=== PATIENT | male | born 1985 | race Caucasian/White ===

== ENCOUNTER 2019-05-28 15:08 | Day surgery (SDC) | payer SELFPAY ==
[~2019-05-28] VITALS: Ht 185.4 cm; Wt 131.5 kg
[2019-05-28] VITALS (9 sets, daily range): BP systolic 118–142; BP diastolic 71–101
--- NOTE | 2019-05-28 15:10 | NUR ---
NOTIFIED OLIVIA MEYER OF PT CONDITION.
[2019-05-28] MEDS ORDERED: fentaNYL INJECTION 100 MCG/2 ML AMP IVP ONE ×3 (15:45→19:45)
[2019-05-28] MEDS ORDERED: KETOROLAC 30 MG/ML VIAL IVP ONE (15:45)
--- NOTE | 2019-05-28 16:00 | ED Chest Pain ---
General Chief Complaint: Chest Pain Stated Complaint: CP Nursing Triage Note: PT AMBULATE TO ROOM 06 WITH C/O CHEST PAIN STARTING THIS MORNING. PT STATES HE DID NOT COME IN EARLIER BECAUSE HE "DOESN'T LIKE GOING TO THE DOCTOR". Nursing Sepsis Screen: No Definite Risk Source: patient Exam Limitations: no limitations History of Present Illness Date Seen by Provider: May 28, 2019 Time Seen by Provider: 15:58 Initial Comments To ER, when asked what is going on today he states "I'm at the doctor's office". His elaborates that he's had some epigastric abdominal pain that radiates through the back deep breathing makes the pain worse. He's had several episodes of vomiting. No fevers or chills or bowel changes. Timing/Duration: changing over time Severity/Quality: moderate Location: epigastric Radiation: no radiation ASA po SENIOR PRODUCT CONSULTANT: No NTG SL SENIOR PRODUCT CONSULTANT: No Associated Symptoms: nausea/vomiting Allergies and Home Medications Allergies Coded Allergies: No Known Drug Allergies (Unverified , 05/28/19) Patient Home Medication List Home Medication List Reviewed: Yes Review of Systems Review of Systems Constitutional: see HPI EENTM: No Symptoms Reported Respiratory: No Symptoms Reported Cardiovascular: No Symptoms Reported Gastrointestinal: See HPI, Abdominal Pain, Nausea, Vomiting Genitourinary: No Symptoms Reported Musculoskeletal: no symptoms reported Skin: no symptoms reported Psychiatric/Neurological: No Symptoms Reported Endocrine: No Symptoms Reported Past Wpxeire-Gqqwaj-Hicdkr Hx Patient Social History Alcohol Use: Denies Use Recreational Drug Use: No Smoking Status: Current Everyday Smoker Type Used: Cigars 2nd Hand Smoke Exposure: Yes Recent Foreign Travel: No Contact w/Someone Who Travel: No Recent Infectious Disease Expo: No Recent Hopitalizations: No Physical Abuse: No Sexual Abuse: No Mistreated: No Fear: No Seasonal Allergies Seasonal Allergies: No Past Medical History Surgeries: No Respiratory: No Cardiac: No Neurological: No Sexually Transmitted Disease: No Genitourinary: No Gastrointestinal: No Musculoskeletal: No Endocrine: No HEENT: No Cancer: No Psychosocial: Yes ADD/ADHD Integumentary: No Blood Disorders: No Physical Exam Vital Signs Vital Signs - First Documented 05/28/19 15:42 Temp 97.5 Pulse 75 B/P (MAP) 153/102 (119) O2 Delivery Room Air Capillary Refill : Less Than 3 Seconds Height, Weight, BMI Height: 6'1.00" Weight: 290lbs. oz. 131.814782dm; BMI Method:Stated General Appearance: No Apparent Distress, WD/WN, Obese HEENT: PERRL/EOMI, TMs Normal Neck: Full Range of Motion, Normal Inspection Respiratory: No Accessory Muscle Use, No Respiratory Distress Cardiovascular: Regular Rate, Rhythm, Normal Peripheral Pulses Gastrointestinal: Normal Bowel Sounds, Soft, Tenderness Extremity: Normal Capillary Refill, Normal Inspection Neurologic/Psychiatric: Alert, Oriented x3 Skin: Normal Color, Warm/Dry Progress/Results/Core Measures Results/Orders Lab Results Laboratory Tests Test 05/28/19 16:01 Range/Units White Blood Count 19.0 H 4.3-11.0 10^3/uL Red Blood Count 4.76 4.35-5.85 10^6/uL Hemoglobin 14.5 13.3-17.7 G/DL Hematocrit 42 40-54 % Mean Corpuscular Volume 88 80-99 FL Mean Corpuscular Hemoglobin 31 25-34 PG Mean Corpuscular Hemoglobin Concent 35 32-36 G/DL Red Cell Distribution Width 13.1 10.0-14.5 % Platelet Count 356 130-400 10^3/uL Mean Platelet Volume 10.5 H 7.4-10.4 FL Neutrophils (%) (Auto) 87 H 42-75 % Lymphocytes (%) (Auto) 7 L 12-44 % Monocytes (%) (Auto) 6 0-12 % Eosinophils (%) (Auto) 0 0-10 % Basophils (%) (Auto) 0 0-10 % Neutrophils # (Auto) 16.5 H 1.8-7.8 X 10^3 Lymphocytes # (Auto) 1.3 1.0-4.0 X 10^3 Monocytes # (Auto) 1.1 H 0.0-1.0 X 10^3 Eosinophils # (Auto) 0.1 0.0-0.3 10^3/uL Basophils # (Auto) 0.0 0.0-0.1 10^3/uL Neutrophils % (Manual) 75 % Lymphocytes % (Manual) 10 % Monocytes % (Manual) 7 % Eosinophils % (Manual) 2 % Basophils % (Manual) 1 % Band Neutrophils 5 % Microcytosis Macrocytosis Blood Morphology Comment NORMAL D-Dimer <= 0.27 0.00-0.49 UG/ML Sodium Level 139 135-145 MMOL/L Potassium Level 4.3 3.6-5.0 MMOL/L Chloride Level 104 98-107 MMOL/L Carbon Dioxide Level 23 21-32 MMOL/L Anion Gap 12 5-14 MMOL/L Blood Urea Nitrogen 11 7-18 MG/DL Creatinine 0.87 0.60-1.30 MG/DL Estimat Glomerular Filtration Rate > 60 BUN/Creatinine Ratio 13 Glucose Level 161 H 70-105 MG/DL Calcium Level 10.0 8.5-10.1 MG/DL Corrected Calcium 9.6 8.5-10.1 MG/DL Total Bilirubin 0.9 0.1-1.0 MG/DL Aspartate Amino Transf (AST/SGOT) 21 5-34 U/L Alanine Aminotransferase (ALT/SGPT) 20 0-55 U/L Alkaline Phosphatase 72 40-136 U/L Troponin I < 0.028 <0.028 NG/ML Total Protein 8.0 6.4-8.2 GM/DL Albumin 4.5 3.2-4.5 GM/DL Lipase 10 8-78 U/L My Orders Orders - OLIVIA MEYER APRN Cbc With Automated Diff (05/28/19 15:43) Comprehensive Metabolic Panel (05/28/19 15:43) Troponin I (05/28/19 15:43) Fibrin Degradation Products (05/28/19 15:43) Ekg Tracing (05/28/19 15:43) Ed Iv/Invasive Line Start (05/28/19 15:43) Us Gallbladder [id number] (05/28/19 15:43) Lipase (05/28/19 15:43) Ketorolac Injection (Toradol Injection) (05/28/19 15:45) Fentanyl Injection (Sublimaze Injection (05/28/19 15:45) Chest 1 View, Ap/Pa Only (05/28/19 15:57) Manual Differential (05/28/19 16:01) Ct Abdomen/Pelvis W (05/28/19 16:27) Ct Chest/Abdomen/Pelvis W (05/28/19 16:29) Iohexol Injection (Omnipaque 350 Mg/Ml 1 (05/28/19 16:45) Received Contrast (Hold Metformin- Contr (05/28/19 16:45) Ns (Ivpb) (Sodium Chloride 0.9% Ivpb Bag (05/28/19 16:45) Ns Iv 1000 Ml (Sodium Chloride 0.9%) (05/28/19 17:15) Antacid Suspension (Mylanta Suspension (05/28/19 17:15) Lidocaine 2% Viscous 15 Ml (Xylocaine Vi (05/28/19 17:15) Medications Given in ED Current Medications Medications Dose Ordered Sig/Diamante Route Start Time Stop Time Status Last Admin Dose Admin Fentanyl Citrate 50 mcg ONCE ONCE IVP 05/28/19 15:45 05/28/19 15:46 DC 05/28/19 16:07 50 MCG Iohexol 100 ml ONCE ONCE IV 05/28/19 16:45 05/28/19 16:46 DC 05/28/19 17:02 100 ML Ketorolac Tromethamine 15 mg ONCE ONCE IVP 05/28/19 15:45 05/28/19 15:46 DC 05/28/19 16:07 15 MG Sodium Chloride 100 ml ONCE ONCE IV 05/28/19 16:45 05/28/19 16:46 DC 05/28/19 17:03 80 ML Vital Signs/I&O 05/28/19 05/28/19 15:42 15:51 Temp 97.5 Pulse 75 B/P (MAP) 153/102 (119) O2 Delivery Room Air Room Air Blood Pressure Mean: 119 Diagnostic Imaging Diagonstic Imaging: Xray, Ultrasound Comments NAME: FAISAL BULLOCK [facility] REC#: [id number] PT STATUS: REG ER : 1985 PHYSICIAN: OLIVIA MEYER APRN ADMIT DATE: 05/28/19/ER Draft Date of Exam:05/28/19 US GALLBLADDER [id number] PROCEDURE: US Gallbladder. TECHNIQUE: Multiple real-time grayscale images were obtained over the right upper quadrant in various projections. INDICATION: Right upper quadrant pain, chest pain. FINDINGS: The gallbladder appeared normal. No stone or sludge. No bile duct dilatation. The liver was nonfocal however its echotexture suggest mild steatosis. The pancreas was obscured by gas. The unobstructed right kidney appeared normal. IMPRESSION: Probable mild hepatic steatosis. No biliary abnormality with no ascites, unobstructed normal right kidney. Dictated on workstation # [id number] Dict: 05/28/19 1645 Trans: 05/28/19 1649 [facility] [id number] Interpreted by: JOSAFAT MORSE Electronically signed by: Departure Impression Primary Impression: Acute appendicitis Qualified Codes: K35.30 - Acute appendicitis with localized peritonitis, without perforation or gangrene Disposition: ADMITTED INPATIENT Condition: Stable Departure-Patient Inst. Referrals: NO,LOCAL PHYSICIAN (PCP/Family) Primary Care Physician Images Torso/Trunk 1 - Other-See Progress Note 2 - Other-See Progress Note OLIVIA MEYER AUTOMATIC OVEN OPERATOR May 28, 2019 16:00
[2019-05-28 16:07] LABS: BASOPHILS % (AUTO) 0 % (0-10); EOSINOPHILS # (AUTO) 0.1 10^3/uL (0.0-0.3); EOSINOPHILS % (AUTO) 0 % (0-10); HEMATOCRIT 42 % (40-54); HEMOGLOBIN 14.5 G/DL (13.3-17.7); LYMPHOCYTES # (AUTO) 1.3 X 10^3 (1.0-4.0); LYMPHOCYTES % (AUTO) 7 % (12-44); MEAN CORPUSCULAR HEMOGLOBIN 31 PG (25-34); MEAN CORPUSCULAR HGB CONC 35 G/DL (32-36); MEAN CORPUSCULAR VOLUME 88 FL (80-99); MEAN PLATELET VOLUME 10.5 FL (7.4-10.4); MONOCYTES # (AUTO) 1.1 X 10^3 (0.0-1.0); MONOCYTES % (AUTO) 6 % (0-12); NEUTROPHILS # (AUTO) 16.5 X 10^3 (1.8-7.8); NEUTROPHILS % (AUTO) 87 % (42-75); PLATELET COUNT 356 10^3/uL (130-400); RED CELL DISTRIBUTION WIDTH 13.1 % (10.0-14.5)
--- NOTE | 2019-05-28 16:16 | Diagnostic Imaging Report ---
INDICATION: Chest pain. COMPARISON: None. FINDINGS: Single frontal view of the chest demonstrates normal heart size and pulmonary vascularity. The lungs are well aerated and clear. No large pleural effusion or pneumothorax is seen. The visualized osseous structures show no acute abnormalities. IMPRESSION: 1. No acute cardiopulmonary process. Dictated by: Dictated on workstation # [id number]
[2019-05-28 16:25] LABS: ALANINE AMINOTRANSFERASE 20 U/L (0-55); ALBUMIN 4.5 GM/DL (3.2-4.5); ALKALINE PHOSPHATASE 72 U/L (40-136); BILIRUBIN,TOTAL 0.9 MG/DL (0.1-1.0); BUN/CREATININE RATIO 13; CARBON DIOXIDE 23 MMOL/L (21-32); CHLORIDE 104 MMOL/L (98-107); CREATININE SERUM 0.87 MG/DL (0.60-1.30); GFR ESTIMATED > 60; GLUCOSE 161 MG/DL (70-105); LIPASE 10 U/L (8-78); POTASSIUM 4.3 MMOL/L (3.6-5.0); SODIUM 139 MMOL/L (135-145)
[2019-05-28] MEDS ORDERED: IOHEXOL 350 MG/ML 100 ML (OMNIPAQUE 350) VIAL IV ONE (16:45)
[2019-05-28] MEDS ORDERED: NS 100 ML (IVPB) BAG IV ONE (16:45)
[2019-05-28] MEDS ORDERED: HOLD METFORMIN - RECEIVED CONTRAST 20 ML VIAL IV SCH (16:45)
--- NOTE | 2019-05-28 16:49 | Diagnostic Imaging Report ---
PROCEDURE: US Gallbladder. TECHNIQUE: Multiple real-time grayscale images were obtained over the right upper quadrant in various projections. INDICATION: Right upper quadrant pain, chest pain. FINDINGS: The gallbladder appeared normal. No stone or sludge. No bile duct dilatation. The liver was nonfocal however its echotexture suggest mild steatosis. The pancreas was obscured by gas. The unobstructed right kidney appeared normal. IMPRESSION: Probable mild hepatic steatosis. No biliary abnormality with no ascites, unobstructed normal right kidney. Dictated by: Dictated on workstation # [id number]
[2019-05-28 17:03] LABS: BAND NEUTROPHILS 5 %; BASOPHILS % (MANUAL) 1 %; EOSINOPHILS % (MANUAL) 2 %; LYMPHOCYTES % (MANUAL) 10 %; MONOCYTES % (MANUAL) 7 %; NEUTROPHILS % (MANUAL) 75 %; RBC MORPH NORMAL
[2019-05-28] MEDS ORDERED: NS IV 1000 ML 1,000 ML IV SCH (17:15)
[2019-05-28] MEDS ORDERED: LIDOCAINE 2% VISCOUS 15 ML UDC PO ONE (17:15)
[2019-05-28] MEDS ORDERED: ANTACID SUSP 30 ML UDC (MYLANTA) PO ONE (17:15)
--- NOTE | 2019-05-28 17:20 | Diagnostic Imaging Report ---
PROCEDURE: CT chest, abdomen, and pelvis with contrast. TECHNIQUE: Multiple contiguous axial images were obtained through the chest, abdomen, and pelvis after the administration of intravenous contrast. Auto Exposure Controls were utilized during the CT exam to meet ALARA standards for radiation dose reduction. INDICATION: Mid abdominal pain. Lower chest pain. COMPARISON: None available. FINDINGS: CT CHEST: Thyroid is normal where seen. No supraclavicular or axillary lymphadenopathy. Bilateral gynecomastia is asymmetric to the right. No mediastinal, hilar or juxtaphrenic lymphadenopathy. Heart is normal in size without pericardial effusion. Normal caliber thoracic aorta. No features of mediastinal hemorrhage. No pleural effusion or pneumothorax. No pulmonary mass, nodule or consolidation. Normal regional skeleton. CT ABDOMEN AND PELVIS: No focal hepatic lesion. No free intraperitoneal air or fluid. Gallbladder and spleen are normal. Pancreas and adrenals are normal. Kidneys and ureters are normal. Specifically, no ureteral calculi. Incidental note of retroaortic left renal vein. The stomach is fluid-filled and there is no wall thickening. No dilated loops of bowel to indicate bowel destruction. The appendix is mildly dilated measuring 11 mm and has a small amount of surrounding inflammation around its base. No abdominal or pelvic lymphadenopathy. No abscess. Normal caliber abdominal aorta. Normal regional skeleton. IMPRESSION: CHEST: No acute process in the chest. ABDOMEN AND PELVIS: 1. Features suggest acute appendicitis. Correlation with physical exam is suggested. No perforation, abscess or bowel obstruction. Dictated by: Dictated on workstation # [id number]
[2019-05-28] MEDS ORDERED: BUP/EPI 0.5% 1:200,000 (MARCAINE) 10ML VIAL IJ ONE (17:26)
--- NOTE | 2019-05-28 18:23 | Consultation - Surgery ---
History of Present Illness History of Present Illness Patient Consulted On(felisha/time) 05/28/19 18:17 Time Seen by Provider: 17:51 History of Present Illness Surgery asked to consult regarding RLQ pain. HPI per ED: PT AMBULATE TO ROOM 06 WITH C/O CHEST PAIN STARTING THIS MORNING. PT STATES HE DID NOT COME IN EARLIER BECAUSE HE "DOESN'T LIKE GOING TO THE DOCTOR". To ER, when asked what is going on today he states "I'm at the doctor's office". His elaborates that he's had some epigastric abdominal pain that radiates through the back deep breathing makes the pain worse. He's had several episodes of vomiting. No fevers or chills or bowel changes. Timing/Duration: changing over time Severity/Quality: moderate Location: epigastric Radiation: no radiation ASA po CIGARETTE TESTER: No NTG SL CIGARETTE TESTER: No Associated Symptoms: nausea/vomiting Pt describes pain that started in the epigastric area and then went down towards umbilicus and has settled mostly in RLQ, but he still has pain in epigastric pain. He describes a sharp stabbing pain. He states the only reason he came in is because the pain is so bad; "normally I can handle any pain". He has also not been able to eat all day because of the pain. Allergies and Home Medications Allergies Coded Allergies: No Known Drug Allergies (Unverified , 05/28/19) Patient Home Medication List Home Medication List Reviewed: Yes Past Yuxckjw-Wglthj-Etatfc Hx Patient Social History Alcohol Use: Denies Use Recreational Drug Use: No Smoking Status: Current Everyday Smoker Type Used: Cigars 2nd Hand Smoke Exposure: Yes Recent Foreign Travel: No Contact w/Someone Who Travel: No Recent Infectious Disease Expo: No Recent Hopitalizations: No Seasonal Allergies Seasonal Allergies: No Surgeries History of Surgeries: No Respiratory History of Respiratory Disorde: No Cardiovascular History of Cardiac Disorders: No Neurological History of Neurological Disord: No Reproductive System Sexually Transmitted Disease: No Genitourinary History of Genitourinary Disor: No Gastrointestinal History of Gastrointestinal Di: No Musculoskeletal History of Musculoskeletal Dis: No Endocrine History of Endocrine Disorders: No HEENT History of HEENT Disorders: No Cancer History of Cancer: No Psychosocial History of Psychiatric Problem: Yes Behavioral Health Disorders: ADD/ADHD Integumentary History of Skin or Integumenta: No Blood Transfusions History of Blood Disorders: No Family Medical History Significant Family History: Diabetes (father), Hypertension (father) Review of Systems-General Constitutional: No chills, No diaphoresis; malaise EENTM: No blurred vision, No double vision, No mouth swelling, No epistaxis Respiratory: No cough, No dyspnea on exertion, No hemoptysis, No short of breath Cardiovascular: No chest pain, No edema Gastrointestinal: abdominal pain; No jaundice, No melena; nausea, vomiting Genitourinary: No dysuria, No frequency, No hematuria Musculoskeletal: No joint pain, No joint swelling, No muscle pain, No muscle stiffness Skin: No change in color, No change in hair/nails Psychiatric/Neurological: Denies Anxiety, Denies Depressed, Denies Seizure, Denies Tremors Other pt denies any abnormal bleeding or bruising. Physical Exam-General Problems Physical Exam Vital Signs Vital Signs - First Documented 05/28/19 15:42 Temp 97.5 Pulse 75 B/P (MAP) 153/102 (119) O2 Delivery Room Air Capillary Refill : Less Than 3 Seconds General Appearance: WD/WN, mild distress, obese Eyes: Bilateral Eye PERRL, Bilateral Eye EOMI HEENT: pharynx normal; No scleral icterus (R), No scleral icterus (L); other (moist oral mucosa) Neck: non-tender, supple, normal inspection Respiratory: chest non-tender, lungs clear, normal breath sounds, no respiratory distress, no accessory muscle use Cardiovascular: regular rate, rhythm, no edema, no murmur Gastrointestinal: normal bowel sounds, no organomegaly, no pulsatile mass, tenderness (RLQ), hernia (umbilical) Back: no CVA tenderness, no vertebral tenderness Extremities: no pedal edema, normal capillary refill Neurologic/Psychiatric: appraiser boats and marine II-XII nml as tested, no motor/sensory deficits, alert, normal mood/affect, oriented x 3 Skin: normal color, warm/dry, tattoos/piercings (multiple on arms) Lymphatic: no adenopathy (neck, axilla or groin) Data Review Labs Laboratory Tests 05/28/19 16:01: White Blood Count 19.0H, Red Blood Count 4.76, Hemoglobin 14.5, Hematocrit 42, Mean Corpuscular Volume 88, Mean Corpuscular Hemoglobin 31, Mean Corpuscular Hemoglobin Concent 35, Red Cell Distribution Width 13.1, Platelet Count 356, Mean Platelet Volume 10.5H, Neutrophils (%) (Auto) 87H, Lymphocytes (%) (Auto) 7L, Monocytes (%) (Auto) 6, Eosinophils (%) (Auto) 0, Basophils (%) (Auto) 0, Neutrophils # (Auto) 16.5H, Lymphocytes # (Auto) 1.3, Monocytes # (Auto) 1.1H, Eosinophils # (Auto) 0.1, Basophils # (Auto) 0.0, Neutrophils % (Manual) 75, Lymphocytes % (Manual) 10, Monocytes % (Manual) 7, Eosinophils % (Manual) 2, Basophils % (Manual) 1, Band Neutrophils 5, Microcytosis , Macrocytosis , Blood Morphology Comment NORMAL, D-Dimer <= 0.27, Sodium Level 139, Potassium Level 4.3, Chloride Level 104, Carbon Dioxide Level 23, Anion Gap 12, Blood Urea Nitrogen 11, Creatinine 0.87, Estimat Glomerular Filtration Rate > 60, BUN/Creatinine Ratio 13, Glucose Level 161H, Calcium Level 10.0, Corrected Calcium 9.6, Total Bilirubin 0.9, Aspartate Amino Transf (AST/SGOT) 21, Alanine Aminotransferase (ALT/SGPT) 20, Alkaline Phosphatase 72, Troponin I < 0.028, Total Protein 8.0, Albumin 4.5, Lipase 10 Assessment/Plan Assessment/Plan Assessment/Plan Acute Appendicitis Pt has RLQ pain with WBC of appx 19k and CT read as acute appendicitis. Pt also had an appendicolith seen on CT. Plan to take pt to OR for Laparoscopic appendectomy, possible open. Discussed risks and complications including but not limited to pain, bleeding, infection, scar, damage to bowel and need for further procedure. All questions answered to his satisfaction. Will get consent, cont IVF, IV ABX healthcare economics consultant to OR, npo, pain control and anti-emetics as needed. Clinical Quality Measures AMI/AHF: ASA po Prior to arrival: LIBBY Gutierrez DO May 28, 2019 18:22
[2019-05-28] MEDS ORDERED: morphine INJ 10 MG/ML 1ML (SYR OR VIAL) ONE (18:46)
[2019-05-28] MEDS ORDERED: ceFAZolin INJECTION 3,000 MG in NS (IVPB) 100 ML IV NR (19:20)
[2019-05-28] MEDS ORDERED: DEXAMETHASONE 10 MG/ML (DECADRON) 1 ML VIAL ONE (19:29)
[2019-05-28] MEDS ORDERED: fentaNYL INJECTION 100 MCG/2 ML AMP ONE (19:29)
[2019-05-28] MEDS ORDERED: ONDANSETRON 4 MG/2 ML (SDV) Z0FRAN ONE (19:29)
[2019-05-28] MEDS ORDERED: LIDOCAINE PF 2% 5 ML (XYLOCAINE) VIAL ONE (19:29)
[2019-05-28] MEDS ORDERED: proPOfol 200 MG/20 ML (DIPRIVAN) VIAL IV ONE (19:29)
[2019-05-28] MEDS ORDERED: ROCURONIUM 10 MG/ML 5 ML SYRINGE IV ONE (19:29)
[2019-05-28] MEDS ORDERED: SEVOFLURANE (ULTANE) 15 ML INHAL SOLN ONE ×5 (19:29→21:47)
[2019-05-28] MEDS ORDERED: MIDAZOLAM 2 MG/2 ML (VERSED) VIAL ONE (19:30)
[2019-05-28] MEDS ORDERED: LACTATED RINGERS 1,000 ML IV PRN (19:38)
--- NOTE | 2019-05-28 19:40 | NUR ---
OR STAFF HERE FOR PT. Addendum: 05/28/19 at 1943 by PARTH REPORT GIVEN BY Dilan MEYER APRN TO OR STAFF.
[2019-05-28] MEDS ORDERED: MEPERIDINE (DEMEROL) INJ 50 MG/ML IVP ONE (19:45)
[2019-05-28] MEDS ORDERED: morphine INJ 10 MG/ML 1ML (SYR OR VIAL) IVP ONE (19:45)
[2019-05-28] MEDS ORDERED: ONDANSETRON 4 MG/2 ML (SDV) Z0FRAN IVP PRN (19:45)
[2019-05-28] MEDS: LACTATED RINGERS 1,000 ML IV PRN ×2 (19:57→21:23)
--- NOTE | 2019-05-28 21:17 | Progress Note-Post Operative ---
Post-Operative Progess Note Surgeon (s)/Cloth Handler (s) Surgeon LIBBY MENDENHALL DO Cloth Handler: none Pre-Operative Diagnosis Acute Appy Post-Operative Diagnosis same Procedure & Operative Findings Date of Procedure 05/28/19 Procedure Performed/Findings Lap appy Anesthesia Type GET Estimated Blood Loss Estimated blood loss (mL): less than 5ml Specimens/Packing Specimens Removed LIBBY Ospina DO May 28, 2019 21:17
[2019-05-28] MEDS ORDERED: ACHD5005 PO (21:19)
--- NOTE | 2019-05-28 21:21 | Discharge Inst-Surgical ---
Discharge Inst-Surgical Depart Medication/Instructions New, Converted or Re-Newed RX: RX Given to Pt/Family Patient Instructions Follow up Appt: Make appointment for 1 week. [phone] Instructions: No lifting greater than 20 pounds. No strenuous activity. May shower in 24 hours, no tub bath or soaking. Use incentive spirometer at home as directed. No Smoking Skin/Wound Care: May remove bandages in am. You need to leave the Dermabond on incision it will fall off on it's own. Symptoms to Report: Appetite Changes, Extremity Discoloration, Numbness/Tingling, Swelling Increased, Bleeding Excessive, Eyesight Changes, Pain Increased, Urine Color Change, Constipation(Persistent), Fever over 101 degree F, Pain/Pressure in chest, Urinating Difficulty, Cough Up/Vomit Blood, Heart Beat Irreg/Pounding, Pain/Pressure in jaw, Cramps in feet or legs, Lightheadedness, Pain/Pressure in shoulder, Diarrhea(Persistent), Memory Changes Suddenly, Questions/Concerns, Weight gain consecutive days, Dizziness/Fainting, Nausea/Vomiting, Shortness of Breath, Weight gain over 2 pounds If questions or concerns contact your physician Or seek help at emergency department. Activity Activity as Tolerated: Yes Activity Instructions: Avoid Stress to Incision Driving Instructions: No Driving/Refer to Dr. Morris Discharge Diet: No Restrictions Diet After 24 Hours: Clear Liquid if Nauseous If Any Problems/Questions/Issu: Contact Your Physician, Go to Emergency Room Skin/Wound Care Infection Signs and Symptoms: Increased Redness, Foul Odor of Wound, Increased Drainage, Skin Itchy or Has a Rash, Increased Swelling, Temperature Above 101 F Wound Care Comment: heating pad to shoulder or neck for pain Bathing Instructions: Shower Stitches/Sapna/Dermabond Dis: Dermabond Ice Pack: Ice On and Off Site (as needed for pain) LIBBY MENDENHALL DO May 28, 2019 21:21
[2019-05-28] MEDS ORDERED: GLYCOPYRROLATE 0.2 MG/ML (ROBINUL) 2 ML VIAL ONE (21:48)
[2019-05-28] MEDS ORDERED: EPINEPHrine INJECTION 1 MG/ML AMP ONE (21:48)
[2019-05-28] MEDS ORDERED: NEOSTIGMINE 3 MG/3 ML VIAL ONE (21:48)
[2019-05-28] MEDS ORDERED: RT-ALBUTEROL HFA (VENTOLIN) PER PUFF IH ONE (21:48)
[2019-05-28] MEDS ORDERED: HYDROcodone/APAP 5 MG/325 MG (LORTAB) TAB PO ONE (22:45)
--- NOTE | 2019-05-28 22:45 | NUR ---
Patient care assumed at this time. Patient alert/oriented. No pain reported at this time per patient. of patient remains at the bedside.
[2019-05-28] MEDS ORDERED: HYDROcodone/APAP 5 MG/325 MG (LORTAB) TAB ONE (23:19)
--- NOTE | 2019-05-28 23:43 | NUR ---
Patient transported via wheelchair to private vehicle. Patient discharged to home in care of spouse. Patient discharge instructions given to and patient. Both verbalized instruction. Script sent home with patient. IV removed from right AC space. Patient voided per toilet and ambulated in room. Gait steady.
--- NOTE | 2019-05-29 02:31 | OPERATIVE REPORT ---
DATE OF SERVICE: 05/28/2019 PREOPERATIVE DIAGNOSIS: Acute appendicitis. POSTOPERATIVE DIAGNOSIS: Acute appendicitis, retrocecal. PROCEDURE: Laparoscopic appendectomy. SURGEON: Lg Bhardwaj D.O. RESIDENT BUYER: None. ANESTHESIA: General endotracheal tube. SPECIMEN: Appendix. BLOOD LOSS: Less than 5 mL. FLUIDS: Per anesthesia. POSTOPERATIVE CONDITION: Stable. INDICATION FOR PROCEDURE: The patient is a 34-year-old male, who had some chest pain, went down to his stomach and then into the right lower quadrant, 19,000 white count and CAT scan read as acute appendicitis. FINDINGS: The patient had acute appendicitis, it was retrocecal, looked to be gangrenous, removed this and sent to pathology. PROCEDURE NOTE: After informed consent was obtained, the patient was brought to the operating room, placed on the operating table in supine position. He was sterilely prepped and draped in normal fashion. Local lidocaine was used to infiltrate the skin above the umbilicus. I made the incision with #11 blade, carried down through the skin into subcutaneous tissue, deepened down to subcutaneous tissue with Bovie electrocautery down to fascia. Fascia was incised with Bovie electrocautery and bluntly entered the abdomen, swept a finger around, placed 0 Vicryl [id number] suture, then placed a limited trocar port under direct visualization. Created pneumoperitoneum and then placed 2 more ports in normal fashion using local lidocaine, 11 blade for stab incision and Versed system, all done under direct visualization, one suprapubically and one in left lower quadrant. The patient was then placed Trendelenburg and rotated a little bit left, move the small intestine out of away, identify the cecum and then saw the appendix, it was going up under retrocecally. I had coming across the mesoappendix making sure to stay away from the small intestine in the cecum, clamping and coagulating and transecting and coming across and then finally able to come under the appendix right at the cecum. Once able to get under and through here, elected to switch to a 5 mm camera and placed an Endo-KEE and clamped across the base of appendix, clamped and fired, thereby transecting the appendix and then continued to take the appendix off with the LigaSure, clamping, coagulating and transecting in a stepwise fashion removing this completely coming through the appendiceal artery. Once it was completely freed up, placed a bag in the abdomen, placed the appendix in the bag and removed through the supraumbilical incision. Placed the port back into the abdomen, copiously irrigated with normal saline, suctioned this out, took a picture of the staple line, looked good. No other obvious pathology, suctioned out as much fluid as possible. Placed the patient supine and removed all ports under direct visualization, allowing pneumoperitoneum to escape, closed supraumbilical incision, closing the fascia with 0 Vicryl suture previously placed. Copiously irrigated all incisions normal saline. Closed the two small 5 mm incisions with single interrupted 4-0 undyed Monocryl subcuticular stitch. Closed the supraumbilical incision with three interrupted 4-0 undyed Monocryl subcuticular stitches. Area was cleaned and dried and Dermabond placed as well as Band-Aids. The patient then transferred to recovery room in stable condition. Sponge, instrument and needle count correct at the end of the case. Job ID: [id number] DocumentID: [id number] Dictated Date: 05/28/2019 21:15:16 Protective Services Social Worker Date: 05/29/2019 02:30:51 Dictated By: LG BHARDWAJ DO
--- NOTE | 2019-05-29 07:39 | Anesthesia-General Post-Op ---
General Patient Condition Mental Status/LOC: Same as Preop Cardiovascular: Satisfactory Nausea/Vomiting: Absent Respiratory: Satisfactory Pain: Controlled Complications: Absent Post Op Complications Complications None Follow Up Care/Instructions Patient Instructions None needed. Anesthesia/Patient Condition Patient Condition Patient is doing well, no complaints, stable vital signs, no apparent adverse anesthesia problems. No complications reported per nursing. YONAS FAUSTIN CRNA May 29, 2019 07:39
== END 2019-05-28 23:43 | disposition home or self-care (01) ==
LOC: ER 15:09 → SDC 17:44
PROVIDERS: ATTEND Surgery
DX: K35.80 Unspecified acute appendicitis (principal); F90.9 Attention-deficit hyperactivity disorder, unspecified type; F17.210 Nicotine dependence, cigarettes, uncomplicated
CPT/HCPCS: 36415; 71045; 71260; 74177; 76705; 80053; 83690; 84484; 85007; 85027; 85379; 93005

== ENCOUNTER 2020-02-10 15:10 | Inpatient (IN) | payer SELFPAY ==
[~2020-02-10] VITALS: Ht 185.5 cm; Wt 158.7 kg
[~2020-02-10 15:10] MED LIST: ACHD5005 PO
[2020-02-10] MEDS ORDERED: L.E.T. SYRINGE 5 ML MM STA (15:31)
--- NOTE | 2020-02-10 15:49 | ED Integumentary General ---
General Stated Complaint: SWELLING/PAIN IN TESTICLES Source: patient Exam Limitations: no limitations History of Present Illness Date Seen by Provider: February 10, 2020 Time Seen by Provider: 15:26 Initial Comments Here with report of swelling of the scrotum over the last few days. Notes he has a wound on the left side. States that the swelling is so much that it has overcome his penis. He has difficulty with urination and has to do that sitting. He does shave in the pubic area. Did note that the swelling was much worse last night and is a little better today after drainage overnight. He has been using warm, moist compresses. Otherwise not doing any therapy. Denies fevers or chills. Denies nausea, vomiting or diarrhea. Does have a difficulty with urination. Has never had anything like this before. Timing/Duration: getting worse, other (2-3 days) Severity: moderate Location: genitalia (scrotum especially on the left side) Possible Cause: no cause identified Associated Symptoms: edema; No fever; swelling/mass/lumps Allergies and Home Medications Allergies Coded Allergies: No Known Drug Allergies (Unverified , 05/28/19) Home Medications Hydrocodone Bit/Acetaminophen 1 Tab Tab, 1 TAB PO Q6H PRN for PAIN-MODERATE Prescribed by: LIBBY MENDENHALL on 05/28/19 6157 Patient Home Medication List Home Medication List Reviewed: Yes Review of Systems Review of Systems Constitutional: see HPI; No chills, No fever EENTM: no symptoms reported Respiratory: no symptoms reported Cardiovascular: no symptoms reported Gastrointestinal: no symptoms reported Genitourinary: see HPI, pain, other (scrotal swelling) Musculoskeletal: no symptoms reported Skin: no symptoms reported Psychiatric/Neurological: No Symptoms Reported All Other Systems Reviewed Negative Unless Noted: Yes Past Rywuwqf-Vyqyrk-Iydryj Hx Past Med/Social Hx: Reviewed Nursing Past Med/Soc Hx Patient Social History Alcohol Use: Occasionally Uses Recreational Drug Use: No Smoking Status: Current Someday Smoker Type Used: Cigars, Smokeless Tobacco 2nd Hand Smoke Exposure: Yes Recent Foreign Travel: No Contact w/Someone Who Travel: No Recent Hopitalizations: No Seasonal Allergies Seasonal Allergies: No Past Medical History Surgeries: No Respiratory: No Cardiac: No Neurological: No Sexually Transmitted Disease: No Genitourinary: No Gastrointestinal: No Musculoskeletal: No Endocrine: No HEENT: No Cancer: No Psychosocial: Yes ADD/ADHD Integumentary: No Blood Disorders: No Family Medical History Reviewed Nursing Family Hx Diabetes, Hypertension Physical Exam Vital Signs Vital Signs - First Documented 02/10/20 15:20 Temp 37.0 Pulse 87 Resp 16 B/P (MAP) 154/99 (117) Pulse Ox 98 O2 Delivery Room Air Capillary Refill : General Appearance: WD/WN, no apparent distress Neck: full range of motion, supple Cardiovascular: regular rate, rhythm, no murmur Respiratory: lungs clear, normal breath sounds Gastrointestinal: non tender, soft Back: normal inspection, no CVA tenderness, no vertebral tenderness Extremities: non-tender, normal inspection Neurologic/Psychiatric: alert, oriented x 3 Skin: other (erythema to the scrotum with left upper portion having what appears to be fluctuant area that has 3 overlying pustules that are draining purulent drainage. There is indurated area that shows inferior and posterior on the scrotum that is approximately 1 x 2 x 8 cm. Scrotum is quite swollen and penis is retracted within the scrotal swelling.) Skin Problem Location: other (scrotum on the left and to a lesser extent on the right) Skin Problem Character: abscess, drainage, erythema, lesion, swelling, warm Progress/Results/Core Measures Results/Orders Lab Results Laboratory Tests Test 02/10/20 15:43 Range/Units White Blood Count 11.9 H 4.3-11.0 10^3/uL Red Blood Count 4.78 4.35-5.85 10^6/uL Hemoglobin 14.5 13.3-17.7 G/DL Hematocrit 41 40-54 % Mean Corpuscular Volume 86 80-99 FL Mean Corpuscular Hemoglobin 30 25-34 PG Mean Corpuscular Hemoglobin Concent 35 32-36 G/DL Red Cell Distribution Width 13.3 10.0-14.5 % Platelet Count 375 130-400 10^3/uL Mean Platelet Volume 10.2 7.4-10.4 FL Neutrophils (%) (Auto) 63 42-75 % Lymphocytes (%) (Auto) 22 12-44 % Monocytes (%) (Auto) 11 0-12 % Eosinophils (%) (Auto) 4 0-10 % Basophils (%) (Auto) 0 0-10 % Neutrophils # (Auto) 7.5 1.8-7.8 X 10^3 Lymphocytes # (Auto) 2.6 1.0-4.0 X 10^3 Monocytes # (Auto) 1.3 H 0.0-1.0 X 10^3 Eosinophils # (Auto) 0.4 H 0.0-0.3 10^3/uL Basophils # (Auto) 0.0 0.0-0.1 10^3/uL Sodium Level 138 135-145 MMOL/L Potassium Level 4.1 3.6-5.0 MMOL/L Chloride Level 105 98-107 MMOL/L Carbon Dioxide Level 25 21-32 MMOL/L Anion Gap 8 5-14 MMOL/L Blood Urea Nitrogen 15 7-18 MG/DL Creatinine 0.86 0.60-1.30 MG/DL Estimat Glomerular Filtration Rate > 60 BUN/Creatinine Ratio 17 Glucose Level 204 H 70-105 MG/DL Lactic Acid Level 1.91 0.50-2.00 MMOL/L Calcium Level 9.1 8.5-10.1 MG/DL Corrected Calcium 9.0 8.5-10.1 MG/DL Total Bilirubin 0.5 0.1-1.0 MG/DL Aspartate Amino Transf (AST/SGOT) 18 5-34 U/L Alanine Aminotransferase (ALT/SGPT) 21 0-55 U/L Alkaline Phosphatase 70 40-136 U/L C-Reactive Protein High Sensitivity 2.19 H 0.00-0.50 MG/DL Total Protein 7.8 6.4-8.2 GM/DL Albumin 4.1 3.2-4.5 GM/DL My Orders Orders - FAZAL WILLIAMSON MD Cbc No Diff (02/10/20 15:31) Cbc With Automated Diff (02/10/20 15:31) Hs C Reactive Protein (02/10/20 15:31) Lactic Acid Analyzer (02/10/20 15:31) Blood Culture (02/10/20 15:31) Wound Culture (02/10/20 15:31) Ed Iv/Invasive Line Start (02/10/20 15:31) Let Solution (Let Solution) (02/10/20 15:31) Comprehensive Metabolic Panel (02/10/20 16:07) Hemoglobin A1c (02/10/20 16:44) Piperacillin Sodium/Tazobactam (Zosyn Vi (02/10/20 16:45) Vancomycin Injection (Vancomycin Injecti (02/10/20 16:45) Mupirocin Ointment (Bactroban Ointment (02/10/20 21:00) Medications Given in ED Current Medications Medications Dose Ordered Sig/Diamante Route Start Time Stop Time Status Last Admin Dose Admin Piperacillin Sod/ Tazobactam Sod 4.5 gm/Sodium Chloride 100 ml @ 200 mls/hr ONCE ONCE IV 02/10/20 16:45 02/10/20 17:14 02/10/20 17:00 200 MLS/HR Vital Signs/I&O 02/10/20 15:20 Temp 37.0 Pulse 87 Resp 16 B/P (MAP) 154/99 (117) Pulse Ox 98 O2 Delivery Room Air Progress Progress Note : Progress Note Seen and evaluated. On evaluation, purulent drainage noted and was cultured. LET applied to wound. Ultrasound scrotum ordered to evaluate for abscess. IV, labs, blood cultures and lactic acid ordered. Monitor patient. 1646: Ultrasound concerning for scrotal cellulitis. Given physical exam findings as well as ultrasound findings, admission is indicated with IV antibiotics. Zosyn 4.5 g IV ordered and vancomycin 2 g IV ordered. I did discuss the case with Dr. Sharma and he accepts patient for admission, inpatient status. Dr. Evans will be consulted. Hemoglobin A1c and chemistries are pending. He was hyperglycemic on last admission albeit slightly. Body habitus and history concerning for diabetes. Monitor patient. 1652: I did discuss the case with Dr. Evans and he agrees. We will initiate mupirocin topically and scrotal support as needed. Diagnostic Imaging Diagonstic Imaging: Ultrasound Plain Films/CT/US/NM/MRI: other Comments [facility] [place], [place] NAME: FAISAL BULLOCK [facility] REC#: [id number] PT STATUS: REG ER : 1985 PHYSICIAN: OLIVIA MEYER APRN ADMIT DATE: 02/10/20/ER Draft Date of Exam:02/10/20 US SCROTUM (Testicle) [id number] PROCEDURE: US scrotum. TECHNIQUE: Multiple real-time grayscale images were obtained over the scrotum in various projections, bilaterally. INDICATION: Pain and swelling in the testicles. FINDINGS: There is diffuse scrotal edema. Testicles are normal in size and have normal blood flow. Echogenicity is homogeneous. There are no hydroceles. There is no varicocele. Epididymides appear normal. IMPRESSION: Scrotal wall thickening with edema. This could be due to scrotal cellulitis. Dictated on workstation # [id number] Dict: 02/10/20 1619 Trans: 02/10/20 1622 [facility] [id number] Interpreted by: FAZAL CAMPBELL MD Electronically signed by: Departure Communication (Admissions) Time/Spoke to Admitting Phy: 16:45 Time/Spoke to Consulting Phy: 16:51 Impression Primary Impression: Cellulitis of scrotum Additional Impression: Uncontrolled type 2 diabetes mellitus with hyperglycemia Disposition: ADMITTED INPATIENT Condition: Stable Admissions Decision to Admit Reason: Admit from ER (General) Decision to Admit/Date: February 10, 2020 Time/Decision to Admit Time: 16:45 Departure-Patient Inst. Referrals: NO,LOCAL PHYSICIAN (PCP/Family) Primary Care Physician FAZAL WILLIAMSON MD February 10, 2020 15:49
[2020-02-10 15:51] LABS: BASOPHILS % (AUTO) 0 % (0-10); EOSINOPHILS # (AUTO) 0.4 10^3/uL (0.0-0.3); EOSINOPHILS % (AUTO) 4 % (0-10); HEMATOCRIT 41 % (40-54); HEMOGLOBIN 14.5 G/DL (13.3-17.7); LYMPHOCYTES # (AUTO) 2.6 X 10^3 (1.0-4.0); LYMPHOCYTES % (AUTO) 22 % (12-44); MEAN CORPUSCULAR HEMOGLOBIN 30 PG (25-34); MEAN CORPUSCULAR HGB CONC 35 G/DL (32-36); MEAN CORPUSCULAR VOLUME 86 FL (80-99); MEAN PLATELET VOLUME 10.2 FL (7.4-10.4); MONOCYTES # (AUTO) 1.3 X 10^3 (0.0-1.0); MONOCYTES % (AUTO) 11 % (0-12); NEUTROPHILS # (AUTO) 7.5 X 10^3 (1.8-7.8); NEUTROPHILS % (AUTO) 63 % (42-75); PLATELET COUNT 375 10^3/uL (130-400); RED CELL DISTRIBUTION WIDTH 13.3 % (10.0-14.5); WHITE BLOOD COUNT 11.9 10^3/uL (4.3-11.0)
--- NOTE | 2020-02-10 16:23 | Diagnostic Imaging Report ---
PROCEDURE: US scrotum. TECHNIQUE: Multiple real-time grayscale images were obtained over the scrotum in various projections, bilaterally. INDICATION: Pain and swelling in the testicles. FINDINGS: There is diffuse scrotal edema. Testicles are normal in size and have normal blood flow. Echogenicity is homogeneous. There are no hydroceles. There is no varicocele. Epididymides appear normal. IMPRESSION: Scrotal wall thickening with edema. This could be due to scrotal cellulitis. Dictated by: Dictated on workstation # [id number]
[2020-02-10] MEDS ORDERED: PIPERACILLIN SODIUM/TAZOBACTAM 4.5 GM in NS (IVPB) 100 ML IV ONE (16:45)
[2020-02-10] MEDS ORDERED: VANCOMYCIN INJECTION 1,000 MG in NS (IVPB) 250 ML IV SCH (16:45)
[2020-02-10 16:54] LABS: ALBUMIN 4.1 GM/DL (3.2-4.5); CHLORIDE 105 MMOL/L (98-107); POTASSIUM 4.1 MMOL/L (3.6-5.0); SODIUM 138 MMOL/L (135-145)
[2020-02-10 16:55] LABS: CALCIUM 9.1 MG/DL (8.5-10.1)
[2020-02-10 16:56] LABS: GLUCOSE 204 MG/DL (70-105)
[2020-02-10 16:57] LABS: TOTAL PROTEIN 7.8 GM/DL (6.4-8.2)
[2020-02-10 16:58] LABS: BILIRUBIN,TOTAL 0.5 MG/DL (0.1-1.0); CARBON DIOXIDE 25 MMOL/L (21-32)
[2020-02-10 17:00] LABS: ALKALINE PHOSPHATASE 70 U/L (40-136); CREATININE SERUM 0.86 MG/DL (0.60-1.30); GFR ESTIMATED > 60
--- OUTSIDE RECORDS SUMMARY | 2020-02-10 17:00 | XMS REPORT | Continuity of Care Document ---
Author Organization Unknown Address Unknown Phone Unavailable Allergies Active Description Code Type Severity Reaction Onset Reported/Identified Relationship to Patient Clinical Status Yes No Known Drug Allergies [id number] Drug Allergy Unknown N/A 05/28/2019 Medications There is no data. Problems Date Dx Coded Attending Type Code Diagnosis Diagnosed By 05/28/2019 DELARISTIDES DO, LIBBY B Ot F17.2 10 NICOTINE DEPENDENCE, CIGARETTES, UNCOMPL 05/28/2019 DELMAN DO, LIBBY B Ot F90.9 ATTENTION-DEFICIT HYPERACTIVITY DISORDER 05/28/2019 DELMAN DO, LIBBY B Ot K35.8 0 UNSPECIFIED ACUTE APPENDICITIS 06/03/2019 DELARISTIDES DO, LIBBY B Ot F17.2 10 NICOTINE DEPENDENCE, CIGARETTES, UNCOMPL 06/03/2019 DELMAN DO, LIBBY B Ot F90.9 ATTENTION-DEFICIT HYPERACTIVITY DISORDER 06/03/2019 DELMAN DO, LIBBY B Ot K35.8 0 UNSPECIFIED ACUTE APPENDICITIS 06/06/2019 DELMAN DO, LIBBY B Ot F17.2 10 NICOTINE DEPENDENCE, CIGARETTES, UNCOMPL 06/06/2019 DELMAN DO, LIBBY B Ot F90.9 ATTENTION-DEFICIT HYPERACTIVITY DISORDER 06/06/2019 DELMAN DO, LIBBY B Ot K35.8 0 UNSPECIFIED ACUTE APPENDICITIS Procedures There is no data. Results Test Result Range Complete blood count (CBC) with automate d white blood cell (WBC) differential - 05/28/19 16:01 Blood leukocytes automated count (number/volume) 19.0 10*3/uL 4.3-11.0 Blood erythrocytes automated count (number/volume) 4.76 10*6/uL 4.35-5.85 Venous blood hemoglobin measurement (mass/volume) 14.5 g/dL 13.3-17.7 Blood hematocrit (volume fraction) 42 % 40-54 Automated erythrocyte mean corpuscular volume 88 [ foz_us] 80-99 Automated erythrocyte mean corpuscular h emoglobin (mass per erythrocyte) 31 pg 25-34 Automated erythrocyte mean corpuscular h emoglobin concentration measurement (mass/volume) 35 g/dL 32-36 Automated erythrocyte distribution width ratio 13. 1 % 10.0- 14.5 Automated blood platelet count (count/volume) 356 10*3/uL 130-400 Automated blood platelet mean volume measurement 10.5 [foz_us] 7.4-10.4 Automated blood neutrophils/100 leukocytes 87 % 42-75 Automated blood lymphocytes/100 leukocytes 7 % 12-44 Blood monocytes/100 leukocytes 6 % 0-12 Automated blood eosinophils/100 leukocytes 0 % 0-10 Automated blood basophils/100 leukocytes 0 % 0-10 Blood neutrophils automated count (number/volume) 16.5 10*3 1.8-7.8 Blood lymphocytes automated count (number/volume) 1.3 10*3 1.0-4.0 Blood monocytes automated count (number/volume) 1. 1 10*3 0.0-1.0 Automated eosinophil count 0.1 10*3/uL 0 .0-0.3 Automated blood basophil count (count/volume) 0.0 10*3/uL 0.0-0.1 Comprehensive metabolic panel - 05/28/19 16:01 Serum or plasma sodium measurement (moles/volume) 139 mmol/L 135-145 Serum or plasma potassium measurement (moles/volume) 4.3 mmol/L 3.6-5.0 Serum or plasma chloride measurement (moles/volume) 104 mmol/L 98-107 Carbon dioxide 23 mmol/L 21-32 Serum or plasma anion gap determination (moles/volume) 12 mmol/L 5-14 Serum or plasma urea nitrogen measurement (mass/volume ) 11 mg/dL 7-18 Serum or plasma creatinine measurement (mass/volume) 0.87 mg/dL 0.60-1.30 Serum or plasma urea nitrogen/creatinine mass ratio 13 NRG Serum or plasma creatinine measurement w ith calculation of estimated glomerular filtration rate > NRG Serum or plasma glucose measurement (mass/volume) 161 mg/dL 70-105 Serum or plasma calcium measurement (mass/volume) 10.0 mg/dL 8.5-10.1 Serum or plasma total bilirubin measurement (mass/volu me) 0.9 mg/dL 0.1-1.0 Serum or plasma alkaline phosphatase casi surement (enzymatic activity/volume) 72 U/L 40-136 Serum or plasma aspartate aminotransfera se measurement (enzymatic activity/volume) 21 U/L 5-34 Serum or plasma alanine aminotransferase measurement (enzymatic activity/volume) 20 U/L 0-55 Serum or plasma protein measurement (mass/volume) 8.0 g/dL 6.4-8.2 Serum or plasma albumin measurement (mass/volume) 4.5 g/dL 3.2-4.5 CALCIUM CORRECTED 9.6 mg/dL 8.5-10.1 Serum or plasma troponin i.cardiac measu rement (mass/volume) - 05/28/19 16:01 Serum or plasma troponin i.cardiac measurement (mass/v olume) < ng/mL <0.028 Lipase - 05/28/19 16:01 Lipase 10 U/L 8-78 Fibrin D-dimer FEU measurement in platel et poor plasma (mass/volume) - 05/28/19 16:01 Fibrin D-dimer FEU measurement in platelet poor plasma (mass/volume) <= ug/mL 0.00-0.49 Manual absolute plasma cell count - 05/01 06/18 16:01 Blood monocytes/100 leukocytes 7 % NRG Manual blood segmented neutrophils/100 leukocytes 75 % NRG Blood band neutrophils/100 leukocytes 5 % NRG Manual blood lymphocytes/100 leukocytes 10 % NRG Manual eosinophils/100 leukocytes in nose 2 % NRG Manual blood basophils/100 leukocytes 1 % NRG Blood erythrocyte morphology finding identification NORMAL NR Complete blood count (CBC) with automate d white blood cell (WBC) differential - 02/10/20 15:43 Blood leukocytes automated count (number/volume) 11.9 10*3/uL 4.3-11.0 Blood erythrocytes automated count (number/volume) 4.78 10*6/uL 4.35-5.85 Venous blood hemoglobin measurement (mass/volume) 14.5 g/dL 13.3-17.7 Blood hematocrit (volume fraction) 41 % 40-54 Automated erythrocyte mean corpuscular volume 86 [ foz_us] 80-99 Automated erythrocyte mean corpuscular h emoglobin (mass per erythrocyte) 30 pg 25-34 Automated erythrocyte mean corpuscular h emoglobin concentration measurement (mass/volume) 35 g/dL 32-36 Automated erythrocyte distribution width ratio 13. 3 % 10.0- 14.5 Automated blood platelet count (count/volume) 375 10*3/uL 130-400 Automated blood platelet mean volume measurement 10.2 [foz_us] 7.4-10.4 Automated blood neutrophils/100 leukocytes 63 % 42-75 Automated blood lymphocytes/100 leukocytes 22 % 12-44 Blood monocytes/100 leukocytes 11 % 0-12 Automated blood eosinophils/100 leukocytes 4 % 0-10 Automated blood basophils/100 leukocytes 0 % 0-10 Blood neutrophils automated count (number/volume) 7.5 10*3 1.8-7.8 Blood lymphocytes automated count (number/volume) 2.6 10*3 1.0-4.0 Blood monocytes automated count (number/volume) 1. 3 10*3 0.0-1.0 Automated eosinophil count 0.4 10*3/uL 0 .0-0.3 Automated blood basophil count (count/volume) 0.0 10*3/uL 0.0-0.1 Blood lactic acid measurement (moles/vol ume) - 02/10/20 15:43 Blood lactic acid measurement (moles/volume) 1.91 mmol/L 0.50-2.00 Serum or plasma C reactive protein measu rement (mass/volume) - 02/10/20 15:43 Serum or plasma C reactive protein measurement (mass/v olume) 2.19 mg/dL 0.00-0.50 Comprehensive metabolic panel - 02/10/20 15:43 Serum or plasma sodium measurement (moles/volume) 138 mmol/L 135-145 Serum or plasma potassium measurement (moles/volume) 4.1 mmol/L 3.6-5.0 Serum or plasma chloride measurement (moles/volume) 105 mmol/L 98-107 Carbon dioxide 25 mmol/L 21-32 Serum or plasma anion gap determination (moles/volume) 8 mmol/L 5-14 Serum or plasma glucose measurement (mass/volume) 204 mg/dL 70-105 Serum or plasma calcium measurement (mass/volume) 9.1 mg/dL 8.5-10.1 Serum or plasma total bilirubin measurement (mass/volu me) 0.5 mg/dL 0.1-1.0 Serum or plasma protein measurement (mass/volume) 7.8 g/dL 6.4-8.2 Serum or plasma albumin measurement (mass/volume) 4.1 g/dL 3.2-4.5 CALCIUM CORRECTED 9.0 mg/dL 8.5-10.1 Encounters ACCT No. Visit Date/Time Discharge Status Pt. Type Provider Facility Loc./Unit Complaint [id number] 05/28/2019 17:44:00 019 23:43:00 DIS Outpatient LIBBY MENDENHALL DO [facility] APPY [id number] 02/10/2020 15:52:00 Document Registration
[2020-02-10 17:01] LABS: BUN/CREATININE RATIO 17
[2020-02-10 17:03] LABS: ALANINE AMINOTRANSFERASE 21 U/L (0-55)
[2020-02-10] MEDS ORDERED: MUPIROCIN 2% OINT 22 GM (BACTROBAN) TUBE ONE (17:09)
[2020-02-10 17:10] LABS: BILIRUBIN,URINE NEGATIVE (NEGATIVE); CLARITY,URINE CLEAR; COLOR,URINE YELLOW; GLUCOSE, URINE (UA) TRACE (NEGATIVE); KETONES,URINE NEGATIVE (NEGATIVE); LEUKOCYTE ESTERASE ,URINE TRACE (NEGATIVE); NITRITE,URINE NEGATIVE (NEGATIVE); PH,URINE 5.5 (5-9); PROTEIN,URINE NEGATIVE (NEGATIVE)
[2020-02-10] MEDS ORDERED: VANCOMYCIN 2000 MG/NS 500 ML IVPB IV NR ×2 (17:15)
[2020-02-10] MEDS ORDERED: HYDROcodone/APAP 7.5 MG/325 MG (LORTAB, LORCET PLUS) TABLET PO STA (17:19)
[2020-02-10] MEDS ORDERED: KETOROLAC 30 MG/ML VIAL IVP STA (17:19)
[2020-02-10] MEDS ORDERED: fentaNYL INJECTION 100 MCG/2 ML AMP IVP STA (17:19)
[2020-02-10 17:21] LABS: BACTERIA,URINE TRACE /HPF; SQUAMOUS EPITHELIAL CELL,UR 0-2 /HPF
--- NOTE | 2020-02-10 17:59 | CONSULTATION REPORT ---
DATE OF SERVICE: HISTORY OF PRESENT ILLNESS: The patient is a 35-year-old male who presented to the Emergency Department with scrotal swelling as well as three small areas of openings with mild serious as well as purulent drainage. He states that he does shave the perineal area and noticed swelling and then developed 3 open areas with some mild drainage. An ultrasound was performed, which did not show any abscess and most likely subcutaneous edema. PAST MEDICAL HISTORY: Does not see any physicians, however, due to his body mass index, may have some level of diabetes, ADHD. PAST SURGICAL HISTORY: None. ALLERGIES: No known drug allergies. MEDICATIONS: Hydrocodone p.r.n. SOCIAL HISTORY: Positive smoke, social alcohol. FAMILY HISTORY: Noncontributory. VITAL SIGNS: Temperature 37.0, blood pressure 154/99, pulse 87, respirations 16, pulse ox 98% on room air. A body mass index 48.6. REVIEW OF SYSTEMS: Obese male, currently in no acute distress. He is not experiencing any shortness of breath or difficulty breathing. No chest pain, palpitations, diaphoresis. No nausea, vomiting. No diarrhea or constipation. He does have difficulty urinating due to the scrotal edema; however, is able to urinate. No red blood per rectum. No dark tarry stools. No fever, chills. No recent inadvertent weight loss. All other review of systems negative. PHYSICAL EXAMINATION: CHEST: Decreased breath sounds in bilateral bases. HEART: Regular, no murmurs. EXTREMITIES: A +1/3 bilateral lower extremity edema. Negative Homans sign. HEENT: No scleral icterus. NECK: No cervical lymphadenopathy. ABDOMEN: Soft, nontender, nondistended. GENITOURINARY: Perineum: There is significant scrotal swelling, which appears to be edema. There is no fluctuance to indicate any abscess. There are three bumps with small openings with mixed fibrinoexudative material as well as clear fluid. LABORATORY DATA: WBC 11.9, hemoglobin 14.5, hematocrit 41, platelets 375. BUN 15, creatinine 0.86. Liver function enzymes are normal. Urinalysis, trace leukocyte esterase and trace bacteria. ASSESSMENT AND PLAN: A 35-year-old male with scrotal cellulitis. This most likely is due to some level of undiagnosed diabetes as well as body habitus and folliculitis. He will be placed on Zosyn and vancomycin, and we will continue to monitor for any developing abscess or any necrotizing soft tissue infection. We will recommend scrotal support in hopes of allowing for the edema to subside sooner. Job ID: [id number] DocumentID: [id number] Dictated Date: 02/10/2020 17:42:07 Lace Tearing Supervisor Date: 02/10/2020 17:57:25 Dictated By: ROBSON HART MD MTDD
--- NOTE | 2020-02-10 18:07 | NUR ---
FAISAL BULLOCK admitted to room 421-1, with an admitting diagnosis of scrotal cellulitis, on 02/10/20 from [facility] I via wheelchair, accompanied by staff. FAISAL BULLOCK introduced to surroundings, call light, bed controls, phone, TV, temperature control, lights, meal times, smoking policy, visitor policy, side rail policy, bathrooms and showers. Patient Rights given to patient in the handbook. FAISAL BULLOCK verbalizes understanding that [facility] is not responsible for the loss or damage to any personal effects or valuables that are kept in the patients possession during their hospitalization. The following Patient Care Plans were discussed with the patients: Discharge Planning, pain management, dehydration, and medications. FAISAL BULLOCK verbalizes understanding of Interdisciplinary Patient Education. Patient and/or family were informed about the Rapid Response Team and its purpose.
[2020-02-10 18:14] VITALS: BP 139/91
[2020-02-10] MEDS ORDERED: CATHETER FLUSH 10 ML SYR IV PRN (18:45)
[2020-02-10] MEDS ORDERED: HYDROcodone/APAP 5 MG/325 MG (LORTAB) TAB PO PRN (18:45)
[2020-02-10] MEDS ORDERED: ONDANSETRON 4 MG/2 ML (SDV) Z0FRAN IV PRN (19:00)
[2020-02-10] MEDS ORDERED: ANTACID SUSP 30 ML UDC (MYLANTA) PO PRN (19:00)
[2020-02-10] MEDS ORDERED: MELATONIN 3 MG TABLET PO PRN (19:00)
[2020-02-10] MEDS ORDERED: polyethylene glycoL POWDER 17 GM (MIRALAX) PACK PO PRN (19:00)
[2020-02-10] MEDS ORDERED: diphenhydrAMINE 25 MG TAB (BENADRYL) PO PRN (19:00)
[2020-02-10] MEDS ORDERED: BISACODYL 10 MG SUPP (DULCOLAX) PR PRN (19:00)
--- OUTSIDE RECORDS SUMMARY | 2020-02-10 19:02 | XMS REPORT | Continuity of Care Document ---
Author Organization Unknown Address Unknown Phone Unavailable Allergies Active Description Code Type Severity Reaction Onset Reported/Identified Relationship to Patient Clinical Status Yes No Known Drug Allergies [id number] Drug Allergy Unknown N/A 05/28/2019 Medications There [...] (moles/volume) 8 mmol/L 5-14 Serum or plasma urea nitrogen measurement (mass/volume ) 15 mg/dL 7-18 Serum or plasma creatinine measurement (mass/volume) 0.86 mg/dL 0.60-1.30 Serum or plasma urea nitrogen/creatinine mass ratio 17 NRG Serum or plasma creatinine measurement w ith calculation of estimated glomerular filtration rate > NRG Serum or plasma glucose measurement (mass/volume) 204 mg/dL 70-105 Serum or plasma calcium measurement (mass/volume) 9.1 mg/dL 8.5-10.1 Serum or plasma total bilirubin measurement (mass/volu me) 0.5 mg/dL 0.1-1.0 Serum or plasma alkaline phosphatase casi surement (enzymatic activity/volume) 70 U/L 40-136 Serum or plasma aspartate aminotransfera se measurement (enzymatic activity/volume) 18 U/L 5-34 Serum or plasma alanine aminotransferase measurement (enzymatic activity/volume) 21 U/L 0-55 Serum or plasma protein measurement (mass/volume) 7.8 g/dL 6.4-8.2 Serum or plasma albumin measurement (mass/volume) 4.1 g/dL 3.2-4.5 CALCIUM CORRECTED 9.0 mg/dL 8.5-10.1 Complete urinalysis with reflex to cultu re - 02/10/20 17:02 Urine color determination YELLOW NRG Urine clarity determination CLEAR NR G Urine pH measurement by test strip 5.5 5-9 Specific gravity of urine by test strip >= 1.016-1.022 Urine protein assay by test strip, semi-quantitative NEGATIVE NEGATIVE Urine glucose detection by automated test strip TR CHASTITY NEGATIVE Erythrocytes detection in urine sediment by light micr oscopy NEGATIVE NEGATIVE Urine ketones detection by automated test strip NE GATIVE NEGATIVE Urine nitrite detection by test strip NEGATIVE NEGATIVE Urine total bilirubin detection by test strip NEGA TIVE NEGATIVE Urine urobilinogen measurement by automated test strip (mass/volume) 0.2 mg/dL < = 1.0 Urine leukocyte esterase detection by dipstick TRA CE NEGATIVE Automated urine sediment erythrocyte cou nt by microscopy (number/high power field) NONE NRG Automated urine sediment leukocyte count by microscopy (number/high power field) [HPF] NRG Bacteria detection in urine sediment by light microsco py TRACE NRG Squamous epithelial cells detection in u rine sediment by light microscopy 0-2 NRG Crystals detection in urine sediment by light microsco py NONE NRG Casts detection in urine sediment by light microscopy NONE NRG Mucus detection in urine sediment by light microscopy SMALL NRG Complete urinalysis with reflex to culture NO NRG Encounters ACCT No. Visit Date/Time Discharge Status Pt. Type Provider Facility Loc./Unit Complaint [id number] 05/28/2019 17:44:00 019 23:43:00 DIS Outpatient LIBBY MENDENHALL DO Via [facility] APPY [id number] 02/10/2020 16:45:[address] Inpatient DALILA AUSTIN, ROSCOE Robbins Via [facility] 4TH SCROTAL CELLULITIS, HYPERGLY CEMIA
--- NOTE | 2020-02-10 19:35 | NUR ---
I FOUND CHEW TOBACCO CANS ON PT'S ROOM. INFORMED PT THAT THIS A TOBACCO FREE HOSPITAL AND I NEEDED TO TAKE IT AWAY. PT SAYING THAT HE IS LEAVING IF HE IS NOT ALLOW TO HAVE HIS TOBACCO. MACHINING DEPARTMENT SUPERVISOR NOTIFIED AND SAID THAT NO TOBACCO ON THE FLOOR IS ALLOW. DR CONNER INFORMED ABOUT SITUATION AND SAID TO ORDER NICOTINE PACH OR GUM BUT NO TOBACCO IS ALLOW. ALSO SAID, PT "IS A GROWN UP MAN. IF WE WANTS TO GO HE CAN GO." EDUCATED PT AND INFORMED ABOUT DR PAT AND HE REFUSED NICOTINE PACH AND GUM. HE AGREED TO GIVE ME THE CANS OF CHEW TOBACCO. CANS WERE PUT ON THE SAFETY LOCK SALES CONTRACTOR ROOM.
[2020-02-10 20:01] VITALS: BP 148/97
[2020-02-10] MEDS: ENOXAPARIN 40 MG/0.4 ML (LOVENOX) SYR SC SCH (20:24)
[2020-02-10] MEDS: MUPIROCIN 2% OINT 22 GM (BACTROBAN) TUBE TOP SCH (20:24)
[2020-02-10] MEDS: SENNOSIDES 8.6 MG (SENOKOT) TAB PO SCH (20:25)
[2020-02-10] MEDS: CATHETER FLUSH 10 ML SYR IV SCH (20:25)
[2020-02-10] MEDS: DOCUSATE SODIUM 100 MG (COLACE) CAP PO SCH (20:25)
[2020-02-10] MEDS ORDERED: MUPIROCIN 2% OINT 22 GM (BACTROBAN) TUBE TOP SCH (21:00)
[2020-02-10] MEDS: inSUlin ASPART (NovoLOG) 1 UNIT/0.01 ML (CHARGE PER UNIT) SC SCH (21:25)
[2020-02-10] MEDS: PIPERACILLIN/TAZO 4.5 GM/NS 100 ML IV SCH ×2 (22:30)
[2020-02-11 00:02] VITALS: BP 158/97
[2020-02-11] MEDS: fentaNYL INJECTION 100 MCG/2 ML AMP IV PRN ×5 (02:49→20:15)
[2020-02-11 04:27] VITALS: BP 120/76
[2020-02-11 05:17] LABS: BASOPHILS # (AUTO) 0.1 10^3/uL (0.0-0.1); BASOPHILS % (AUTO) 1 % (0-10); EOSINOPHILS # (AUTO) 0.5 10^3/uL (0.0-0.3); EOSINOPHILS % (AUTO) 5 % (0-10); HEMATOCRIT 36 % (40-54); HEMOGLOBIN 12.6 G/DL (13.3-17.7); LYMPHOCYTES # (AUTO) 2.9 X 10^3 (1.0-4.0); LYMPHOCYTES % (AUTO) 28 % (12-44); MEAN CORPUSCULAR HEMOGLOBIN 31 PG (25-34); MEAN CORPUSCULAR HGB CONC 35 G/DL (32-36); MEAN CORPUSCULAR VOLUME 88 FL (80-99); MEAN PLATELET VOLUME 10.2 FL (7.4-10.4); MONOCYTES # (AUTO) 1.1 X 10^3 (0.0-1.0); MONOCYTES % (AUTO) 11 % (0-12); NEUTROPHILS # (AUTO) 5.8 X 10^3 (1.8-7.8); NEUTROPHILS % (AUTO) 56 % (42-75); PLATELET COUNT 314 10^3/uL (130-400); RED CELL DISTRIBUTION WIDTH 13.2 % (10.0-14.5); WHITE BLOOD COUNT 10.4 10^3/uL (4.3-11.0)
[2020-02-11 05:44] LABS: ALANINE AMINOTRANSFERASE 18 U/L (0-55); ALBUMIN 3.4 GM/DL (3.2-4.5); ALKALINE PHOSPHATASE 52 U/L (40-136); BILIRUBIN,TOTAL 0.5 MG/DL (0.1-1.0); BUN/CREATININE RATIO 16; CALCIUM 8.1 MG/DL (8.5-10.1); CARBON DIOXIDE 21 MMOL/L (21-32); CHLORIDE 108 MMOL/L (98-107); CREATININE SERUM 0.92 MG/DL (0.60-1.30); GFR ESTIMATED > 60; GLUCOSE 190 MG/DL (70-105); POTASSIUM 4.1 MMOL/L (3.6-5.0); SODIUM 139 MMOL/L (135-145); TOTAL PROTEIN 6.3 GM/DL (6.4-8.2)
[2020-02-11] MEDS: inSUlin ASPART (NovoLOG) 1 UNIT/0.01 ML (CHARGE PER UNIT) SC SCH ×4 (05:50→20:05)
[2020-02-11] MEDS: VANCOMYCIN 2000 MG/NS 500 ML IVPB IV SCH ×4 (05:50→18:06)
[2020-02-11] MEDS: PIPERACILLIN/TAZO 4.5 GM/NS 100 ML IV SCH ×4 (05:50→15:00)
[2020-02-11] MEDS: CATHETER FLUSH 10 ML SYR IV SCH ×3 (05:51→20:06)
[2020-02-11] MEDS: ENOXAPARIN 40 MG/0.4 ML (LOVENOX) SYR SC SCH ×2 (05:57→20:03)
[2020-02-11 07:54] VITALS: BP 121/77
[2020-02-11] MEDS ORDERED: PHARMACY TO DOSE SQ SCH (09:00)
[2020-02-11] MEDS: SENNOSIDES 8.6 MG (SENOKOT) TAB PO SCH ×2 (09:22→21:00)
[2020-02-11] MEDS: DOCUSATE SODIUM 100 MG (COLACE) CAP PO SCH ×2 (09:22→21:00)
[2020-02-11] MEDS: MUPIROCIN 2% OINT 22 GM (BACTROBAN) TUBE TOP SCH ×2 (09:53→20:05)
[2020-02-11] MEDS: IBUPROFEN 600 MG (MOTRIN) TAB PO PRN (09:53)
[2020-02-11 11:47] VITALS: BP 117/71
[2020-02-11] MEDS ORDERED: IBUP-2473 PO ×2 (12:20)
--- NOTE | 2020-02-11 12:21 | NUR ---
SPOKE WITH THE PT TO COMPLETE THE MED REC PT DENIES TAKING ANY PRESCRIPTION MEDS AND SAYS OTC HE TAKES IBUPROFEN AND TAKES 5-6 TABS ONCE DAILY NEEDED
[2020-02-11] MEDS: ONDANSETRON 4 MG (ZOFRAN) ORAL DISSOLVE TAB PO PRN (13:37)
[2020-02-11] MEDS: ACETAMINOPHEN 325 MG TABLET PO PRN (13:45)
[2020-02-11 15:49] VITALS: BP 143/94
--- NOTE | 2020-02-11 17:31 | History & Physical-Hospitalist ---
History of Present Illness HPI/Chief Complaint Silvestre Crisostomo is a 35-year-old male with past medical history of obesity and tobacco abuse who presented with scrotal pain and swelling. He reports that a few days ago he noticed something that appeared to be an ingrown hair. He says that there was pus coming out of it. He considered lancing it himself but did not. He was urged to seek medical care by his friends. He denies any fevers or chills. He denies any nausea or vomiting. He denies any chest pain or shortness of breath. He denies any abdominal pain. He is a current every day tobacco user. He was found to have elevated blood sugars but had not been diagnosed with diabetes. Source: patient Exam Limitations: no limitations Date Seen 02/11/20 Time Seen by a Provider: 09:50 Attending Physician Laura Conner MD PCP No,Local Physician Referring Physician Date of Admission February 10, 2020 at 16:45 Home Medications & Allergies Home Medications Reviewed patient Home Medication Reconciliation performed by pharmacy medication reconciliations industrial maintenance technician and/or nursing. Patients Allergies have been reviewed. Allergies Allergies Coded Allergies No Known Drug Allergies (Unverified05/28/19) Past Nzzlixw-Nueeht-Knqenu Hx Past Med/Social Hx: Reviewed Nursing Past Med/Soc Hx Patient Social History Alcohol Use: Occasionally Uses Recreational Drug Use: No Smoking Status: Current Someday Smoker Type Used: Cigars, Smokeless Tobacco 2nd Hand Smoke Exposure: Yes Recent Foreign Travel: No Contact w/other who traveled: No Recent Hopitalizations: No Recent Infectious Disease Expo: No Immunizations Up To Date Pediatric: Yes Seasonal Allergies Seasonal Allergies: No Past Medical History Surgeries: Appendectomy Sexually Transmitted Disease: No Psychosocial: ADD/ADHD History of Blood Disorders: No Family History Reviewed Nursing Family Hx Diabetes, Hypertension Review of Systems Constitutional: no symptoms reported EENTM: no symptoms reported Respiratory: no symptoms reported Cardiovascular: no symptoms reported Gastrointestinal: no symptoms reported Genitourinary: pain (Swelling and purulent discharge) Musculoskeletal: no symptoms reported Skin: no symptoms reported Psychiatric/Neurological: No Symptoms Reported Physical Exam Physical Exam Vital Signs Vital Signs - First Documented 02/10/20 15:20 Temp 37.0 Pulse 87 Resp 16 B/P (MAP) 154/99 (117) Pulse Ox 98 O2 Delivery Room Air Capillary Refill : Less Than 3 Seconds Height, Weight, BMI Height: 6'1.00" Weight: 290lbs. oz. 131.214453ey; 46.11 BMI Method:Stated General Appearance: No Apparent Distress, Obese HEENT: PERRL/EOMI, Pharynx Normal Neck: Normal Inspection, Supple Respiratory: Lungs Clear, Normal Breath Sounds, No Respiratory Distress Cardiovascular: Regular Rate, Rhythm, No Edema, No Murmur Gastrointestinal: Normal Bowel Sounds, Non Tender, Soft Genital/Rectal: Tenderness (Scrotal swelling, redness, left-sided blistering lesion, no discharge noted) Extremity: Normal Inspection, Non Tender, No Pedal Edema Neurologic/Psychiatric: Alert, Oriented x3, No Motor/Sensory Deficits, Normal Mood/Affect Skin: Normal Color, Warm/Dry, Other (Scrotal lesion) Results Results/Procedures Labs Laboratory Tests 02/10/20 15:43 02/11/20 05:05 Patient resulted labs reviewed. Imaging: Reviewed Imaging Report Assessment/Plan Admission Diagnosis Cellulitis of scrotum Admission Status: Inpatient Order (span 2 midnights) Reason for Inpatient Admission: Cellulitis requiring IV antibiotics Assessment and Plan Cellulitis of scrotum Redness, swelling, purulent discharge, fluctuance Surgery consulted, appreciate assistance Ultrasound with no abscess visualized Started on vancomycin and Zosyn Wound culture growing staph aureus, presumed MRSA Discontinue Zosyn Type II diabetes mellitus with hyperglycemia Sliding scale insulin Hemoglobin A1c pending Needs to be started on metformin on discharge Morbid obesity BMI 46, clinically significant, no acute management needs Tobacco abuse Nicotine patch ordered DVT prophylaxis: Lovenox Diagnosis/Problems Diagnosis/Problems (1) Cellulitis of scrotum Status: Acute (2) Type II diabetes mellitus Status: Acute Qualifiers: Diabetes mellitus residential insulin use: without terminal press operator use Diabetes mellitus complication status: with hyperglycemia Qualified Codes: E11.65 - Type 2 diabetes mellitus with hyperglycemia (3) Morbid obesity with BMI of 45.0-49.9, adult Status: Chronic (4) Tobacco abuse Status: Chronic Clinical Quality Measures DVT/VTE Risk/Contraindication: Risk Factor Score Per Nursin RFS Level Per Nursing on Admit: 3=High LAURA CONNER MD February 11, 2020 17:31
[2020-02-11] MEDS ORDERED: NICOTINE 2 MG GUM (NICORETTE) PO PRN (17:45)
[2020-02-11] MEDS: NICOTINE 14 MG (NICODERM) PATCH TD SCH (18:37)
[2020-02-11 19:53] VITALS: BP 149/84
[2020-02-12] VITALS (26 sets, daily range): BP systolic 109–171; BP diastolic 68–103
[2020-02-12] MEDS: fentaNYL INJECTION 100 MCG/2 ML AMP IV PRN ×4 (00:13→14:30)
[2020-02-12] MEDS: VANCOMYCIN 2000 MG/NS 500 ML IVPB IV SCH ×2 (05:03)
[2020-02-12] MEDS: CATHETER FLUSH 10 ML SYR IV SCH ×3 (05:03→22:16)
[2020-02-12] MEDS: inSUlin ASPART (NovoLOG) 1 UNIT/0.01 ML (CHARGE PER UNIT) SC SCH ×3 (06:24→17:50)
[2020-02-12] MEDS: DOCUSATE SODIUM 100 MG (COLACE) CAP PO SCH ×2 (06:40→19:38)
[2020-02-12] MEDS: ENOXAPARIN 40 MG/0.4 ML (LOVENOX) SYR SC SCH ×2 (06:40→19:35)
[2020-02-12] MEDS: NICOTINE PATCH REMOVAL TP SCH (06:40)
[2020-02-12] MEDS: SENNOSIDES 8.6 MG (SENOKOT) TAB PO SCH ×2 (06:41→19:38)
[2020-02-12] MEDS: NICOTINE 14 MG (NICODERM) PATCH TD SCH (06:41)
[2020-02-12] MEDS: MUPIROCIN 2% OINT 22 GM (BACTROBAN) TUBE TOP SCH ×2 (06:42→19:38)
[2020-02-12 06:44] LABS: BASOPHILS % (AUTO) 0 % (0-10); EOSINOPHILS # (AUTO) 0.4 10^3/uL (0.0-0.3); EOSINOPHILS % (AUTO) 4 % (0-10); HEMATOCRIT 38 % (40-54); HEMOGLOBIN 12.9 G/DL (13.3-17.7); LYMPHOCYTES # (AUTO) 2.7 X 10^3 (1.0-4.0); LYMPHOCYTES % (AUTO) 27 % (12-44); MEAN CORPUSCULAR HEMOGLOBIN 30 PG (25-34); MEAN CORPUSCULAR HGB CONC 34 G/DL (32-36); MEAN CORPUSCULAR VOLUME 88 FL (80-99); MEAN PLATELET VOLUME 10.8 FL (7.4-10.4); MONOCYTES # (AUTO) 1.1 X 10^3 (0.0-1.0); MONOCYTES % (AUTO) 11 % (0-12); NEUTROPHILS # (AUTO) 5.9 X 10^3 (1.8-7.8); NEUTROPHILS % (AUTO) 58 % (42-75); PLATELET COUNT 326 10^3/uL (130-400); RED CELL DISTRIBUTION WIDTH 12.9 % (10.0-14.5); WHITE BLOOD COUNT 10.1 10^3/uL (4.3-11.0)
[2020-02-12 07:05] LABS: ALANINE AMINOTRANSFERASE 24 U/L (0-55); ALBUMIN 3.6 GM/DL (3.2-4.5); ALKALINE PHOSPHATASE 56 U/L (40-136); BILIRUBIN,TOTAL 0.5 MG/DL (0.1-1.0); BUN/CREATININE RATIO 14; CALCIUM 8.7 MG/DL (8.5-10.1); CARBON DIOXIDE 23 MMOL/L (21-32); CHLORIDE 108 MMOL/L (98-107); CREATININE SERUM 0.81 MG/DL (0.60-1.30); GFR ESTIMATED > 60; GLUCOSE 155 MG/DL (70-105); POTASSIUM 4.2 MMOL/L (3.6-5.0); SODIUM 138 MMOL/L (135-145); TOTAL PROTEIN 6.8 GM/DL (6.4-8.2)
--- NOTE | 2020-02-12 10:43 | Progress Note-Pre Operative ---
Pre-Operative Progress Note H&P Reviewed The H&P was reviewed, patient examined and no changes noted. Date Seen by Provider: February 12, 2020 Time Seen by Provider: 10:00 Date H&P Reviewed: February 12, 2020 Time H&P Reviewed: 10:00 Pre-Operative Diagnosis: left scrotal abscess ROBSON HART MD February 12, 2020 10:43
[2020-02-12] MEDS ORDERED: SUCCINYLCHOLINE INJ 100 MG/5 ML SYR ONE (11:32)
[2020-02-12] MEDS ORDERED: LIDOCAINE PF 2% 5 ML (XYLOCAINE) VIAL ONE (11:32)
[2020-02-12] MEDS ORDERED: ONDANSETRON 4 MG/2 ML (SDV) Z0FRAN ONE (11:32)
[2020-02-12] MEDS ORDERED: proPOfol 200 MG/20 ML (DIPRIVAN) VIAL IV ONE ×3 (11:32→13:05)
[2020-02-12] MEDS ORDERED: MIDAZOLAM 2 MG/2 ML (VERSED) VIAL ONE (11:32)
[2020-02-12] MEDS ORDERED: fentaNYL INJECTION 100 MCG/2 ML AMP ONE (11:33)
--- NOTE | 2020-02-12 11:44 | NUR ---
TO OR PER BED.
[2020-02-12] MEDS ORDERED: LACTATED RINGERS 1,000 ML IV PRN (11:46)
[2020-02-12] MEDS ORDERED: LIDOCAINE/EPI 1%-1:100,000 (XYLOCAINE) 20ML ONE ×2 (11:47→13:12)
[2020-02-12] MEDS ORDERED: DESFLURANE (SUPRANE) 15 ML INHAL SOLN ONE (11:51)
[2020-02-12] MEDS ORDERED: RT-ALBUTEROL HFA (PROAIR HFA) 8.5 GM IH ONE (12:26)
[2020-02-12] MEDS ORDERED: SEVOFLURANE (ULTANE) 15 ML INHAL SOLN ONE ×3 (12:26→13:05)
[2020-02-12] MEDS ORDERED: morphine INJ 10 MG/ML 1ML (SYR OR VIAL) ONE (12:50)
[2020-02-12] MEDS ORDERED: PROPOFOL DRIP (ICU) 100 ML IV ONE ×2 (12:55→14:20)
[2020-02-12] MEDS ORDERED: PROMETHAZINE INJ 25 MG/ML (PHENERGAN) AMP IVP ONE (13:00)
[2020-02-12] MEDS ORDERED: MEPERIDINE (DEMEROL) INJ 50 MG/ML IVP ONE (13:00)
[2020-02-12] MEDS ORDERED: morphine INJ 10 MG/ML 1ML (SYR OR VIAL) IVP ONE (13:00)
[2020-02-12] MEDS ORDERED: HYDROmorphone 2 MG/ML VIAL (DILAUDID) IV ONE (13:00)
[2020-02-12] MEDS ORDERED: ONDANSETRON 4 MG/2 ML (SDV) Z0FRAN IVP PRN (13:00)
[2020-02-12] MEDS ORDERED: EPINEPHrine INJECTION 1 MG/ML AMP ONE (13:05)
[2020-02-12] MEDS ORDERED: ROCURONIUM 10 MG/ML 5 ML SYRINGE IV ONE (13:05)
--- NOTE | 2020-02-12 13:06 | Progress Note - Hospitalist ---
Subjective HPI/CC On Admission Date Seen by Provider: February 12, 2020 Time Seen by Provider: 11:15 Silvestre Crisostomo is a 35-year-old male with past medical history of obesity and tobacco abuse who presented with scrotal pain and swelling. He reports that a few days ago he noticed something that appeared to be an ingrown hair. He says that there was pus coming out of it. He considered lancing it himself but did not. He was urged to seek medical care by his friends. He denies any fevers or chills. He denies any nausea or vomiting. He denies any chest pain or shortness of breath. He denies any abdominal pain. He is a current every day tobacco user. He was found to have elevated blood sugars but had not been diagnosed with diabetes. Subjective/Events-last exam He reports continued scrotal pain and swelling. He denies any fevers or chills. He denies any nausea or vomiting. He has no other complaints or concerns. Focused Exam Lactate Level 02/10/20 15:43: Lactic Acid Level 1.91 Objective Exam Vital Signs Vital Signs Date Time Temp Pulse Resp B/P (MAP) Pulse Ox O2 Delivery O2 Flow Rate FiO2 02/12/20 11:27 35.9 75 20 122/74 (90) 99 Room Air Capillary Refill : Greater Than 3 SecondsLess Than 3 Seconds General Appearance: No Apparent Distress, Obese Respiratory: Lungs Clear, Normal Breath Sounds, No Respiratory Distress Cardiovascular: Regular Rate, Rhythm, No Edema, No Murmur Gastrointestinal: Normal Bowel Sounds, Non Tender, Soft Genital/Rectal: Other (Scrotal swelling and redness with induration) Extremity: Normal Inspection, Non Tender, No Pedal Edema Neurologic/Psychiatric: Alert, Oriented x3, No Motor/Sensory Deficits, Normal M ood/Affect Skin: Normal Color, Warm/Dry Results/Procedures Lab Laboratory Tests 02/12/20 06:07 Patient resulted labs reviewed. Imaging: Reviewed Imaging Report Assessment/Plan Assessment and Plan Assess & Plan/Chief Complaint Cellulitis of scrotum Possible abscess Surgery consulted, appreciate assistance Concern for developing abscess Planning for I&D today Culture growing MRSA Continue vancomycin Type II diabetes mellitus with hyperglycemia Sliding scale insulin Hemoglobin A1c 7.7% Needs to be started on metformin on discharge Morbid obesity BMI 46, clinically significant, no acute management needs Tobacco abuse Nicotine patch ordered DVT prophylaxis: Lovenox Diagnosis/Problems Diagnosis/Problems (1) Cellulitis of scrotum Status: Acute (2) Type II diabetes mellitus Status: Acute Qualifiers: Diabetes mellitus ad terminal makeup operator insulin use: without ad terminal makeup operator use Diabetes mellitus complication status: with hyperglycemia Qualified Codes: E11.65 - Type 2 diabetes mellitus with hyperglycemia (3) Morbid obesity with BMI of 45.0-49.9, adult Status: Chronic (4) Tobacco abuse Status: Chronic Clinical Quality Measures DVT/VTE Risk/Contraindication: Risk Factor Score Per Nursin RFS Level Per Nursing on Admit: 3=High ROSCOE CONNER MD February 12, 2020 13:06
--- NOTE | 2020-02-12 13:29 | Progress Note-Post Operative ---
Post-Operative Progess Note Surgeon (s)/Sidewalk Repairer (s) Surgeon ROBSON HART MD Sidewalk Repairer: none Pre-Operative Diagnosis left scrotal abscess Post-Operative Diagnosis same with overlying skin necrosis. Procedure & Operative Findings Date of Procedure 02/12/20 Procedure Performed/Findings left scrotum debridement skin and subcutaneous tissue 2x2cm. Anesthesia Type get Estimated Blood Loss Estimated blood loss (mL): minimal Specimens/Packing Specimens Removed c&s scrotum ROBSON HART MD February 12, 2020 13:29
--- NOTE | 2020-02-12 13:50 | Diagnostic Imaging Report ---
EXAMINATION: Portable semierect AP chest at 132h. INDICATION: ET tube placement The heart is mildly enlarged and in both the heart and the central pulmonary vascularity do seem more prominent than noted on the prior exam of 05/28/2019. These findings do suggest that there is an element of mild pulmonary congestion present. Furthermore in the interval since the prior exam a vague area of increased density has developed in the right upper lobe. This is most likely is due to pneumonia/atelectasis. A band of increased density has also developed in the left lung base. This too may be related to pneumonia/atelectasis. There is no significant pleural effusion identified. The mediastinum is somewhat prominent but not abnormally widened. The osseous structures are intact. The patient has been intubated. The ET tube tip overlies the proximal air tracheal air shadow just cephalad to the thoracic inlet. IMPRESSION: 1. The appearance of the chest has worsened since the prior exam as the heart has increased in size and there are now appears to be mild pulmonary congestion. Right upper lobe and left lower lobe pneumonia/atelectasis are also suspected. 2. The patient has been intubated and the ET tube tip lies just above the thoracic inlet. Dictated by: Dictated on workstation # [id number]
[2020-02-12] MEDS: PROPOFOL DRIP (ICU) 100 ML IV SCH ×3 (14:30→22:12)
[2020-02-12 15:43] LABS: ABG BASE EXCESS -0.5 MMOL/L (-2.5-2.5); ABG OXYGEN SATURATION 82 % (94-100); ABG PCO2 52 MMHG (35-45); ABG PO2 58 MMHG (79-93); ABG TCO2 26.8 MMOL/L (21.0-31.0); ALLENS TEST YES-POS
[2020-02-12 15:44] LABS: INSPIRED O2 30%; PATIENT TEMP 36.7; VENTILATOR YES
--- NOTE | 2020-02-12 16:26 | NUR ---
1235 PT TO ROOM ICU REPORT FROM OR CREW TO Mikki ROLDAN RN PAR NURSE. REPORT RECEIVED FROM Arlene HENRIQUEZ RN. THIS RN ASSISTED WITH PT CARE AT THAT TIME 1340 REPORT RECEIVED FROM Mikki MEDRANO RN. PT VENTILATED DR CONNRE NOTIFIED OF PT'S CONDITION ORDERS TO NOTIFY DR BATISTA AND E-ICU AND AWA TINAJERO UPDATED DR CONNER ON PT'S CONDITION THIS RN ATTEMPTED TO NOTIFY DR BATISTA WITH NO SUCCESS, THIS RN THEN CALLED E-ICU FOR ORDERS. NEW ORDERS RECEIVED FROM DR MCKEON. SEE ORDER HX. 1430 ORDERS RECEIVED TO CONTINUE VENTILATION ON PT. 1550 CRITICAL LAB RESULTS GIVEN TO DR MCKEON NEW ORDERS RECEIVED TO CHANGE VENT SETTINGS. GLADIS RT IN PT'S ROOM AND CHANGES MADE TO INCREASE FI02 TO 40% AND INCREASE TV TO 640. PT'S CALLED AND UPDATED ON PT'S CONDITION.
[2020-02-12] MEDS ORDERED: TROUGH ORDER-PHARMACY XX ONE (17:00)
[2020-02-12] MEDS: VANCOMYCIN INJECTION 2,250 MG in NS IV 500 ML 500 ML IV SCH (18:15)
[2020-02-12] MEDS: inSUlin ASPART (NovoLOG) 1 UNIT/0.01 ML (CHARGE PER UNIT) SQ SCH ×2 (18:15→23:52)
--- NOTE | 2020-02-12 18:41 | OPERATIVE REPORT ---
DATE OF SERVICE: 02/12/2020 ADMITTING PHYSICIAN: Dr. Sharma. PREOPERATIVE DIAGNOSIS: Left scrotal abscess. POSTOPERATIVE DIAGNOSIS: Left scrotal abscess with overlying necrotic skin and subcutaneous tissue. PROCEDURE: Debridement left scrotum(2x2cm) SURGEON: Robson Hart MD. ANESTHESIA: General endotracheal. ESTIMATED BLOOD LOSS: Minimal. FINDINGS: Cellulitis with intradermal small abscesses, which was excised until normal subcutaneous fat was identified. The area of the dimension was approximately 2 x 2 cm. DISPOSITION: The patient tolerated the procedure well. INDICATIONS: The patient is a 35-year-old male who presented to the Emergency Department with pain and swelling in the scrotal region starting several days ago. This developed into areas of opening with mild fibrinopurulent exudative drainage. The perineal region also became more swollen and it was difficult to urinate. He was initially medically managed. Cultures did grow MRSA. However, the area did become harder and there was continued purulent drainage. Due to the location as well as his body mass index and undiagnosed diabetes we felt it was prudent to proceed with debridement to prevent further infection and necrotizing soft tissue infection. DESCRIPTION OF PROCEDURE: The patient was brought to the operating room, laid supine on the table. After adequate IV pain and sedative medications and general endotracheal intubation, the perineum was prepped and draped in standard surgical fashion. 1% lidocaine with epinephrine was used to anesthetize overlying skin in the left scrotum. The necrotic overlying skin was then excised using a 15 blade, which encompassed an area of 2 x 2 cm in size. This extended through the full thickness of the skin until we reached the subcutaneous tissue, which was viable and soft. Good hemostasis was achieved using electrocautery. The wound was then packed with one inch iodoform gauze followed by 4 x 4 gauze, ABD pad followed by mesh shorts. The patient tolerated the procedure well. We will continue to medical therapy with IV antibiotics as well as wound care with dressing changes on a daily basis. Job ID: [id number] DocumentID: [id number] Dictated Date: 02/12/2020 12:41:41 Director Sales Support Date: 02/12/2020 18:40:38 Dictated By: ROBSON HART MD [facility]
[2020-02-12] MEDS ORDERED: DexMEDEtomidine 250 ML DRIP 250 ML IV ONE (18:51)
[2020-02-12] MEDS: DexMEDEtomidine 250 ML DRIP 250 ML IV SCH ×2 (19:10→23:00)
[2020-02-12] MEDS: LACTATED RINGERS 1,000 ML IV SCH (19:37)
[2020-02-13] VITALS (17 sets, daily range): BP systolic 127–165; BP diastolic 76–103
[2020-02-13] MEDS: PROPOFOL DRIP (ICU) 100 ML IV SCH ×3 (01:11→06:16)
[2020-02-13 03:27] LABS: ABG BASE EXCESS 0.8 MMOL/L (-2.5-2.5); ABG OXYGEN SATURATION 94 % (94-100); ABG PCO2 44 MMHG (35-45); ABG PH 7.38 (7.37-7.43); ABG PO2 70 MMHG (79-93); ABG TCO2 26.5 MMOL/L (21.0-31.0)
[2020-02-13 03:32] LABS: ALLENS TEST YES-POS; INSPIRED O2 25%; PATIENT TEMP 37.4; VENTILATOR YES
[2020-02-13] MEDS: DexMEDEtomidine 250 ML DRIP 250 ML IV SCH (03:37)
[2020-02-13 04:23] LABS: BASOPHILS % (AUTO) 0 % (0-10); EOSINOPHILS # (AUTO) 0.2 10^3/uL (0.0-0.3); EOSINOPHILS % (AUTO) 2 % (0-10); HEMATOCRIT 39 % (40-54); HEMOGLOBIN 13.4 G/DL (13.3-17.7); LYMPHOCYTES # (AUTO) 1.9 X 10^3 (1.0-4.0); LYMPHOCYTES % (AUTO) 19 % (12-44); MEAN CORPUSCULAR HEMOGLOBIN 31 PG (25-34); MEAN CORPUSCULAR HGB CONC 35 G/DL (32-36); MEAN CORPUSCULAR VOLUME 88 FL (80-99); MEAN PLATELET VOLUME 10.5 FL (7.4-10.4); MONOCYTES % (AUTO) 10 % (0-12); NEUTROPHILS # (AUTO) 6.8 X 10^3 (1.8-7.8); NEUTROPHILS % (AUTO) 69 % (42-75); PLATELET COUNT 358 10^3/uL (130-400); WHITE BLOOD COUNT 9.9 10^3/uL (4.3-11.0)
[2020-02-13 04:37] LABS: ALBUMIN 3.7 GM/DL (3.2-4.5); CHLORIDE 107 MMOL/L (98-107); POTASSIUM 4.3 MMOL/L (3.6-5.0); SODIUM 139 MMOL/L (135-145)
[2020-02-13 04:39] LABS: CALCIUM 8.8 MG/DL (8.5-10.1); TRIGLYCERIDES 229 MG/DL (<150)
[2020-02-13 04:40] LABS: GLUCOSE 205 MG/DL (70-105); TOTAL PROTEIN 7.2 GM/DL (6.4-8.2)
[2020-02-13 04:41] LABS: CARBON DIOXIDE 22 MMOL/L (21-32)
[2020-02-13 04:42] LABS: BILIRUBIN,TOTAL 0.4 MG/DL (0.1-1.0)
[2020-02-13 04:43] LABS: ALKALINE PHOSPHATASE 52 U/L (40-136); PHOSPHORUS 2.8 MG/DL (2.3-4.7)
[2020-02-13 04:44] LABS: GFR ESTIMATED > 60
[2020-02-13 04:45] LABS: BUN/CREATININE RATIO 13
[2020-02-13 04:46] LABS: ALANINE AMINOTRANSFERASE 31 U/L (0-55); MAGNESIUM 2.1 MG/DL (1.6-2.4)
[2020-02-13] MEDS: VANCOMYCIN INJECTION 2,250 MG in NS IV 500 ML 500 ML IV SCH ×2 (05:50→18:43)
[2020-02-13] MEDS: inSUlin ASPART (NovoLOG) 1 UNIT/0.01 ML (CHARGE PER UNIT) SQ SCH ×4 (05:51→21:30)
[2020-02-13] MEDS ORDERED: KCL 20 MEQ TAB (K-DUR) PO SCH (06:00)
[2020-02-13] MEDS ORDERED: POTASSIUM CL 10MEQ/50ML IVPB 50 ML IV SCH (06:00)
[2020-02-13] MEDS ORDERED: MAGNESIUM 1 GM/100 ML IVPB 100 ML IV SCH (06:00)
[2020-02-13] MEDS: CATHETER FLUSH 10 ML SYR IV SCH ×3 (06:17→21:43)
--- NOTE | 2020-02-13 06:36 | Pulmonary Consultation ---
History of Present Illness History of Present Illness Date Seen by Provider: February 13, 2020 Time Seen by Provider: 06:31 Date of Admission Allergies and Home Medications Allergies Coded Allergies: No Known Drug Allergies (Unverified , 05/28/19) Home Medications Ibuprofen 200 Mg Tablet, 1,000-1,200 MG PO DAILY PRN for PAIN-MILD (1-4), (Reported) Past Dylvepi-Lyocty-Ofclmw Hx Past Med/Social Hx: Reviewed Nursing Past Med/Soc Hx Patient Social History Alcohol Use: Occasionally Uses Recreational Drug Use: No Smoking Status: Current Someday Smoker Type Used: Cigars, Smokeless Tobacco 2nd Hand Smoke Exposure: Yes Recent Foreign Travel: No Contact w/Someone Who Travel: No Recent Infectious Disease Expo: No Recent Hopitalizations: No Physical Abuse: No Sexual Abuse: No Mistreated: No Fear: No Immunizations Up To Date PED Vaccines UTD: Yes Seasonal Allergies Seasonal Allergies: No Past Medical History Surgeries: Yes Appendectomy Respiratory: No Currently Using CPAP: No Currently Using BIPAP: No Cardiac: No Neurological: No Sexually Transmitted Disease: No Genitourinary: No Gastrointestinal: No Musculoskeletal: No Endocrine: No HEENT: No Cancer: No Psychosocial: Yes ADD/ADHD Integumentary: No Blood Disorders: No Family Medical History Reviewed Nursing Family Hx Diabetes, Hypertension Review of Systems Time Seen by Provider: 06:36 Sepsis Event Evaluation Height, Weight, BMI Height: 6'1.00" Weight: 290lbs. oz. 131.824092jf; 46.11 BMI Method:Stated Exam Exam Vital Signs Date Time Temp Pulse Resp B/P (MAP) Pulse Ox O2 Delivery O2 Flow Rate FiO2 02/13/20 06:26 Mechanical Ventilator 21.00 02/13/20 06:19 70 15 98 25 02/13/20 06:16 64 145/101 02/13/20 06:00 67 14 145/101 (116) 98 Mechanical Ventilator 25.00 02/13/20 05:00 67 13 142/99 (113) 98 Mechanical Ventilator 25.00 02/13/20 04:00 37.4 02/13/20 04:00 68 14 138/95 (109) 98 Mechanical Ventilator 25.00 02/13/20 04:00 98 Mechanical Ventilator 25 02/13/20 03:37 68 137/94 02/13/20 03:37 68 137/94 02/13/20 03:00 67 14 137/94 (108) 99 Mechanical Ventilator 25.00 02/13/20 02:30 Mechanical Ventilator 25.00 02/13/20 02:26 63 14 99 30 02/13/20 02:00 66 13 134/93 (107) 100 Mechanical Ventilator 30.00 02/13/20 01:11 64 132/91 02/13/20 01:00 65 13 132/91 (105) 100 Mechanical Ventilator 30.00 02/13/20 01:00 65 02/13/20 00:00 37.1 02/13/20 00:00 98 Mechanical Ventilator 30 02/13/20 00:00 66 13 132/94 (107) 99 Mechanical Ventilator 30.00 02/12/20 23:00 66 13 146/103 (117) 99 Mechanical Ventilator 30.00 02/12/20 23:00 66 144/104 02/12/20 22:22 66 14 99 40 02/12/20 22:12 67 142/103 02/12/20 22:00 67 13 147/101 (116) 99 Mechanical Ventilator 30.00 02/12/20 21:00 67 14 142/101 (115) 99 Mechanical Ventilator 30.00 02/12/20 20:00 98 Mechanical Ventilator 30 02/12/20 20:00 36.4 02/12/20 20:00 68 14 136/99 (111) 99 Mechanical Ventilator 30.00 02/12/20 19:32 68 134/97 02/12/20 19:30 36.4 02/12/20 19:10 69 129/96 02/12/20 19:00 70 02/12/20 19:00 69 14 129/96 (107) 99 Mechanical Ventilator 30.00 02/12/20 18:44 70 14 100 40 02/12/20 18:00 68 14 127/89 (102) 100 Mechanical Ventilator 40.00 02/12/20 17:00 69 14 127/88 (101) 100 Mechanical Ventilator 40.00 02/12/20 16:43 98 Mechanical Ventilator 40 02/12/20 16:00 73 14 123/82 (96) 99 Mechanical Ventilator 40.00 02/12/20 15:54 73 14 99 40 02/12/20 15:12 36.7 02/12/20 15:00 101 14 123/71 (88) 99 Mechanical Ventilator 40.00 02/12/20 14:30 73 121/78 02/12/20 14:00 98 14 109/72 (84) 96 Mechanical Ventilator 40.00 02/12/20 13:40 Mechanical Ventilator 02/12/20 13:40 36.3 20 170/68 (102) 94 Mechanical Ventilator 02/12/20 13:30 20 171/80 (110) 97 Mechanical Ventilator 02/12/20 13:30 Mechanical Ventilator 02/12/20 13:20 21 124/74 (91) 97 Mechanical Ventilator 02/12/20 13:15 Mechanical Ventilator 02/12/20 13:10 22 138/78 (98) 95 Mechanical Ventilator 02/12/20 13:00 125 14 138/73 (94) 89 Mechanical Ventilator 40.00 02/12/20 13:00 Mechanical Ventilator 02/12/20 13:00 24 146/80 (102) 92 Mechanical Ventilator 02/12/20 12:50 26 146/78 (100) 94 Mechanical Ventilator 02/12/20 12:45 102 14 146/78 (100) 99 Mechanical Ventilator 50.00 02/12/20 12:44 103 02/12/20 12:42 36.3 26 119/68 (85) 92 Mechanical Ventilator 02/12/20 12:42 Mechanical Ventilator 02/12/20 12:40 77 16 98 100 02/12/20 11:27 35.9 75 20 122/74 (90) 99 Room Air 02/12/20 08:35 36.2 94 20 144/88 (106) 96 Room Air 02/12/20 08:00 98 Room Air I & O 02/13/20 07:00 Intake Total 0 ml Output Total 3075 ml Balance -3075 ml Height & Weight Height: 6'1.00" Weight: 290lbs. oz. 131.790696en; 46.11 BMI Method:Stated General Appearance: No Apparent Distress, Obese HEENT: PERRL/EOMI, Pharynx Normal Neck: Normal Inspection, Supple Respiratory: Lungs Clear, Normal Breath Sounds, No Respiratory Distress Cardiovascular: Regular Rate, Rhythm, No Edema, No Murmur Capillary Refill: Less Than 3 Seconds Gastrointestinal: non tender, soft Extremity: Normal Inspection, Non Tender, No Pedal Edema Neurologic/Psychiatric: Alert, Oriented x3, No Motor/Sensory Deficits, Normal Mood/Affect Skin: Normal Color, Warm/Dry Results Lab Laboratory Tests 02/12/20 06:07 02/13/20 03:15 Assessment/Plan Assessment/Plan Acute respiratory failure -D/C sedation and extubate Scrotum Cellulitis s/p I&D with MRSA -Continue Vancomycin Type II diabetes mellitus with hyperglycemia Sliding scale insulin Hemoglobin A1c 7.7% Morbid obesity BMI 46 Tobacco abuse FAISAL BATISTA DO February 13, 2020 06:36
[2020-02-13] MEDS: ENOXAPARIN 40 MG/0.4 ML (LOVENOX) SYR SC SCH ×2 (07:35→21:42)
[2020-02-13] MEDS: NICOTINE 14 MG (NICODERM) PATCH TD SCH (07:35)
[2020-02-13] MEDS: PANTOPRAZOLE 40 MG (PROTONIX) VIAL IV SCH (07:35)
[2020-02-13] MEDS: NICOTINE PATCH REMOVAL TP SCH (07:36)
[2020-02-13] MEDS: LACTATED RINGERS 1,000 ML IV SCH ×2 (07:36→21:42)
[2020-02-13] MEDS: DOCUSATE SODIUM 100 MG (COLACE) CAP PO SCH ×2 (07:39→21:41)
[2020-02-13] MEDS: SENNOSIDES 8.6 MG (SENOKOT) TAB PO SCH ×2 (07:39→21:41)
--- NOTE | 2020-02-13 08:08 | Diagnostic Imaging Report ---
INDICATION: Dyspnea. COMPARISON: 02/12/2020 FINDINGS: Single frontal radiographic view of the chest was obtained and demonstrates indwelling endotracheal tube just above the clavicular heads. Gastric tube tip terminates within the stomach. Lungs show low inspiratory volumes, but overall show interval improved aeration. There is minimal residual platelike atelectasis in the left base. No large effusion or pneumothorax is seen. Cardiac silhouette and pulmonary vasculature are also significantly improved. Osseous structures show no gross acute abnormalities. IMPRESSION: 1. Lines and tubes as above. 2. Overall, significant improved appearance of the chest. Dictated by: Dictated on workstation # [id number]
--- NOTE | 2020-02-13 09:39 | NUR ---
EXTUBATION TIMELINE: 0820: ALL SEDATION TURNED OFF. 0850: PT FOLLOWING ALL COMMANDS. 0905: RT IN ROOM TO EXTUBATE. 0908: PT SUCTIONED THROUGH ET TUBE AND MOUTH. 0910: PT EXTUBATED AND RESTRAINTS DISCONTINUED. 09: PT HANDLING EXTUBATION WELL, ON VAPOTHERM AT 30L, 60%.
[2020-02-13] MEDS: MUPIROCIN 2% OINT 22 GM (BACTROBAN) TUBE TOP SCH ×2 (09:59→21:43)
[2020-02-13] MEDS: fentaNYL INJECTION 100 MCG/2 ML AMP IV PRN ×2 (10:12→22:06)
--- NOTE | 2020-02-13 10:47 | Anesthesia-General Post-Op ---
General Post Op Complications Complications None Follow Up Care/Instructions Patient Instructions None needed. Anesthesia/Patient Condition Patient Condition Patient is doing well, stable vital signs. He was extubated recently and is sitting upright in bed on his phone. No anesthesia complaints. SANDRA BROOKS CRNA February 13, 2020 10:47
--- NOTE | 2020-02-13 11:11 | Progress Note - Hospitalist ---
Subjective HPI/CC On Admission Date Seen by Provider: February 13, 2020 Time Seen by Provider: 09:25 Silvestre Crisostomo is a 35-year-old male with past medical history of obesity and tobacco abuse who presented with scrotal pain and swelling. He reports that a few days ago he noticed something that appeared to be an ingrown hair. He says that there was pus coming out of it. He considered lancing it himself but did not. He was urged to seek medical care by his friends. He denies any fevers or chills. He denies any nausea or vomiting. He denies any chest pain or shortness of breath. He denies any abdominal pain. He is a current every day tobacco user. He was found to have elevated blood sugars but had not been diagnosed with diabetes. Subjective/Events-last exam He was extubated this morning. He is requesting to go to fourth floor because he wants "Prudence" to take care of him. He is also wanting to call his . He reports pain in his scrotum. He denies any other pain. He denies any chest pain or shortness of breath. He denies any fevers or chills. He denies any nausea or vomiting. Focused Exam Lactate Level 02/10/20 15:43: Lactic Acid Level 1.91 Objective Exam Vital Signs Vital Signs Date Time Temp Pulse Resp B/P (MAP) Pulse Ox O2 Delivery O2 Flow Rate FiO2 02/13/20 10:11 95 Vapotherm 25.00 50 02/13/20 10:00 71 24 134/81 (98) 02/13/20 07:10 37.1 Capillary Refill : Less Than 3 SecondsLess Than 3 Seconds General Appearance: No Apparent Distress, Obese HEENT: PERRL/EOMI, Pharynx Normal Neck: Normal Inspection, Supple Respiratory: Lungs Clear, Normal Breath Sounds, No Respiratory Distress Cardiovascular: Regular Rate, Rhythm, No Edema, No Murmur Gastrointestinal: Normal Bowel Sounds, Non Tender, Soft Genital/Rectal: Other (Dressing in place on scrotal abscess) Extremity: Normal Inspection, Non Tender, No Pedal Edema Neurologic/Psychiatric: Alert, No Motor/Sensory Deficits, Normal Mood/Affect, Disoriented Results/Procedures Lab Laboratory Tests 02/13/20 03:15 Patient resulted labs reviewed. Imaging: Reviewed Imaging Report Assessment/Plan Assessment and Plan Assess & Plan/Chief Complaint Scrotal abscess Surgery consulted, appreciate assistance Underwent I&D 02/11 Culture growing MRSA Continue vancomycin Acute hypoxic respiratory failure Extubated this morning 02/12 Type II diabetes mellitus with hyperglycemia Sliding scale insulin Hemoglobin A1c 7.7% Needs to be started on metformin on discharge Morbid obesity BMI 46, clinically significant, no acute management needs Tobacco abuse Nicotine patch ordered DVT prophylaxis: Lovenox Diagnosis/Problems Diagnosis/Problems (1) Cellulitis of scrotum Status: Acute (2) Type II diabetes mellitus Status: Acute Qualifiers: 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
--- NOTE | 2020-02-13 13:10 | NUR ---
REC'D PER BED FROM ICU. SEE ASSESSMENT.
--- NOTE | 2020-02-13 14:05 | NUR ---
OXYIR 10 PO FOR SCROTAL PAIN.
--- NOTE | 2020-02-13 15:44 | Progress Note - Surgery ---
Subjective Date Seen by a Provider: February 13, 2020 Time Seen by a Provider: 11:29 Subjective/Events-last exam Patient extubated this morning. Patient states left scrotum is wire drawing machine tender. Minimal drainage. Wanting Vapotherm off. WBC down. Denies nausea vomiting fever sweats chills shortness of breath or chest pain. Focused Exam Lactate Level 02/10/20 15:43: Lactic Acid Level 1.91 Objective Exam Vital Signs Date Time Temp Pulse Resp B/P (MAP) Pulse Ox O2 Delivery O2 Flow Rate FiO2 02/13/20 12:50 92 High Flow N/C 4.00 02/13/20 12:44 76 02/13/20 12:00 70 22 127/85 (99) 94 High Flow N/C 4.00 02/13/20 12:00 96 High Flow N/C 4.00 02/13/20 11:56 High Flow N/C 4.00 02/13/20 11:15 36.6 02/13/20 11:00 71 23 137/80 (99) 92 Vapotherm 25.00 40.00 02/13/20 10:11 95 Vapotherm 25.00 50 02/13/20 10:00 71 24 134/81 (98) 95 Vapotherm 25.00 40.00 02/13/20 09:00 71 23 140/86 (104) 92 Vapotherm 30.00 60.00 02/13/20 08:00 73 14 147/98 (114) 97 Mechanical Ventilator 21.00 02/13/20 08:00 98 Mechanical Ventilator 25 02/13/20 07:10 37.1 02/13/20 07:00 69 02/13/20 07:00 68 14 147/103 (118) 97 Mechanical Ventilator 21.00 02/13/20 06:26 Mechanical Ventilator 21.00 02/13/20 06:19 70 15 98 25 02/13/20 06:16 64 145/101 02/13/20 06:00 67 14 145/101 (116) 98 Mechanical Ventilator 25.00 02/13/20 05:00 67 13 142/99 (113) 98 Mechanical Ventilator 25.00 02/13/20 04:00 37.4 02/13/20 04:00 68 14 138/95 (109) 98 Mechanical Ventilator 25.00 02/13/20 04:00 98 Mechanical Ventilator 25 02/13/20 03:37 68 137/94 02/13/20 03:37 68 137/94 02/13/20 03:00 67 14 137/94 (108) 99 Mechanical Ventilator 25.00 02/13/20 02:30 Mechanical Ventilator 25.00 02/13/20 02:26 63 14 99 30 02/13/20 02:00 66 13 134/93 (107) 100 Mechanical Ventilator 30.00 02/13/20 01:11 64 132/91 02/13/20 01:00 65 13 132/91 (105) 100 Mechanical Ventilator 30.00 02/13/20 01:00 65 02/13/20 00:00 37.1 02/13/20 00:00 98 Mechanical Ventilator 30 02/13/20 00:00 66 13 132/94 (107) 99 Mechanical Ventilator 30.00 02/12/20 23:00 66 13 146/103 (117) 99 Mechanical Ventilator 30.00 02/12/20 23:00 66 144/104 02/12/20 22:22 66 14 99 40 02/12/20 22:12 67 142/103 02/12/20 22:00 67 13 147/101 (116) 99 Mechanical Ventilator 30.00 02/12/20 21:00 67 14 142/101 (115) 99 Mechanical Ventilator 30.00 02/12/20 20:00 98 Mechanical Ventilator 30 02/12/20 20:00 36.4 02/12/20 20:00 68 14 136/99 (111) 99 Mechanical Ventilator 30.00 02/12/20 19:32 68 134/97 02/12/20 19:30 36.4 02/12/20 19:10 69 129/96 02/12/20 19:00 70 02/12/20 19:00 69 14 129/96 (107) 99 Mechanical Ventilator 30.00 02/12/20 18:44 70 14 100 40 02/12/20 18:00 68 14 127/89 (102) 100 Mechanical Ventilator 40.00 02/12/20 17:00 69 14 127/88 (101) 100 Mechanical Ventilator 40.00 02/12/20 16:43 98 Mechanical Ventilator 40 02/12/20 16:00 73 14 123/82 (96) 99 Mechanical Ventilator 40.00 02/12/20 15:54 73 14 99 40 I & O 02/13/20 07:00 Intake Total 0 ml Output Total 3075 ml Balance -3075 ml Capillary Refill : Less Than 3 SecondsLess Than 3 Seconds General Appearance: No Apparent Distress, Obese HEENT: PERRL/EOMI, Pharynx Normal Neck: Normal Inspection, Supple Respiratory: Chest Non Tender, No Accessory Muscle Use, No Respiratory Distress Cardiovascular: Regular Rate, Rhythm Gastrointestinal: non tender, soft Extremity: Normal Inspection, Non Tender, No Pedal Edema Neurologic/Psychiatric: Alert, No Motor/Sensory Deficits, Normal Mood/Affect, Disoriented Skin: Normal Color, Warm/Dry Other comments Left side of scrotum open some minimal erythema and indurated surrounding wound Results Lab Laboratory Tests 02/12/20 17:05: Vancomycin Level Trough 11.8 02/12/20 17:50: Glucometer 247H 02/12/20 23:48: Glucometer 209H 02/13/20 03:15: White Blood Count 9.9, Red Blood Count 4.39, Hemoglobin 13.4, Hematocrit 39L, Mean Corpuscular Volume 88, Mean Corpuscular Hemoglobin 31, Mean Corpuscular Hemoglobin Concent 35, Red Cell Distribution Width 13.0, Platelet Count 358, Mean Platelet Volume 10.5H, Neutrophils (%) (Auto) 69, Lymphocytes (%) (Auto) 19, Monocytes (%) (Auto) 10, Eosinophils (%) (Auto) 2, Basophils (%) (Auto) 0, Neutrophils # (Auto) 6.8, Lymphocytes # (Auto) 1.9, Monocytes # (Auto) 1.0, Eosinophils # (Auto) 0.2, Basophils # (Auto) 0.0, Blood Gas Puncture Site RIGHT RADIAL, Blood Gas Patient Temperature 37.4, Arterial Blood pH 7.38, Arterial Blood Partial Pressure CO2 44, Arterial Blood Partial Pressure O2 70L, Arterial Blood HCO3 25, Arterial Blood Total CO2 26.5, Arterial Blood Oxygen Saturation 94, Arterial Blood Base Excess 0.8, Chuck Test YES-POS, Blood Gas Ventilator Setting YES, Blood Gas Inspired Oxygen 25%, Sodium Level 139, Potassium Level 4.3, Chloride Level 107, Carbon Dioxide Level 22, Anion Gap 10, Blood Urea Nitrogen 12, Creatinine 0.90, Estimat Glomerular Filtration Rate > 60, BUN/Creatinine Ratio 13, Glucose Level 205H, Calcium Level 8.8, Corrected Calcium 9.0, Phosphorus Level 2.8, Magnesium Level 2.1, Total Bilirubin 0.4, Aspartate Amino Transf (AST/SGOT) 22, Alanine Aminotransferase (ALT/SGPT) 31, Alkaline Phosphatase 52, Total Protein 7.2, Albumin 3.7, Triglycerides Level 229H 02/13/20 11:16: Glucometer 125H Microbiology 02/12/20 Gram Stain - Final, Resulted 02/12/20 Anaerobic Culture, Resulted Pending 02/12/20 Surgical Culture - Preliminary, Resulted Staphylococcus aureus 02/12/20 MRSA Screen - Final, Complete MRSA not isolated 02/10/20 Blood Culture - Preliminary, Resulted No growth Assessment/Plan Assessment/Plan Assessment/Plan Left scrotal abscess status post debridement MRSA infection Respiratory failure extubated today Continue with local wound care Continue antibiotics Okay to transfer to floor from surgical standpoint. Continue to monitor for any worsening symptoms. Clinical Quality Measures DVT/VTE Risk/Contraindication: Risk Factor Score Per Nursin RFS Level Per Nursing on Admit: 3=High CELSO NOONAN DO February 13, 2020 15:44
--- NOTE | 2020-02-13 22:00 | NUR ---
pt advised this rn that he wants his password changed to: David & is requesting that no information be given to his sister.
[2020-02-14 00:01] VITALS: BP 143/90
[2020-02-14] MEDS: LACTATED RINGERS 1,000 ML IV SCH ×2 (02:08→17:46)
[2020-02-14] MEDS: fentaNYL INJECTION 100 MCG/2 ML AMP IV PRN ×7 (02:22→23:05)
[2020-02-14 04:00] VITALS: BP 156/94
[2020-02-14 04:47] LABS: BASOPHILS % (AUTO) 0 % (0-10); EOSINOPHILS % (AUTO) 0 % (0-10); HEMATOCRIT 36 % (40-54); HEMOGLOBIN 12.6 G/DL (13.3-17.7); LYMPHOCYTES # (AUTO) 2.1 X 10^3 (1.0-4.0); LYMPHOCYTES % (AUTO) 14 % (12-44); MEAN CORPUSCULAR HEMOGLOBIN 30 PG (25-34); MEAN CORPUSCULAR HGB CONC 36 G/DL (32-36); MEAN CORPUSCULAR VOLUME 86 FL (80-99); MONOCYTES # (AUTO) 1.6 X 10^3 (0.0-1.0); MONOCYTES % (AUTO) 10 % (0-12); NEUTROPHILS # (AUTO) 11.7 X 10^3 (1.8-7.8); NEUTROPHILS % (AUTO) 76 % (42-75); PLATELET COUNT 310 10^3/uL (130-400); RED CELL DISTRIBUTION WIDTH 12.3 % (10.0-14.5); WHITE BLOOD COUNT 15.4 10^3/uL (4.3-11.0)
[2020-02-14] MEDS ORDERED: TROUGH ORDER-PHARMACY XX NR (05:00)
[2020-02-14 05:02] LABS: BAND NEUTROPHILS 3 %; NEUTROPHILS % (MANUAL) 73 %
[2020-02-14 05:03] LABS: EOSINOPHILS % (MANUAL) 1 %; LYMPHOCYTES % (MANUAL) 11 %; MONOCYTES % (MANUAL) 12 %; RBC MORPH NORMAL
[2020-02-14 05:10] LABS: VANCOMYCIN,TROUGH 13.5 UG/ML (10.0-20.0)
[2020-02-14 05:11] LABS: ALANINE AMINOTRANSFERASE 23 U/L (0-55); ALBUMIN 3.5 GM/DL (3.2-4.5); ALKALINE PHOSPHATASE 48 U/L (40-136); BUN/CREATININE RATIO 12; CALCIUM 8.6 MG/DL (8.5-10.1); CARBON DIOXIDE 21 MMOL/L (21-32); CHLORIDE 105 MMOL/L (98-107); CREATININE SERUM 0.81 MG/DL (0.60-1.30); GFR ESTIMATED > 60; GLUCOSE 125 MG/DL (70-105); MAGNESIUM 1.8 MG/DL (1.6-2.4); PHOSPHORUS 4.2 MG/DL (2.3-4.7); POTASSIUM 3.6 MMOL/L (3.6-5.0); SODIUM 138 MMOL/L (135-145); TOTAL PROTEIN 6.9 GM/DL (6.4-8.2)
[2020-02-14] MEDS: inSUlin ASPART (NovoLOG) 1 UNIT/0.01 ML (CHARGE PER UNIT) SQ SCH ×4 (05:46→20:17)
[2020-02-14] MEDS: VANCOMYCIN INJECTION 2,250 MG in NS IV 500 ML 500 ML IV SCH (06:30)
[2020-02-14] MEDS: CATHETER FLUSH 10 ML SYR IV SCH ×3 (06:31→20:10)
[2020-02-14 08:02] VITALS: BP 143/75
[2020-02-14] MEDS: DOCUSATE SODIUM 100 MG (COLACE) CAP PO SCH ×4 (08:15→20:20)
[2020-02-14] MEDS: PANTOPRAZOLE 40 MG (PROTONIX) VIAL IV SCH (08:15)
[2020-02-14] MEDS: SENNOSIDES 8.6 MG (SENOKOT) TAB PO SCH ×4 (08:15→20:20)
[2020-02-14] MEDS: NICOTINE 14 MG (NICODERM) PATCH TD SCH ×2 (08:16→08:22)
[2020-02-14] MEDS: ENOXAPARIN 40 MG/0.4 ML (LOVENOX) SYR SC SCH ×2 (08:16→20:10)
[2020-02-14] MEDS: NICOTINE PATCH REMOVAL TP SCH (08:16)
[2020-02-14] MEDS: MUPIROCIN 2% OINT 22 GM (BACTROBAN) TUBE TOP SCH ×2 (08:17→20:18)
[2020-02-14] MEDS: IBUPROFEN 600 MG (MOTRIN) TAB PO PRN (08:29)
--- NOTE | 2020-02-14 08:40 | Diagnostic Imaging Report ---
Indication: Shortness of breath. Comparison: 02/13/2020. Findings: Single view of the chest demonstrates minimal cardiac enlargement without pulmonary edema. There is questionable developing infiltrate in the right upper lobe. There is no pneumothorax or effusion. Osseous structures are age-appropriate. Impression: Questionable developing infiltrate right upper lobe. Followup recommended. Dictated by: Dictated on workstation # [id number]
--- NOTE | 2020-02-14 10:45 | NUR ---
WOUND CARE PROVIDED PER DR'S ORDERS. PAIN MEDICATION GIVEN FIRST
[2020-02-14 11:50] VITALS: BP 139/74
--- NOTE | 2020-02-14 13:01 | Progress Note - Hospitalist ---
Subjective HPI/CC On Admission Date Seen by Provider: February 14, 2020 Time Seen by Provider: 09:25 Silvestre Crisostomo is a 35-year-old male with past medical history of obesity and tobacco abuse who presented with scrotal pain and swelling. He reports that a few days ago he noticed something that appeared to be an ingrown hair. He says that there was pus coming out of it. He considered lancing it himself but did not. He was urged to seek medical care by his friends. He denies any fevers or chills. He denies any nausea or vomiting. He denies any chest pain or shortness of breath. He denies any abdominal pain. He is a current every day tobacco user. He was found to have elevated blood sugars but had not been diagnosed with diabetes. Subjective/Events-last exam he reports feeling better. He has no new complaints or concerns. He denies any fevers or chills. He denies any chest pain or palpitations. He denies any shortness of breath or cough. He denies any abdominal pain, nausea, or vomiting. Objective Exam Vital Signs Vital Signs Date Time Temp Pulse Resp B/P (MAP) Pulse Ox O2 Delivery O2 Flow Rate FiO2 02/14/20 11:50 36.6 90 20 139/74 (95) 98 Room Air 02/13/20 12:50 4.00 02/13/20 10:11 50 Capillary Refill : Less Than 3 SecondsLess Than 3 Seconds General Appearance: No Apparent Distress, Obese Neck: Normal Inspection, Supple Respiratory: Lungs Clear, Normal Breath Sounds, No Respiratory Distress Cardiovascular: Regular Rate, Rhythm, No Murmur Gastrointestinal: Normal Bowel Sounds, Non Tender, Soft Genital/Rectal: Other (dressing in place on scrotum) Extremity: Normal Inspection, Non Tender, Pedal Edema Neurologic/Psychiatric: Alert, Oriented x3, No Motor/Sensory Deficits, Normal Mood/Affect Skin: Normal Color, Warm/Dry Results/Procedures Lab Laboratory Tests 02/14/20 04:40 Patient resulted labs reviewed. Imaging: Reviewed Imaging Report Assessment/Plan Assessment and Plan Assess & Plan/Chief Complaint Scrotal abscess Surgery consulted, appreciate assistance Underwent I&D 02/11 Culture growing MRSA Continue vancomycin Leukocytosis WBC elevated today Chest x-ray reported as concerning for developing right upper lobe infiltrate No shortness of breath, cough, or fever Continue to monitor Acute hypoxic respiratory failure Extubated this morning 02/12 Type II diabetes mellitus with hyperglycemia Sliding scale insulin Hemoglobin A1c 7.7% Needs to be started on metformin on discharge Morbid obesity BMI 46, clinically significant, no acute management needs Tobacco abuse Nicotine patch ordered DVT prophylaxis: Lovenox Diagnosis/Problems Diagnosis/Problems (1) Scrotal abscess Status: Acute (2) Type II diabetes mellitus Status: Acute Qualifiers: Diabetes mellitus superintendent container terminal insulin use: without m[facility]p use Diabetes mellitus complication status: with hyperglycemia Qualified Codes: E11.65 - Type 2 diabetes mellitus with hyperglycemia (3) Morbid obesity with BMI of 45.0-49.9, adult Status: Chronic (4) Tobacco abuse Status: Chronic Clinical Quality Measures DVT/VTE Risk/Contraindication: Risk Factor Score Per Nursin RFS Level Per Nursing on Admit: 3=High ROSCOE CONNER MD February 14, 2020 13:01
--- NOTE | 2020-02-14 15:08 | Progress Note - Surgery ---
Subjective Date Seen by a Provider: February 14, 2020 Time Seen by a Provider: 10:39 Subjective/Events-last exam Patient wbc up. Wanting to go home. reaming machine tender in scrotum. Denies n/v fever sweats chills shortness of breath or chest pain. Objective Exam Vital Signs Date Time Temp Pulse Resp B/P (MAP) Pulse Ox O2 Delivery O2 Flow Rate FiO2 02/14/20 11:50 36.6 90 20 139/74 (95) 98 Room Air 02/14/20 09:00 95 Room Air 02/14/20 08:02 36.6 90 20 143/75 (97) 95 Room Air 02/14/20 04:00 37.2 96 20 156/94 (114) 92 Room Air 02/14/20 00:01 37.0 108 18 143/90 (107) 94 Room Air 02/13/20 20:50 Room Air 02/13/20 20:00 36.4 101 16 156/76 (102) 94 Room Air 02/13/20 16:00 37.5 87 14 165/77 (106) 91 Room Air I & O 02/14/20 07:00 Intake Total 7080.0 ml Output Total 4725 ml Balance 2355.0 ml Capillary Refill : Less Than 3 SecondsLess Than 3 Seconds General Appearance: No Apparent Distress, Obese HEENT: PERRL/EOMI, Pharynx Normal Neck: Normal Inspection, Supple Respiratory: Lungs Clear, Normal Breath Sounds, No Respiratory Distress Cardiovascular: Regular Rate, Rhythm, No Murmur Gastrointestinal: non tender, soft Extremity: Normal Inspection, Non Tender, Pedal Edema Neurologic/Psychiatric: Alert, Oriented x3, No Motor/Sensory Deficits, Normal Mood/Affect, Other (scrotum inflammed and indurated, no fluctuance open wound left side) Skin: Warm/Dry Results Lab Laboratory Tests 02/13/20 16:59: Glucometer 122H 02/13/20 20:55: Glucometer 91 02/14/20 04:40: White Blood Count 15.4H, Red Blood Count 4.15L, Hemoglobin 12.6L, Hematocrit 36L , Mean Corpuscular Volume 86, Mean Corpuscular Hemoglobin 30, Mean Corpuscular Hemoglobin Concent 36, Red Cell Distribution Width 12.3, Platelet Count 310, Mean Platelet Volume 10.0, Neutrophils (%) (Auto) 76H, Lymphocytes (%) (Auto) 14, Monocytes (%) (Auto) 10, Eosinophils (%) (Auto) 0, Basophils (%) (Auto) 0, Neutrophils # (Auto) 11.7H, Lymphocytes # (Auto) 2.1, Monocytes # (Auto) 1.6H, Eosinophils # (Auto) 0.0, Basophils # (Auto) 0.0, Neutrophils % (Manual) 73, Lymphocytes % (Manual) 11, Monocytes % (Manual) 12, Eosinophils % (Manual) 1, Band Neutrophils 3, Blood Morphology Comment NORMAL, Sodium Level 138, Potassium Level 3.6, Chloride Level 105, Carbon Dioxide Level 21, Anion Gap 12, Blood Urea Nitrogen 10, Creatinine 0.81, Estimat Glomerular Filtration Rate > 60, BUN/Creatinine Ratio 12, Glucose Level 125H, Calcium Level 8.6, Corrected Calcium 9.0, Phosphorus Level 4.2, Magnesium Level 1.8, Total Bilirubin 1.0, Aspartate Amino Transf (AST/SGOT) 22, Alanine Aminotransferase (ALT/SGPT) 23, Alkaline Phosphatase 48, Total Protein 6.9, Albumin 3.5, Vancomycin Level Trough 13.5 02/14/20 05:25: Glucometer 134H 02/14/20 11:00: Glucometer 202H Microbiology 02/12/20 Gram Stain - Final, Resulted 02/12/20 Anaerobic Culture, Resulted Pending 02/12/20 Surgical Culture - Preliminary, Resulted Staphylococcus aureus 02/12/20 MRSA Screen - Final, Complete MRSA not isolated 02/10/20 Blood Culture - Preliminary, Resulted No growth Assessment/Plan Assessment/Plan Assessment/Plan Left scrotal abscess status post debridement MRSA infection Respiratory failure extubated Continue with local wound care irrigated and packed Continue antibiotics Continue to monitor for any worsening symptoms. Clinical Quality Measures DVT/VTE Risk/Contraindication: Risk Factor Score Per Nursin RFS Level Per Nursing on Admit: 3=CELSO De Jesus DO February 14, 2020 15:08
[2020-02-14 16:00] VITALS: BP 169/86
[2020-02-14] MEDS: VANCOMYCIN INJECTION 2,500 MG in NS IV 500 ML 500 ML IV SCH (17:45)
[2020-02-15 00:05] VITALS: BP 186/87
[2020-02-15] MEDS: fentaNYL INJECTION 100 MCG/2 ML AMP IV PRN ×5 (00:41→21:13)
[2020-02-15 04:35] VITALS: BP 172/88
[2020-02-15 05:32] LABS: BASOPHILS % (AUTO) 0 % (0-10); EOSINOPHILS # (AUTO) 0.2 10^3/uL (0.0-0.3); EOSINOPHILS % (AUTO) 2 % (0-10); HEMATOCRIT 34 % (40-54); LYMPHOCYTES # (AUTO) 2.1 X 10^3 (1.0-4.0); LYMPHOCYTES % (AUTO) 17 % (12-44); MEAN CORPUSCULAR HEMOGLOBIN 30 PG (25-34); MEAN CORPUSCULAR HGB CONC 35 G/DL (32-36); MEAN CORPUSCULAR VOLUME 86 FL (80-99); MEAN PLATELET VOLUME 9.9 FL (7.4-10.4); MONOCYTES # (AUTO) 1.4 X 10^3 (0.0-1.0); MONOCYTES % (AUTO) 11 % (0-12); NEUTROPHILS # (AUTO) 8.4 X 10^3 (1.8-7.8); NEUTROPHILS % (AUTO) 69 % (42-75); PLATELET COUNT 297 10^3/uL (130-400); RED CELL DISTRIBUTION WIDTH 12.7 % (10.0-14.5); WHITE BLOOD COUNT 12.1 10^3/uL (4.3-11.0)
[2020-02-15 05:44] LABS: ALBUMIN 3.4 GM/DL (3.2-4.5); CHLORIDE 106 MMOL/L (98-107); POTASSIUM 3.3 MMOL/L (3.6-5.0); SODIUM 137 MMOL/L (135-145)
[2020-02-15 05:46] LABS: CALCIUM 8.3 MG/DL (8.5-10.1)
[2020-02-15 05:47] LABS: GLUCOSE 189 MG/DL (70-105); TOTAL PROTEIN 6.7 GM/DL (6.4-8.2)
[2020-02-15 05:48] LABS: BILIRUBIN,TOTAL 0.6 MG/DL (0.1-1.0); CARBON DIOXIDE 23 MMOL/L (21-32)
[2020-02-15 05:50] LABS: ALKALINE PHOSPHATASE 49 U/L (40-136); CREATININE SERUM 0.82 MG/DL (0.60-1.30); GFR ESTIMATED > 60; PHOSPHORUS 3.2 MG/DL (2.3-4.7)
[2020-02-15 05:51] LABS: BUN/CREATININE RATIO 11
[2020-02-15 05:53] LABS: ALANINE AMINOTRANSFERASE 19 U/L (0-55); MAGNESIUM 1.9 MG/DL (1.6-2.4)
[2020-02-15] MEDS: CATHETER FLUSH 10 ML SYR IV SCH ×3 (06:32→21:14)
[2020-02-15] MEDS: ENOXAPARIN 40 MG/0.4 ML (LOVENOX) SYR SC SCH ×2 (06:33→19:48)
[2020-02-15] MEDS: inSUlin ASPART (NovoLOG) 1 UNIT/0.01 ML (CHARGE PER UNIT) SQ SCH ×4 (06:33→21:08)
[2020-02-15] MEDS: VANCOMYCIN INJECTION 2,500 MG in NS IV 500 ML 500 ML IV SCH ×2 (06:33→17:10)
[2020-02-15 07:23] VITALS: BP 165/94
--- NOTE | 2020-02-15 08:04 | Diagnostic Imaging Report ---
EXAMINATION: Chest 1 view INDICATION: Shortness of breath. COMPARISON: 02/14/2020 FINDINGS: Examination was taken in a lordotic position. Lung volumes are small. Heart size is likely normal given the portable and kyphotic technique. Opacities projecting over the lungs are likely related to overlying soft tissues. No edema or pneumonia. No pleural effusion or pneumothorax. IMPRESSION: 1. Small volumes, otherwise clear lungs. 2. Apparent enlargement of heart is likely due to technique. Dictated by: Dictated on workstation # [id number]
[2020-02-15] MEDS: PANTOPRAZOLE 40 MG (PROTONIX) VIAL IV SCH (08:38)
[2020-02-15] MEDS: SENNOSIDES 8.6 MG (SENOKOT) TAB PO SCH ×2 (08:46→20:00)
[2020-02-15] MEDS: NICOTINE PATCH REMOVAL TP SCH (08:46)
[2020-02-15] MEDS: DOCUSATE SODIUM 100 MG (COLACE) CAP PO SCH ×2 (08:46→20:00)
[2020-02-15] MEDS: NICOTINE 14 MG (NICODERM) PATCH TD SCH (08:47)
[2020-02-15] MEDS: MUPIROCIN 2% OINT 22 GM (BACTROBAN) TUBE TOP SCH ×2 (10:25→21:13)
--- NOTE | 2020-02-15 10:45 | Progress Note - Hospitalist ---
Subjective HPI/CC On Admission Date Seen by Provider: February 15, 2020 Time Seen by Provider: 10:30 Silvestre Crisostomo is a 35-year-old male with past medical history of obesity and tobacco abuse who presented with scrotal pain and swelling. He reports that a few days ago he noticed something that appeared to be an ingrown hair. He says that there was pus coming out of it. He considered lancing it himself but did not. He was urged to seek medical care by his friends. He denies any fevers or chills. He denies any nausea or vomiting. He denies any chest pain or shortness of breath. He denies any abdominal pain. He is a current every day tobacco user. He was found to have elevated blood sugars but had not been diagnosed with diabetes. Subjective/Events-last exam Pt originally thought he could go home today but the scrotal abscess is worse Dr. Evans will evaluate him today Bowels are moving Originally had wanted to DC him on Bactrim but will need to have surgical evaluation on the area since Dr. Murillo who covered for Dr. Evans this weekend was concerned Review of Systems General: Fatigue Objective Exam Vital Signs Vital Signs Date Time Temp Pulse Resp B/P (MAP) Pulse Ox O2 Delivery O2 Flow Rate FiO2 02/15/20 16:00 37.0 83 16 175/100 (125) 98 Room Air 02/13/20 12:50 4.00 02/13/20 10:11 50 Capillary Refill : Less Than 3 SecondsLess Than 3 Seconds General Appearance: No Apparent Distress, WD/WN, Chronically ill Respiratory: Chest Non Tender, Lungs Clear, Normal Breath Sounds, No Accessory Muscle Use, No Respiratory Distress Cardiovascular: Regular Rate, Rhythm, No Edema, No Gallop, No JVD, No Murmur, Normal Peripheral Pulses Neurologic/Psychiatric: Alert, Oriented x3, No Motor/Sensory Deficits, Normal Mood/Affect Results/Procedures Lab Laboratory Tests 02/15/20 05:05 Patient resulted labs reviewed. Imaging: Reviewed Imaging Report Assessment/Plan Assessment and Plan Assess & Plan/Chief Complaint Assessment: Scrotal abscess s/p I&D 02/12/20 and in need of additional debridement per Dr Evans DM s/p VDRF Obesity Smoker Plan: IV abx Monitor closely I&D Diagnosis/Problems Diagnosis/Problems (1) Scrotal abscess Status: Acute (2) Morbid obesity with BMI of 45.0-49.9, adult Status: Chronic (3) Type II diabetes mellitus Status: Acute Qualifiers: Diabetes mellitus local company intermodal truck driver insulin use: without m[facility] use Diabetes mellitus complication status: with hyperglycemia Qualified Codes: E11.65 - Type 2 diabetes mellitus with hyperglycemia (4) Tobacco abuse Status: Chronic (5) Uncontrolled type 2 diabetes mellitus with hyperglycemia Status: Acute Clinical Quality Measures DVT/VTE Risk/Contraindication: Risk Factor Score Per Nursin RFS Level Per Nursing on Admit: 3=High FREDY PRESTON DO February 15, 2020 10:45
[2020-02-15 11:19] VITALS: BP 176/101
--- NOTE | 2020-02-15 12:54 | NUR ---
RD ASSESSMENT PMHx: obesity; tobacco abuse PT INTERACTION: Pt was awake and pleasant during nutrition assessment. Pt states current appetite is okay, and has been this way for a few days. Note avg PO intake 60% x1d, per chart review. Pt states following a regular diet at home, and has no issues with chewing/swallowing food. Note pt is missing some teeth, per visual assessment. Pt states no recent issues with nausea, vomiting, constipation, or diarrhea. Note last BM was 02/13, and pt currently on bowel regimen of colace BID; and senna BID, per chart review. Pt states unsure of recent wt changes other than "I know I haven't lost anything." Note recent 60# wt gain x8mon, per chart review. Note pt has presence of wound (scrotal cellulitis), per chart review. ABNORMAL NUTRITION-RELATED LAB VALUES LOW: K 3.3; Ca 8.3 HIGH: glu 189 Est. kcal needs: 9194-2932 kcal | 15-18 kcal/kg Est. Pro needs: 127-159 g Pro | 0.8-1.0 g Pro/kg PES STATEMENT: Inadequate oral intake (NI-2.1) related to loss of appetite as evidenced by pt interview | avg PO intake 60% x1d Inadequate protein intake (NI-5.6.1) related to increased protein needs as evidenced by presence of wound (scrotal cellulitis) INTERVENTION: Continue with current diet order of CHO 60g/m 1snack diet. Add Ensure HP (vary) to meals TID. Provides 160 kcal and 16 g Pro per serving for perceived benefit to wound healing. Will continue to follow and reassess as pt needs, intake, and status change. MONITOR/EVALUATE: PO Intake; Plan of Care; Hydration Status; Weight Status; Lab Values Chi Olivas, MS, RD, LD
[2020-02-15] MEDS: LACTATED RINGERS 1,000 ML IV SCH (13:45)
[2020-02-15 16:00] VITALS: BP 175/100
--- NOTE | 2020-02-15 17:18 | Progress Note ---
Subjective Date Seen by a Provider: February 15, 2020 Time Seen by a Provider: 17:00 Subjective/Events-last exam right scrotal pain. no fever/chills. scrotal edema however no fluctuance. wbc 12. Objective Exam Vital Signs Date Time Temp Pulse Resp B/P (MAP) Pulse Ox O2 Delivery O2 Flow Rate FiO2 02/15/20 11:19 36.4 76 20 176/101 (126) 97 Room Air 02/15/20 09:00 Room Air 02/15/20 07:23 36.7 80 20 165/94 (117) 98 Room Air 02/15/20 04:35 37.3 84 18 172/88 (116) 97 Room Air 02/15/20 00:05 37.3 71 20 186/87 (120) 97 Room Air 02/14/20 19:45 97 Room Air I & O 02/15/20 07:00 Intake Total 4780 ml Output Total 4350 ml Balance 430 ml Capillary Refill : Less Than 3 SecondsLess Than 3 Seconds General Appearance: No Apparent Distress HEENT: PERRL/EOMI Respiratory: Decreased Breath Sounds Cardiovascular: Regular Rate, Rhythm Gastrointestinal: normal bowel sounds, non tender, soft Extremity: Normal Capillary Refill Neurologic/Psychiatric: Alert, Oriented x3 Skin: Other (edema left scrotum, no NTSI however slight hardness inferolateral scrotum) Lymphatic: No Adenopathy Results Lab Laboratory Tests 02/14/20 20:16: Glucometer 176H 02/15/20 05:05: White Blood Count 12.1H, Red Blood Count 3.94L, Hemoglobin 12.0L, Hematocrit 34L , Mean Corpuscular Volume 86, Mean Corpuscular Hemoglobin 30, Mean Corpuscular Hemoglobin Concent 35, Red Cell Distribution Width 12.7, Platelet Count 297, Mean Platelet Volume 9.9, Neutrophils (%) (Auto) 69, Lymphocytes (%) (Auto) 17, Monocytes (%) (Auto) 11, Eosinophils (%) (Auto) 2, Basophils (%) (Auto) 0, Neutrophils # (Auto) 8.4H, Lymphocytes # (Auto) 2.1, Monocytes # (Auto) 1.4H, Eosinophils # (Auto) 0.2, Basophils # (Auto) 0.0, Sodium Level 137, Potassium Level 3.3L, Chloride Level 106, Carbon Dioxide Level 23, Anion Gap 8, Blood Urea Nitrogen 9, Creatinine 0.82, Estimat Glomerular Filtration Rate > 60, BUN/Creatinine Ratio 11, Glucose Level 189H, Calcium Level 8.3L, Corrected Calcium 8.8, Phosphorus Level 3.2, Magnesium Level 1.9, Total Bilirubin 0.6, Aspartate Amino Transf (AST/SGOT) 15, Alanine Aminotransferase (ALT/SGPT) 19, Alkaline Phosphatase 49, Total Protein 6.7, Albumin 3.4 02/15/20 11:24: Glucometer 158H 02/15/20 16:25: Glucometer 117H Microbiology 02/12/20 Gram Stain - Final, Resulted 02/12/20 Anaerobic Culture - Preliminary, Resulted No anaerobes isolated 02/12/20 Surgical Culture - Final, Resulted Staphylococcus aureus 02/12/20 MRSA Screen - Final, Complete MRSA not isolated 02/10/20 Blood Culture - Preliminary, Resulted No growth Assessment/Plan Assessment/Plan Assess & Plan/Chief Complaint left scrotal abscess/cellulitis. MRSA and on vanco. edema peristent with developing area hardness inferior to previous debridement site. will schedule further debridement. consult urology. Clinical Quality Measures DVT/VTE Risk/Contraindication: Risk Factor Score Per Nursin RFS Level Per Nursing on Admit: 3=High ROBSON HART MD February 15, 2020 17:18
[2020-02-15 20:43] VITALS: BP 163/97
[2020-02-16] VITALS (14 sets, daily range): BP systolic 113–183; BP diastolic 62–102
--- NOTE | 2020-02-16 00:15 | NUR ---
attempted to call Dr Evans over [facility] change orders not being pass on in report.
[2020-02-16] MEDS: fentaNYL INJECTION 100 MCG/2 ML AMP IV PRN ×5 (00:50→23:57)
--- NOTE | 2020-02-16 01:00 | NUR ---
discuss with pt about drsg change. pt states that packing was taken out and has been having wet gauge applied once a day after DR rounds.
[2020-02-16] MEDS: LACTATED RINGERS 1,000 ML IV SCH ×2 (04:25→16:03)
[2020-02-16] MEDS ORDERED: TROUGH ORDER-PHARMACY XX NR (05:00)
[2020-02-16 05:40] LABS: BASOPHILS % (AUTO) 0 % (0-10); EOSINOPHILS # (AUTO) 0.5 10^3/uL (0.0-0.3); EOSINOPHILS % (AUTO) 4 % (0-10); HEMATOCRIT 34 % (40-54); HEMOGLOBIN 11.8 G/DL (13.3-17.7); LYMPHOCYTES # (AUTO) 1.9 X 10^3 (1.0-4.0); LYMPHOCYTES % (AUTO) 16 % (12-44); MEAN CORPUSCULAR HEMOGLOBIN 30 PG (25-34); MEAN CORPUSCULAR HGB CONC 35 G/DL (32-36); MEAN CORPUSCULAR VOLUME 86 FL (80-99); MEAN PLATELET VOLUME 10.1 FL (7.4-10.4); MONOCYTES # (AUTO) 1.4 X 10^3 (0.0-1.0); MONOCYTES % (AUTO) 12 % (0-12); NEUTROPHILS # (AUTO) 8.1 X 10^3 (1.8-7.8); NEUTROPHILS % (AUTO) 68 % (42-75); PLATELET COUNT 313 10^3/uL (130-400); RED CELL DISTRIBUTION WIDTH 12.4 % (10.0-14.5); WHITE BLOOD COUNT 11.9 10^3/uL (4.3-11.0)
[2020-02-16] MEDS: inSUlin ASPART (NovoLOG) 1 UNIT/0.01 ML (CHARGE PER UNIT) SQ SCH ×4 (05:54→20:05)
[2020-02-16 05:57] LABS: ALANINE AMINOTRANSFERASE 19 U/L (0-55); ALBUMIN 3.4 GM/DL (3.2-4.5); ALKALINE PHOSPHATASE 45 U/L (40-136); BILIRUBIN,TOTAL 0.7 MG/DL (0.1-1.0); BUN/CREATININE RATIO 10; CALCIUM 8.7 MG/DL (8.5-10.1); CARBON DIOXIDE 22 MMOL/L (21-32); CHLORIDE 105 MMOL/L (98-107); CREATININE SERUM 0.84 MG/DL (0.60-1.30); GFR ESTIMATED > 60; GLUCOSE 124 MG/DL (70-105); MAGNESIUM 1.8 MG/DL (1.6-2.4); PHOSPHORUS 3.5 MG/DL (2.3-4.7); POTASSIUM 3.6 MMOL/L (3.6-5.0); SODIUM 138 MMOL/L (135-145)
[2020-02-16 06:03] LABS: VANCOMYCIN,TROUGH 11.4 UG/ML (10.0-20.0)
[2020-02-16] MEDS: VANCOMYCIN INJECTION 2,500 MG in NS IV 500 ML 500 ML IV SCH (06:14)
[2020-02-16] MEDS: CATHETER FLUSH 10 ML SYR IV SCH ×3 (06:14→23:17)
--- NOTE | 2020-02-16 07:01 | Progress Note - Hospitalist ---
Subjective HPI/CC On Admission Date Seen by Provider: February 16, 2020 Time Seen by Provider: 10:00 Silvestre Crisostomo is a 35-year-old male with past medical history of obesity and tobacco abuse who presented with scrotal pain and swelling. He reports that a few days ago he noticed something that appeared to be an ingrown hair. He says that there was pus coming out of it. He considered lancing it himself but did not. He was urged to seek medical care by his friends. He denies any fevers or chills. He denies any nausea or vomiting. He denies any chest pain or shortness of breath. He denies any abdominal pain. He is a current every day tobacco user. He was found to have elevated blood sugars but had not been diagnosed with diabetes. Subjective/Events-last exam Pt going back to surgery today Ultrasound evaluating the scrotal abscess again today Denies any significant changes to his pain Review of Systems General: Fatigue Objective Exam Vital Signs Vital Signs Date Time Temp Pulse Resp B/P (MAP) Pulse Ox O2 Delivery O2 Flow Rate FiO2 02/16/20 15:55 37.0 76 16 145/82 (103) 97 02/16/20 15:50 Nasal Cannula 2 02/13/20 10:11 50 Capillary Refill : Less Than 3 SecondsLess Than 3 Seconds General Appearance: No Apparent Distress, WD/WN, Chronically ill Respiratory: Chest Non Tender, Lungs Clear, Normal Breath Sounds, No Accessory Muscle Use, No Respiratory Distress Cardiovascular: Regular Rate, Rhythm, No Edema, No Gallop, No JVD, No Murmur, Normal Peripheral Pulses Results/Procedures Lab Laboratory Tests 02/16/20 05:25 Patient resulted labs reviewed. Imaging: Reviewed Imaging Report Assessment/Plan Assessment and Plan Assess & Plan/Chief Complaint Assessment: Scrotal abscess s/p I&D 02/12/20 and in need of additional debridement per Dr Evans today 02/16/20 DM s/p VDRF Obesity Smoker Plan: IV abx Monitor closely I&D today Diagnosis/Problems Diagnosis/Problems (1) Scrotal abscess Status: Acute (2) Morbid obesity with BMI of 45.0-49.9, adult Status: Chronic (3) Type II diabetes mellitus Status: Acute Qualifiers: Diabetes mellitus senior care insulin use: without senior care use Diabetes mellitus complication status: with hyperglycemia Qualified Codes: E11.65 - Type 2 diabetes mellitus with hyperglycemia (4) Tobacco abuse Status: Chronic (5) Uncontrolled type 2 diabetes mellitus with hyperglycemia Status: Acute Clinical Quality Measures DVT/VTE Risk/Contraindication: Risk Factor Score Per Nursin RFS Level Per Nursing on Admit: 3=High FREDY PRESTON DO February 16, 2020 07:01
--- NOTE | 2020-02-16 08:21 | NUR ---
VANCOMYCIN TROUGH 11.4 ON 02/15 @ 0500. CHANGED DOSE AND FREQUENCY TO 1750MG Q8H STARTING 02/15 @ 1400. VANCOMYCIN TROUGH DUE 02/16 @ 1300, IF TROUGH >20, HOLD DOSE AND NOTIFY PHARMACY FOR ADJUSTMENTS.
--- NOTE | 2020-02-16 08:48 | Diagnostic Imaging Report ---
EXAMINATION: Chest radiograph, portable AP view. DATE: 02/16/2020 4:59 AM hours. INDICATION: 35-year-old male, dyspnea. COMPARISON: February 15, 2020. FINDINGS: Stable overall appearance of the cardiomediastinal silhouette. There is no identified pneumothorax. There is no large pleural effusion. There is no identified focal airspace consolidation. There are technical limitations of the exam relating to patient body habitus and difficulties with exposure. IMPRESSION: 1. No identified acute cardiopulmonary abnormality. Dictated by: Dictated on workstation # [id number]
[2020-02-16] MEDS: PANTOPRAZOLE 40 MG (PROTONIX) TAB PO SCH (09:00)
[2020-02-16] MEDS: ENOXAPARIN 40 MG/0.4 ML (LOVENOX) SYR SC SCH ×2 (09:10→20:01)
[2020-02-16] MEDS: NICOTINE PATCH REMOVAL TP SCH (09:12)
[2020-02-16] MEDS: NICOTINE 14 MG (NICODERM) PATCH TD SCH (09:13)
[2020-02-16] MEDS: DOCUSATE SODIUM 100 MG (COLACE) CAP PO SCH ×2 (09:13→20:06)
[2020-02-16] MEDS: SENNOSIDES 8.6 MG (SENOKOT) TAB PO SCH ×2 (09:13→20:06)
[2020-02-16] MEDS: MUPIROCIN 2% OINT 22 GM (BACTROBAN) TUBE TOP SCH ×2 (09:14→23:16)
[2020-02-16] MEDS ORDERED: SEVOFLURANE (ULTANE) 15 ML INHAL SOLN ONE ×5 (10:59→14:37)
[2020-02-16] MEDS ORDERED: MIDAZOLAM 2 MG/2 ML (VERSED) VIAL ONE (10:59)
[2020-02-16] MEDS ORDERED: fentaNYL INJECTION 100 MCG/2 ML AMP ONE (10:59)
[2020-02-16] MEDS ORDERED: proPOfol 200 MG/20 ML (DIPRIVAN) VIAL IV ONE (10:59)
[2020-02-16] MEDS ORDERED: ONDANSETRON 4 MG/2 ML (SDV) Z0FRAN ONE (10:59)
[2020-02-16] MEDS ORDERED: LIDOCAINE PF 2% 5 ML (XYLOCAINE) VIAL ONE (10:59)
--- NOTE | 2020-02-16 12:53 | Diagnostic Imaging Report ---
PROCEDURE: US Scrotum. TECHNIQUE: Multiple Real-time grayscale images were obtained over the scrotum in various projections bilaterally. INDICATION: Scrotal cellulitis post I&D. COMPARISON: 02/10/2020. FINDINGS: Hypervascular scrotal edema is again demonstrated, suspicious for scrotal cellulitis. No discrete walled off or drainable fluid collection is found. Changes are most pronounced superior to the left testicle with the testicular parenchyma appearing unremarkable. Testicular perfusion is symmetric and grossly unremarkable. Small simple appearing bilateral hydroceles are present without complexity or findings of pyocele. There is no varicocele. A benign epidural head cyst on the right measuring 3 mm is incidentally noted. IMPRESSION: Redemonstration of scrotal edema. Small simple likely reactive hydroceles. Normal appearance of the testicles and epididymides. No appreciable fluid collection. The scrotal distortion, edema, inflammation, and hypervascularity are most pronounced in an area of heterogeneity superior to the left testicle. Dictated by: Dictated on workstation # [id number]
--- NOTE | 2020-02-16 14:00 | NUR ---
off floor to surgery at this time
[2020-02-16] MEDS ORDERED: LIDOCAINE/EPI 1%-1:100,000 (XYLOCAINE) 20ML ONE (14:15)
--- NOTE | 2020-02-16 14:17 | Progress Note-Pre Operative ---
Pre-Operative Progress Note H&P Reviewed The H&P was reviewed, patient examined and no changes noted. Date Seen by Provider: February 16, 2020 Time Seen by Provider: 12:00 Date H&P Reviewed: February 12, 2020 Time H&P Reviewed: 12:00 Pre-Operative Diagnosis: recurrent left scrotal abscess/necrosis ROBSON HART MD February 16, 2020 14:17
[2020-02-16] MEDS ORDERED: morphine INJ 10 MG/ML 1ML (SYR OR VIAL) ONE (14:24)
[2020-02-16] MEDS ORDERED: RT-ALBUTEROL SULF 2.5 MG/3 ML PRE-MIX VIAL ONE (14:49)
--- NOTE | 2020-02-16 14:52 | Progress Note-Post Operative ---
Post-Operative Progess Note Surgeon (s)/Draw Off Worker (s) Surgeon ROBSON HART MD Draw Off Worker: none Pre-Operative Diagnosis recurrent left scrotal abscess/necrosis Post-Operative Diagnosis same Procedure & Operative Findings Date of Procedure 02/16/20 Procedure Performed/Findings wide debridement left scrotum Anesthesia Type general LMA Estimated Blood Loss Estimated blood loss (mL): minimal Specimens/Packing Specimens Removed necrotic scrotal soft tissue. ROBSON HART MD February 16, 2020 14:52
[2020-02-16] MEDS ORDERED: RT-ALBUTEROL SULF 2.5 MG/3 ML PRE-MIX VIAL INH ONE (15:00)
[2020-02-16] MEDS ORDERED: ONDANSETRON 4 MG/2 ML (SDV) Z0FRAN IVP PRN (15:00)
[2020-02-16] MEDS ORDERED: HYDROmorphone 2 MG/ML VIAL (DILAUDID) IV ONE (15:00)
--- NOTE | 2020-02-16 15:50 | NUR ---
patient back to floor at this time. report form Ilana [employer] ARCHITECT. patient alert but sleepy requesting something to drink at this time, patient on 2L NC due to stats of 90%
--- NOTE | 2020-02-16 16:13 | NUR ---
consult request to doctor Robert Evans. Doctor Robert stated do not touch surgical dressing he would be here tomorrow evening 02/17/20 to look at wound.
[2020-02-16] MEDS: VANCOMYCIN 1,750 MG/NS 500 ML IVPB IV SCH ×4 (16:26→23:04)
--- NOTE | 2020-02-16 19:15 | OPERATIVE REPORT ---
DATE OF SERVICE: 02/16/2020 ADMITTING PHYSICIAN: Dr. Sharma. PREOPERATIVE DIAGNOSIS: Recurrent cellulitis and necrosis, left scrotum. POSTOPERATIVE DIAGNOSIS: Recurrent cellulitis and necrosis, left scrotum. PROCEDURE: Debridement left scrotum, 6 x 5 cm in size. SURGEON: Robson Hart MD. ANESTHESIA: General laryngeal mask airway. ESTIMATED BLOOD LOSS: Minimal. FINDINGS: Intact testicle necrosis and cellulitis of the surrounding skin, subcutaneous tissue, deeper layers and fascia. The area, 6.5 cm in size. DISPOSITION: The patient tolerated the procedure well. INDICATIONS: The patient is a 35-year-old male who initially presented to the Emergency Department with scrotal swelling as well as 3 areas of openings with fever, no purulent drainage. An ultrasound was performed, which did not show any abscess. We treated him medically with IV antibiotics, which did grow out MRSA. The edema, pain and surrounding skin necrosis worsened and he underwent debridement of the left scrotum on 02/12/2020. Over time he continued IV antibiotics. He continued to have swelling, redness, erythema as well as necrotic debris within the wound requiring further debridement of the left scrotum. DESCRIPTION OF PROCEDURE: The patient was brought to the operating room and stayed on his current bed due to his body habitus. After adequate IV pain and stated medications and general laryngeal mask airway intubation, the perineum was prepped and draped in standard surgical fashion. A 1% lidocaine with epinephrine was used to anesthetize overlying skin in the left scrotum. The skin incision was then extended inferiorly using a 15 blade. There was some necrotic skin as well as subcutaneous tissue, which was sharply debrided using a 15 blade. The left testicle was identified as well as the cord and its surrounding contents and spared throughout the process. All of the edematous and necrotic tissue around this area were then debrided using electrocautery as well as a 15 blade with visualization of good hemostasis. The extent of debridement was 6.5 cm in dimensions. Good hemostasis was achieved using electrocautery. The abscess cavity was then irrigated and suctioned out. The abscess cavity was then filled with 1% iodoform gauze followed by 4 x 4 gauze followed by ABD pad and then mesh shorts. The patient tolerated the procedure well. We will continue with IV antibiotics and b.i.d. dressing changes and possible wound VAC placement. Job ID: [id number] DocumentID: [id number] Dictated Date: 02/16/2020 15:01:33 Developer Automatic Date: 02/16/2020 19:14:43 Dictated By: ROBSON HART MD
[2020-02-17] MEDS: fentaNYL INJECTION 100 MCG/2 ML AMP IV PRN ×7 (02:41→22:46)
[2020-02-17 04:15] VITALS: BP 140/91
[2020-02-17] MEDS: LACTATED RINGERS 1,000 ML IV SCH ×2 (04:18→22:14)
[2020-02-17 04:48] LABS: BASOPHILS % (AUTO) 0 % (0-10); EOSINOPHILS # (AUTO) 0.3 10^3/uL (0.0-0.3); EOSINOPHILS % (AUTO) 2 % (0-10); HEMATOCRIT 35 % (40-54); HEMOGLOBIN 12.3 G/DL (13.3-17.7); LYMPHOCYTES # (AUTO) 1.2 X 10^3 (1.0-4.0); LYMPHOCYTES % (AUTO) 8 % (12-44); MEAN CORPUSCULAR HEMOGLOBIN 30 PG (25-34); MEAN CORPUSCULAR HGB CONC 35 G/DL (32-36); MEAN CORPUSCULAR VOLUME 87 FL (80-99); MEAN PLATELET VOLUME 9.9 FL (7.4-10.4); MONOCYTES # (AUTO) 1.1 X 10^3 (0.0-1.0); MONOCYTES % (AUTO) 8 % (0-12); NEUTROPHILS # (AUTO) 12.1 X 10^3 (1.8-7.8); NEUTROPHILS % (AUTO) 83 % (42-75); PLATELET COUNT 367 10^3/uL (130-400); RED CELL DISTRIBUTION WIDTH 12.3 % (10.0-14.5); WHITE BLOOD COUNT 14.7 10^3/uL (4.3-11.0)
[2020-02-17 05:09] LABS: ALBUMIN 3.8 GM/DL (3.2-4.5); CHLORIDE 101 MMOL/L (98-107); POTASSIUM 3.9 MMOL/L (3.6-5.0); SODIUM 135 MMOL/L (135-145)
[2020-02-17 05:11] LABS: CALCIUM 9.1 MG/DL (8.5-10.1)
[2020-02-17 05:12] LABS: GLUCOSE 159 MG/DL (70-105); TOTAL PROTEIN 7.9 GM/DL (6.4-8.2)
[2020-02-17 05:13] LABS: CARBON DIOXIDE 24 MMOL/L (21-32)
[2020-02-17 05:14] LABS: BILIRUBIN,TOTAL 0.8 MG/DL (0.1-1.0)
[2020-02-17 05:15] LABS: ALKALINE PHOSPHATASE 47 U/L (40-136); PHOSPHORUS 3.6 MG/DL (2.3-4.7)
[2020-02-17 05:16] LABS: CREATININE SERUM 0.88 MG/DL (0.60-1.30); GFR ESTIMATED > 60
[2020-02-17 05:17] LABS: BUN/CREATININE RATIO 8
[2020-02-17 05:18] LABS: ALANINE AMINOTRANSFERASE 23 U/L (0-55)
[2020-02-17] MEDS: inSUlin ASPART (NovoLOG) 1 UNIT/0.01 ML (CHARGE PER UNIT) SQ SCH ×4 (05:24→20:54)
[2020-02-17] MEDS: CATHETER FLUSH 10 ML SYR IV SCH ×3 (05:32→22:16)
[2020-02-17] MEDS: VANCOMYCIN 1,750 MG/NS 500 ML IVPB IV SCH ×6 (06:22→22:14)
--- NOTE | 2020-02-17 06:43 | Progress Note - Hospitalist ---
Subjective HPI/CC On Admission Date Seen by Provider: February 17, 2020 Time Seen by Provider: 09:45 Silvestre Crisostomo is a 35-year-old male with past medical history of obesity and tobacco abuse who presented with scrotal pain and swelling. He reports that a few days ago he noticed something that appeared to be an ingrown hair. He says that there was pus coming out of it. He considered lancing it himself but did not. He was urged to seek medical care by his friends. He denies any fevers or chills. He denies any nausea or vomiting. He denies any chest pain or shortness of breath. He denies any abdominal pain. He is a current every day tobacco user. He was found to have elevated blood sugars but had not been diagnosed with diabetes. Subjective/Events-last exam No real major change IV antibiotics maintained S/p I&D yesterday by Dr. Nathan Rodríguez saw him in consultation Bowels are moving her reports Lovenox maintained for DVT prophylaxis Review of Systems General: Fatigue Objective Exam Vital Signs Vital Signs Date Time Temp Pulse Resp B/P (MAP) Pulse Ox O2 Delivery O2 Flow Rate FiO2 02/17/20 15:39 37.3 92 15 163/93 (116) 96 Room Air 02/16/20 15:50 2 02/13/20 10:11 50 Capillary Refill : Less Than 3 SecondsLess Than 3 Seconds General Appearance: No Apparent Distress, WD/WN Respiratory: Chest Non Tender, Lungs Clear, Normal Breath Sounds, No Accessory Muscle Use, No Respiratory Distress Cardiovascular: Regular Rate, Rhythm, No Edema, No Gallop, No JVD, No Murmur, Normal Peripheral Pulses Results/Procedures Lab Laboratory Tests 02/17/20 04:40 Patient resulted labs reviewed. Imaging: Reviewed Imaging Report Assessment/Plan Assessment and Plan Assess & Plan/Chief Complaint Assessment: Scrotal abscess s/p I&D 02/12/20 and in need of additional debridement per Dr Evans yesterday 02/16/20 DM s/p VDRF Obesity Smoker Plan: IV abx Monitor closely I&D yesterday Diagnosis/Problems Diagnosis/Problems (1) Scrotal abscess Status: Acute (2) Morbid obesity with BMI of 45.0-49.9, adult Status: Chronic (3) Type II diabetes mellitus Status: Acute Qualifiers: Diabetes mellitus oysterman insulin use: without oysterman use Diabetes mellitus complication status: with hyperglycemia Qualified Codes: E11.65 - Type 2 diabetes mellitus with hyperglycemia (4) Tobacco abuse Status: Chronic (5) Uncontrolled type 2 diabetes mellitus with hyperglycemia Status: Acute Clinical Quality Measures DVT/VTE Risk/Contraindication: Risk Factor Score Per Nursin RFS Level Per Nursing on Admit: 3=High FREDY PRESTON DO February 17, 2020 06:43
--- NOTE | 2020-02-17 07:44 | NUR ---
patient in room yelling " just cut them off" complaining of constant pain at site of incision. upon assessment stated " its not a new pain just constant" this RN assessed area, no excessive drainage to site at this time, clean Ice pack applied to area. patient stated he would like increased pain medication because what he has isn't doing it. doctor Evans notified
[2020-02-17 08:02] VITALS: BP 155/92
--- NOTE | 2020-02-17 08:11 | Anesthesia-General Post-Op ---
General Patient Condition Mental Status/LOC: Same as Preop Cardiovascular: Satisfactory Nausea/Vomiting: Absent Respiratory: Satisfactory Pain: Controlled Complications: Absent Post Op Complications Complications None Follow Up Care/Instructions Patient Instructions None needed. Anesthesia/Patient Condition Patient Condition Patient is doing well, no complaints, stable vital signs, no apparent adverse anesthesia problems. No complications reported per nursing. ZOILA PHAM CRNA February 17, 2020 08:11
--- NOTE | 2020-02-17 08:45 | NUR ---
telephone orders in increase dose of fentanyl to 75mcg Q1
[2020-02-17] MEDS: ENOXAPARIN 40 MG/0.4 ML (LOVENOX) SYR SC SCH ×2 (09:20→20:54)
[2020-02-17] MEDS: PANTOPRAZOLE 40 MG (PROTONIX) TAB PO SCH (09:20)
[2020-02-17] MEDS: DOCUSATE SODIUM 100 MG (COLACE) CAP PO SCH ×2 (09:23→20:54)
[2020-02-17] MEDS: NICOTINE PATCH REMOVAL TP SCH (09:23)
[2020-02-17] MEDS: SENNOSIDES 8.6 MG (SENOKOT) TAB PO SCH ×2 (09:24→20:54)
[2020-02-17] MEDS: NICOTINE 14 MG (NICODERM) PATCH TD SCH (09:24)
[2020-02-17] MEDS: MUPIROCIN 2% OINT 22 GM (BACTROBAN) TUBE TOP SCH ×2 (09:25→20:55)
[2020-02-17 11:19] VITALS: BP 150/92
--- NOTE | 2020-02-17 11:45 | NUR ---
patient seen in room laughing at TV and cell phone at this time. this RN said patient must be feeling better and increased medication dose must be working. Patient stopped laughing and started shaking in pain requesting both IV and Oral pain medication at this time. IV medication only given.
[2020-02-17] MEDS ORDERED: TROUGH ORDER-PHARMACY XX NR (13:00)
--- NOTE | 2020-02-17 13:25 | Progress Note ---
Subjective Date Seen by a Provider: February 17, 2020 Time Seen by a Provider: 13:00 Subjective/Events-last exam doing ok. mild fever overnight. increase pain but expected. Objective Exam Vital Signs Date Time Temp Pulse Resp B/P (MAP) Pulse Ox O2 Delivery O2 Flow Rate FiO2 02/17/20 11:19 36.2 82 22 150/92 (111) 98 Room Air 02/17/20 09:00 Room Air 02/17/20 08:02 36.2 86 22 155/92 (113) 96 Room Air 02/17/20 04:15 36.6 83 18 140/91 (107) 94 Room Air 02/17/20 01:13 37.0 02/16/20 23:55 38.2 87 20 144/91 (108) 96 Room Air 02/16/20 20:34 37.4 94 18 157/96 (116) 97 Room Air 02/16/20 20:10 Room Air 02/16/20 15:55 37.0 76 16 145/82 (103) 97 02/16/20 15:50 36.8 18 154/88 (110) 99 Nasal Cannula 2 02/16/20 15:50 Nasal Cannula 2 02/16/20 15:40 18 150/91 (110) 99 Nasal Cannula 2 02/16/20 15:36 Nasal Cannula 2 02/16/20 15:32 Room Air 02/16/20 15:30 18 157/94 (115) 98 Room Air 02/16/20 15:20 OxyMask 6 02/16/20 15:20 18 161/93 (115) 100 OxyMask 6 02/16/20 15:10 22 119/62 (81) 100 OxyMask 6 02/16/20 15:05 OxyMask 6 02/16/20 15:00 22 163/93 (116) 100 OxyMask 6 02/16/20 14:52 36.8 24 113/78 (90) 92 OxyMask 6 02/16/20 14:52 OxyMask 6 I & O 02/17/20 07:00 Intake Total 1628 ml Output Total 4700 ml Balance -3072 ml Capillary Refill : Less Than 3 SecondsLess Than 3 Seconds General Appearance: No Apparent Distress HEENT: PERRL/EOMI Neck: Full Range of Motion Respiratory: Chest Non Tender, Decreased Breath Sounds Cardiovascular: Regular Rate, Rhythm Gastrointestinal: normal bowel sounds, non tender, soft Extremity: Normal Capillary Refill Neurologic/Psychiatric: Alert, Oriented x3 Skin: Other (left scrotal open wound intact, no new area edema,redess,necrosis) Lymphatic: No Adenopathy Results Lab Laboratory Tests 02/16/20 15:58: Glucometer 110 02/16/20 20:05: Glucometer 127H 02/17/20 04:40: White Blood Count 14.7H, Red Blood Count 4.04L, Hemoglobin 12.3L, Hematocrit 35L , Mean Corpuscular Volume 87, Mean Corpuscular Hemoglobin 30, Mean Corpuscular Hemoglobin Concent 35, Red Cell Distribution Width 12.3, Platelet Count 367, Mean Platelet Volume 9.9, Neutrophils (%) (Auto) 83H, Lymphocytes (%) (Auto) 8L, Monocytes (%) (Auto) 8, Eosinophils (%) (Auto) 2, Basophils (%) (Auto) 0, Neutrophils # (Auto) 12.1H, Lymphocytes # (Auto) 1.2, Monocytes # (Auto) 1.1H, Eosinophils # (Auto) 0.3, Basophils # (Auto) 0.0, Sodium Level 135, Potassium Level 3.9, Chloride Level 101, Carbon Dioxide Level 24, Anion Gap 10, Blood Urea Nitrogen 7, Creatinine 0.88, Estimat Glomerular Filtration Rate > 60, BUN/Creatinine Ratio 8, Glucose Level 159H, Calcium Level 9.1, Corrected Calcium 9.3, Phosphorus Level 3.6, Magnesium Level 2.0, Total Bilirubin 0.8, Aspartate Amino Transf (AST/SGOT) 20, Alanine Aminotransferase (ALT/SGPT) 23, Alkaline Phosphatase 47, Total Protein 7.9, Albumin 3.8 02/17/20 10:34: Glucometer 137H 02/17/20 13:14: Microbiology 02/12/20 Gram Stain - Final, Complete 02/12/20 Anaerobic Culture - Final, Complete No anaerobes isolated 02/12/20 Surgical Culture - Final, Complete Staphylococcus aureus 02/12/20 MRSA Screen - Final, Complete MRSA not isolated 02/10/20 Blood Culture - Final, Complete No growth Assessment/Plan Assessment/Plan Assess & Plan/Chief Complaint left scrotal abscess/cellulitis s/p debridement x2 MRSA and on vanco. consult wound care, possible vac. consult urology. Clinical Quality Measures DVT/VTE Risk/Contraindication: Risk Factor Score Per Nursin RFS Level Per Nursing on Admit: 3=High ROBSON HART MD February 17, 2020 13:25
[2020-02-17 15:39] VITALS: BP 163/93
--- NOTE | 2020-02-17 16:36 | CONSULTATION REPORT ---
DATE OF SERVICE: 02/17/2020 ATTENDING PHYSICIAN: Dr. Jael Evans MD SUMMARY: This is a 35-year-old white man with scrotal wall infection and cellulitis, who had an I and D and debridement by Dr. Evans twice, one just yesterday and two ultrasounds to rule out testicular or epididymal involvement. IMPRESSION: Scrotal wall infection with edema and cellulitis. No pathology. RECOMMENDATIONS: Continue present management. I would recommend IV antibiotic coverage for negative anaerobes as well as anaerobes. Job ID: [id number] DocumentID: [id number] Dictated Date: 02/17/2020 10:18:27 Tractor Operator Battery Date: 02/17/2020 10:28:34 Dictated By: GAMALIEL AYON MD
--- NOTE | 2020-02-17 18:00 | NUR ---
Dr Ramon here to see patient at this time. no unpacking wound per MD "unpacking is unhumane without anesthetic" continue to cover site with gauze and apply ABD pads and monitor drainage. MD will reassess patient tomorrow 02/18/20 once a plan of care is discussed with Nathan
--- NOTE | 2020-02-17 18:41 | Wound Care Assessment ---
Wound Care Assessment Date Seen by Provider: February 17, 2020 Time Seen by Provider: 15:20 Chief Complaint L scrotal incision. HPI The patient is a 35 year old male with recent scrotal infection, with persistent inflammation, swelling, and tenderness in the scrotum. I have been asked to evaluate in regards to management with Negative Pressure Wound Therapy. This wound would not be amenable to NPWT both because of its location (scrotal skin is very challenging to apply drape in such a way to achieve an adequate seal), and the current level of inflammation and tenderness. Placement and removal of the Granulofoam dressing would be exquisitely painful; it would require general anesthesia, which is impractical. One might consider re-exploration, wider opening of wound, Urological evaluation, or referral to a tertiary center. Smoking Status: Current Someday Smoker Recreational Drug Use: No Alcohol Use: Occasionally Uses Review of Systems General: Chills Pulmonary: No Dyspnea Cardiovascular: No: Chest Pain Exam Vital Signs Date Time Temp Pulse Resp B/P (MAP) Pulse Ox O2 Delivery O2 Flow Rate FiO2 02/17/20 15:39 37.3 92 15 163/93 (116) 96 Room Air 02/16/20 15:50 2 02/13/20 10:11 50 Capillary Refill : Less Than 3 SecondsLess Than 3 Seconds General Appearance: moderate distress HEENT: normal ENT inspection Cardiovascular: regular rate, rhythm Respiratory: lungs clear Skin: other (large open wound of l side of the scrotum, very edematous, tender, red. Unable to remove wound packing to assess depth of wound due to discomfort.) Results Laboratory Tests 02/16/20 20:05: Glucometer 127H 02/17/20 04:40: White Blood Count 14.7H, Red Blood Count 4.04L, Hemoglobin 12.3L, Hematocrit 35L , Mean Corpuscular Volume 87, Mean Corpuscular Hemoglobin 30, Mean Corpuscular Hemoglobin Concent 35, Red Cell Distribution Width 12.3, Platelet Count 367, Mean Platelet Volume 9.9, Neutrophils (%) (Auto) 83H, Lymphocytes (%) (Auto) 8L, Monocytes (%) (Auto) 8, Eosinophils (%) (Auto) 2, Basophils (%) (Auto) 0, Neutrophils # (Auto) 12.1H, Lymphocytes # (Auto) 1.2, Monocytes # (Auto) 1.1H, Eosinophils # (Auto) 0.3, Basophils # (Auto) 0.0, Sodium Level 135, Potassium Level 3.9, Chloride Level 101, Carbon Dioxide Level 24, Anion Gap 10, Blood Urea Nitrogen 7, Creatinine 0.88, Estimat Glomerular Filtration Rate > 60, BUN/Creatinine Ratio 8, Glucose Level 159H, Calcium Level 9.1, Corrected Calcium 9.3, Phosphorus Level 3.6, Magnesium Level 2.0, Total Bilirubin 0.8, Aspartate Amino Transf (AST/SGOT) 20, Alanine Aminotransferase (ALT/SGPT) 23, Alkaline Phosphatase 47, Total Protein 7.9, Albumin 3.8 02/17/20 10:34: Glucometer 137H 02/17/20 13:14: Vancomycin Level Trough 18.0 02/17/20 15:48: Glucometer 114H Microbiology 02/12/20 Gram Stain - Final, Complete 02/12/20 Anaerobic Culture - Final, Complete No anaerobes isolated 02/12/20 Surgical Culture - Final, Complete Staphylococcus aureus 02/12/20 MRSA Screen - Final, Complete MRSA not isolated 02/10/20 Blood Culture - Final, Complete No growth Assessment/Plan/Dx 1. Necrotic abscess of L side of scrotum, with open wound. Plan: Do not believe the patient at this time would be a candidate for Negative Pressure wound Therapy. Considerations as above. VICTORINA FORREST MD February 17, 2020 18:41
[2020-02-17 20:18] VITALS: BP 166/85
[2020-02-17] MEDS: ACETAMINOPHEN 325 MG TABLET PO PRN (20:59)
[2020-02-17 23:30] VITALS: BP 131/89
[2020-02-18] MEDS: fentaNYL INJECTION 100 MCG/2 ML AMP IV PRN ×7 (03:31→20:28)
[2020-02-18 04:55] VITALS: BP 159/84
[2020-02-18 05:21] LABS: BASOPHILS # (AUTO) 0.1 10^3/uL (0.0-0.1); BASOPHILS % (AUTO) 0 % (0-10); EOSINOPHILS # (AUTO) 0.4 10^3/uL (0.0-0.3); EOSINOPHILS % (AUTO) 3 % (0-10); HEMATOCRIT 37 % (40-54); HEMOGLOBIN 12.7 G/DL (13.3-17.7); LYMPHOCYTES # (AUTO) 1.4 X 10^3 (1.0-4.0); LYMPHOCYTES % (AUTO) 13 % (12-44); MEAN CORPUSCULAR HEMOGLOBIN 30 PG (25-34); MEAN CORPUSCULAR HGB CONC 34 G/DL (32-36); MEAN CORPUSCULAR VOLUME 87 FL (80-99); MEAN PLATELET VOLUME 9.6 FL (7.4-10.4); MONOCYTES # (AUTO) 1.6 X 10^3 (0.0-1.0); MONOCYTES % (AUTO) 14 % (0-12); NEUTROPHILS % (AUTO) 70 % (42-75); PLATELET COUNT 349 10^3/uL (130-400); RED CELL DISTRIBUTION WIDTH 12.8 % (10.0-14.5); WHITE BLOOD COUNT 11.5 10^3/uL (4.3-11.0)
[2020-02-18 05:32] LABS: CHLORIDE 101 MMOL/L (98-107); SODIUM 137 MMOL/L (135-145)
[2020-02-18 05:33] LABS: CALCIUM 9.3 MG/DL (8.5-10.1)
[2020-02-18 05:34] LABS: GLUCOSE 122 MG/DL (70-105)
[2020-02-18 05:35] LABS: CARBON DIOXIDE 25 MMOL/L (21-32)
[2020-02-18 05:37] LABS: PHOSPHORUS 4.2 MG/DL (2.3-4.7)
[2020-02-18 05:38] LABS: CREATININE SERUM 0.91 MG/DL (0.60-1.30); GFR ESTIMATED > 60
[2020-02-18 05:39] LABS: BUN/CREATININE RATIO 9
[2020-02-18 05:40] LABS: MAGNESIUM 2.2 MG/DL (1.6-2.4)
[2020-02-18] MEDS: inSUlin ASPART (NovoLOG) 1 UNIT/0.01 ML (CHARGE PER UNIT) SQ SCH ×4 (05:55→21:00)
[2020-02-18] MEDS: CATHETER FLUSH 10 ML SYR IV SCH ×3 (05:55→22:30)
--- NOTE | 2020-02-18 06:09 | Progress Note - Hospitalist ---
Subjective HPI/CC On Admission Date Seen by Provider: February 18, 2020 Time Seen by Provider: 10:00 Silvestre Crisostomo is a 35-year-old male with past medical history of obesity and tobacco abuse who presented with scrotal pain and swelling. He reports that a few days ago he noticed something that appeared to be an ingrown hair. He says that there was pus coming out of it. He considered lancing it himself but did not. He was urged to seek medical care by his friends. He denies any fevers or chills. He denies any nausea or vomiting. He denies any chest pain or shortness of breath. He denies any abdominal pain. He is a current every day tobacco user. He was found to have elevated blood sugars but had not been diagnosed with diabetes. Subjective/Events-last exam Pt about the same White count 11 Hgb A1C is pending Contemplating another incision and drainage on the scrotal abscess No significant changes Review of Systems General: Fatigue Objective Exam Vital Signs Vital Signs Date Time Temp Pulse Resp B/P (MAP) Pulse Ox O2 Delivery O2 Flow Rate FiO2 02/19/20 05:43 37.0 02/19/20 00:49 96 20 142/77 (98) 99 Room Air 02/18/20 20:00 2.00 02/13/20 10:11 50 Capillary Refill : Less Than 3 SecondsLess Than 3 Seconds General Appearance: No Apparent Distress, WD/WN, Chronically ill Respiratory: Lungs Clear Cardiovascular: Regular Rate, Rhythm Results/Procedures Lab Patient resulted labs reviewed. Imaging: Reviewed Imaging Report Assessment/Plan Assessment and Plan Assess & Plan/Chief Complaint Assessment: Scrotal abscess s/p I&D 02/12/20 and in need of additional debridement per Dr Evans yesterday 02/16/20 DM s/p VDRF Obesity Smoker Plan: IV abx Monitor closely I&D again? Diagnosis/Problems Diagnosis/Problems (1) Scrotal abscess Status: Acute (2) Morbid obesity with BMI of 45.0-49.9, adult Status: Chronic (3) Type II diabetes mellitus Status: Acute Qualifiers: Diabetes mellitus residential insulin use: without residential use Diabetes mellitus complication status: with hyperglycemia Qualified Codes: E11.65 - Type 2 diabetes mellitus with hyperglycemia (4) Tobacco abuse Status: Chronic (5) Uncontrolled type 2 diabetes mellitus with hyperglycemia Status: Acute Clinical Quality Measures DVT/VTE Risk/Contraindication: Risk Factor Score Per Nursin RFS Level Per Nursing on Admit: 3=High FREDY PRESTON DO February 18, 2020 06:09
[2020-02-18] MEDS: VANCOMYCIN 1,750 MG/NS 500 ML IVPB IV SCH ×6 (06:24→22:00)
[2020-02-18] MEDS: IBUPROFEN 600 MG (MOTRIN) TAB PO PRN ×2 (06:58→15:52)
[2020-02-18 08:08] VITALS: BP 101/62
[2020-02-18] MEDS: DOCUSATE SODIUM 100 MG (COLACE) CAP PO SCH ×2 (08:12→20:31)
[2020-02-18] MEDS: ENOXAPARIN 40 MG/0.4 ML (LOVENOX) SYR SC SCH ×2 (08:12→20:29)
[2020-02-18] MEDS: PANTOPRAZOLE 40 MG (PROTONIX) TAB PO SCH (08:12)
[2020-02-18] MEDS: NICOTINE PATCH REMOVAL TP SCH (08:12)
[2020-02-18] MEDS: SENNOSIDES 8.6 MG (SENOKOT) TAB PO SCH ×2 (08:13→20:30)
[2020-02-18] MEDS: NICOTINE 14 MG (NICODERM) PATCH TD SCH (08:13)
[2020-02-18] MEDS: MUPIROCIN 2% OINT 22 GM (BACTROBAN) TUBE TOP SCH ×2 (08:14→21:00)
--- NOTE | 2020-02-18 09:02 | Progress Note ---
Subjective Date Seen by a Provider: February 18, 2020 Time Seen by a Provider: 08:50 Subjective/Events-last exam Patient seen with Dr. Evans. Patient reports continued pain but is tolerable with current pain med regimen. Tolerating diet. Difficult to ambulate due to pain and scrotal swelling. Having BMs. Denied any fevers/chills. Objective Exam Vital Signs Date Time Temp Pulse Resp B/P (MAP) Pulse Ox O2 Delivery O2 Flow Rate FiO2 02/18/20 08:08 36.1 94 20 101/62 (75) 98 Room Air 02/18/20 04:55 36.4 90 18 159/84 (109) 98 Room Air 02/17/20 23:30 36.2 92 18 131/89 (103) 96 Room Air 02/17/20 20:45 Room Air 02/17/20 20:18 36.4 104 15 166/85 (112) 99 Room Air 02/17/20 15:39 37.3 92 15 163/93 (116) 96 Room Air 02/17/20 11:19 36.2 82 22 150/92 (111) 98 Room Air 02/17/20 09:00 Room Air I & O 02/18/20 07:00 Intake Total 41559 ml Output Total 7050 ml Balance 3350 ml Capillary Refill : Less Than 3 SecondsLess Than 3 Seconds General Appearance: No Apparent Distress, WD/WN, Obese Neck: Full Range of Motion, Normal Inspection, Supple Respiratory: Normal Breath Sounds, No Accessory Muscle Use, No Respiratory Distress Cardiovascular: Regular Rate, Rhythm, No Edema Gastrointestinal: normal bowel sounds, non tender, soft Extremity: Normal Capillary Refill, Normal Inspection, Normal Range of Motion Neurologic/Psychiatric: Alert, Oriented x3 Skin: Other (There is continued scrotal edema. There is a left scrotal incision with packing in place, scrotum is painful to palpation. There is continued redness and erythema but remains the same.) Results Lab Laboratory Tests 02/17/20 10:34: Glucometer 137H 02/17/20 13:14: Vancomycin Level Trough 18.0 02/17/20 15:48: Glucometer 114H 02/17/20 20:15: Glucometer 114H 02/18/20 05:05: White Blood Count 11.5H, Red Blood Count 4.27L, Hemoglobin 12.7L, Hematocrit 37L , Mean Corpuscular Volume 87, Mean Corpuscular Hemoglobin 30, Mean Corpuscular Hemoglobin Concent 34, Red Cell Distribution Width 12.8, Platelet Count 349, Mean Platelet Volume 9.6, Neutrophils (%) (Auto) 70, Lymphocytes (%) (Auto) 13, Monocytes (%) (Auto) 14H, Eosinophils (%) (Auto) 3, Basophils (%) (Auto) 0, Neutrophils # (Auto) 8.0H, Lymphocytes # (Auto) 1.4, Monocytes # (Auto) 1.6H, Eosinophils # (Auto) 0.4H, Basophils # (Auto) 0.1, Sodium Level 137, Potassium Level 4.0, Chloride Level 101, Carbon Dioxide Level 25, Anion Gap 11, Blood Urea Nitrogen 8, Creatinine 0.91, Estimat Glomerular Filtration Rate > 60, BUN/Creatinine Ratio 9, Glucose Level 122H, Calcium Level 9.3, Phosphorus Level 4.2, Magnesium Level 2.2 Microbiology 02/12/20 Gram Stain - Final, Complete 02/12/20 Anaerobic Culture - Final, Complete No anaerobes isolated 02/12/20 Surgical Culture - Final, Complete Staphylococcus aureus 02/12/20 MRSA Screen - Final, Complete MRSA not isolated 02/10/20 Blood Culture - Final, Complete No growth Assessment/Plan Assessment/Plan Assess & Plan/Chief Complaint left scrotal abscess/cellulitis s/p debridement x2 MRSA and on vanco. continue abx and pain meds dressing changes as directed consult wound care, possible vac. consult urology. Clinical Quality Measures DVT/VTE Risk/Contraindication: Risk Factor Score Per Nursin RFS Level Per Nursing on Admit: 3=High IVAN NAVARRO GROUP DIRECTOR February 18, 2020 09:02
[2020-02-18 11:52] VITALS: BP 133/76
[2020-02-18] MEDS: LACTATED RINGERS 1,000 ML IV SCH ×2 (15:53→20:27)
[2020-02-18] MEDS ORDERED: HYDROmorphone 2 MG/ML VIAL (DILAUDID) IVP NR (16:30)
[2020-02-18 16:58] VITALS: BP 126/88
[2020-02-18 19:22] VITALS: BP 126/86
[2020-02-19 00:49] VITALS: BP 142/77
[2020-02-19] MEDS: fentaNYL INJECTION 100 MCG/2 ML AMP IV PRN ×9 (05:19→23:57)
[2020-02-19] MEDS: IBUPROFEN 600 MG (MOTRIN) TAB PO PRN ×2 (05:22→20:52)
[2020-02-19] MEDS: VANCOMYCIN 1,750 MG/NS 500 ML IVPB IV SCH ×6 (05:23→23:03)
[2020-02-19] MEDS: CATHETER FLUSH 10 ML SYR IV SCH ×3 (05:24→23:03)
[2020-02-19 05:53] LABS: BASOPHILS % (AUTO) 0 % (0-10); EOSINOPHILS # (AUTO) 0.5 10^3/uL (0.0-0.3); EOSINOPHILS % (AUTO) 5 % (0-10); HEMATOCRIT 34 % (40-54); HEMOGLOBIN 11.6 G/DL (13.3-17.7); LYMPHOCYTES % (AUTO) 10 % (12-44); MEAN CORPUSCULAR HEMOGLOBIN 30 PG (25-34); MEAN CORPUSCULAR HGB CONC 34 G/DL (32-36); MEAN CORPUSCULAR VOLUME 87 FL (80-99); MONOCYTES # (AUTO) 1.1 X 10^3 (0.0-1.0); MONOCYTES % (AUTO) 11 % (0-12); NEUTROPHILS # (AUTO) 7.4 X 10^3 (1.8-7.8); NEUTROPHILS % (AUTO) 74 % (42-75); PLATELET COUNT 364 10^3/uL (130-400); RED CELL DISTRIBUTION WIDTH 12.7 % (10.0-14.5); WHITE BLOOD COUNT 10.1 10^3/uL (4.3-11.0)
[2020-02-19] MEDS: inSUlin ASPART (NovoLOG) 1 UNIT/0.01 ML (CHARGE PER UNIT) SQ SCH ×4 (06:00→20:33)
--- NOTE | 2020-02-19 06:08 | Progress Note - Hospitalist ---
Subjective HPI/CC On Admission Date Seen by Provider: February 19, 2020 Time Seen by Provider: 11:00 Silvestre Crisostomo is a 35-year-old male with past medical history of obesity and tobacco abuse who presented with scrotal pain and swelling. He reports that a few days ago he noticed something that appeared to be an ingrown hair. He says that there was pus coming out of it. He considered lancing it himself but did not. He was urged to seek medical care by his friends. He denies any fevers or chills. He denies any nausea or vomiting. He denies any chest pain or shortness of breath. He denies any abdominal pain. He is a current every day tobacco user. He was found to have elevated blood sugars but had not been diagnosed with diabetes. Subjective/Events-last exam Patient stable Pain meds given on regular basis Packing requires pain meds Objective Exam Vital Signs Vital Signs Date Time Temp Pulse Resp B/P (MAP) Pulse Ox O2 Delivery O2 Flow Rate FiO2 02/19/20 16:13 37.6 104 18 131/83 (99) 98 Room Air 02/19/20 09:00 2.00 02/13/20 10:11 50 Capillary Refill : Less Than 3 SecondsLess Than 3 Seconds General Appearance: No Apparent Distress, WD/WN, Chronically ill, Obese Results/Procedures Lab Laboratory Tests 02/19/20 05:05 Patient resulted labs reviewed. Imaging: Reviewed Imaging Report Assessment/Plan Assessment and Plan Assess & Plan/Chief Complaint Assessment: Scrotal abscess s/p I&D 02/12/20 and in need of additional debridement per Dr Evans yesterday 02/16/20 DM s/p VDRF Obesity Smoker Plan: IV abx Monitor closely I&D x 2 Diagnosis/Problems Diagnosis/Problems (1) Scrotal abscess Status: Acute (2) Morbid obesity with BMI of 45.0-49.9, adult Status: Chronic (3) Type II diabetes mellitus Status: Acute Qualifiers: Diabetes mellitus termite renewal inspector insulin use: without correction use Diabetes mellitus complication status: with hyperglycemia Qualified Codes: E11.65 - Type 2 diabetes mellitus with hyperglycemia (4) Tobacco abuse Status: Chronic (5) Uncontrolled type 2 diabetes mellitus with hyperglycemia Status: Acute Clinical Quality Measures DVT/VTE Risk/Contraindication: Risk Factor Score Per Nursin RFS Level Per Nursing on Admit: 3=High PRESTON,FREDY DO February 19, 2020 06:07
[2020-02-19 06:25] LABS: CHLORIDE 103 MMOL/L (98-107); POTASSIUM 3.9 MMOL/L (3.6-5.0); SODIUM 135 MMOL/L (135-145)
[2020-02-19 06:27] LABS: GLUCOSE 122 MG/DL (70-105)
[2020-02-19 06:28] LABS: CARBON DIOXIDE 22 MMOL/L (21-32)
[2020-02-19 06:31] LABS: CREATININE SERUM 0.84 MG/DL (0.60-1.30); GFR ESTIMATED > 60; PHOSPHORUS 3.1 MG/DL (2.3-4.7)
[2020-02-19 06:32] LABS: BUN/CREATININE RATIO 11
[2020-02-19] MEDS: SENNOSIDES 8.6 MG (SENOKOT) TAB PO SCH ×2 (07:42→20:32)
[2020-02-19] MEDS: NICOTINE 14 MG (NICODERM) PATCH TD SCH (07:42)
[2020-02-19] MEDS: ENOXAPARIN 40 MG/0.4 ML (LOVENOX) SYR SC SCH ×2 (07:42→20:33)
[2020-02-19] MEDS: PANTOPRAZOLE 40 MG (PROTONIX) TAB PO SCH (07:42)
[2020-02-19] MEDS: DOCUSATE SODIUM 100 MG (COLACE) CAP PO SCH ×2 (07:42→20:32)
[2020-02-19] MEDS: NICOTINE PATCH REMOVAL TP SCH (07:44)
[2020-02-19] MEDS: MUPIROCIN 2% OINT 22 GM (BACTROBAN) TUBE TOP SCH (07:44)
[2020-02-19 08:00] VITALS: BP 158/80
--- NOTE | 2020-02-19 10:16 | Progress Note ---
Subjective Date Seen by a Provider: February 19, 2020 Time Seen by a Provider: 10:00 Subjective/Events-last exam doing ok. still has groin pain. no fever/chills. Objective Exam Vital Signs Date Time Temp Pulse Resp B/P (MAP) Pulse Ox O2 Delivery O2 Flow Rate FiO2 02/19/20 09:00 96 Room Air 2.00 02/19/20 08:00 36.5 101 20 158/80 (106) 96 Room Air 02/19/20 05:43 37.0 02/19/20 05:43 37.0 02/19/20 05:22 37.0 02/19/20 05:19 37.0 02/19/20 05:15 37.0 02/19/20 00:49 37.0 96 20 142/77 (98) 99 Room Air 02/18/20 21:00 37.0 02/18/20 20:30 36.0 02/18/20 20:28 36.0 02/18/20 20:00 99 Room Air 2.00 02/18/20 19:22 37.3 105 20 126/86 (99) 97 Room Air 02/18/20 17:23 37.0 02/18/20 17:23 37.0 02/18/20 16:58 36.0 288 15 126/88 (101) 99 Room Air 02/18/20 11:52 35.2 99 19 133/76 (95) 95 Room Air I & O 02/19/20 07:00 Intake Total 3120 ml Output Total 4175 ml Balance -1055 ml Capillary Refill : Less Than 3 SecondsLess Than 3 Seconds General Appearance: No Apparent Distress HEENT: PERRL/EOMI Neck: Full Range of Motion Respiratory: Chest Non Tender, Decreased Breath Sounds Cardiovascular: Regular Rate, Rhythm Gastrointestinal: normal bowel sounds, non tender, soft Extremity: Normal Capillary Refill Neurologic/Psychiatric: Alert, Oriented x3 Skin: Other (edema scrotum, no redness/erythema, no crepitance/bullae) Lymphatic: No Adenopathy Results Lab Laboratory Tests 02/18/20 11:19: Glucometer 170H 02/18/20 16:21: Glucometer 159H 02/18/20 20:26: Glucometer 149H 02/19/20 05:05: White Blood Count 10.1, Red Blood Count 3.90L, Hemoglobin 11.6L, Hematocrit 34L, Mean Corpuscular Volume 87, Mean Corpuscular Hemoglobin 30, Mean Corpuscular Hemoglobin Concent 34, Red Cell Distribution Width 12.7, Platelet Count 364, Mean Platelet Volume 10.0, Neutrophils (%) (Auto) 74, Lymphocytes (%) (Auto) 10L , Monocytes (%) (Auto) 11, Eosinophils (%) (Auto) 5, Basophils (%) (Auto) 0, Neutrophils # (Auto) 7.4, Lymphocytes # (Auto) 1.0, Monocytes # (Auto) 1.1H, Eosinophils # (Auto) 0.5H, Basophils # (Auto) 0.0, Sodium Level 135, Potassium L evel 3.9, Chloride Level 103, Carbon Dioxide Level 22, Anion Gap 10, Blood Urea Nitrogen 9, Creatinine 0.84, Estimat Glomerular Filtration Rate > 60, BUN/Creatinine Ratio 11, Glucose Level 122H, Calcium Level 9.0, Phosphorus Level 3.1, Magnesium Level 2.0 Microbiology 02/12/20 Gram Stain - Final, Complete 02/12/20 Anaerobic Culture - Final, Complete No anaerobes isolated 02/12/20 Surgical Culture - Final, Complete Staphylococcus aureus 02/12/20 MRSA Screen - Final, Complete MRSA not isolated 02/10/20 Blood Culture - Final, Complete No growth Assessment/Plan Assessment/Plan Assess & Plan/Chief Complaint left scrotal abscess/cellulitis s/p debridement x2 MRSA and on vanco. consult urology. continue wet to dry BID. will need IV pain meds for dressing change due to significant pain issues. Clinical Quality Measures DVT/VTE Risk/Contraindication: Risk Factor Score Per Nursin RFS Level Per Nursing on Admit: 3=High ROBSON HART MD February 19, 2020 10:16
[2020-02-19] MEDS: LACTATED RINGERS 1,000 ML IV SCH (10:33)
--- NOTE | 2020-02-19 15:47 | NUR ---
Initial visit made by Associate Chemical Tester Eli Reynolds. No issues expressed. Spiritual support offered.
[2020-02-19 16:13] VITALS: BP 131/83
[2020-02-20 00:36] VITALS: BP 129/78
[2020-02-20] MEDS: fentaNYL INJECTION 100 MCG/2 ML AMP IV PRN ×10 (01:53→23:02)
[2020-02-20] MEDS: inSUlin ASPART (NovoLOG) 1 UNIT/0.01 ML (CHARGE PER UNIT) SQ SCH ×4 (06:08→21:25)
[2020-02-20] MEDS: CATHETER FLUSH 10 ML SYR IV SCH ×3 (06:09→22:05)
[2020-02-20] MEDS: VANCOMYCIN 1,750 MG/NS 500 ML IVPB IV SCH ×6 (06:20→22:07)
[2020-02-20 06:23] LABS: BASOPHILS % (AUTO) 0 % (0-10); EOSINOPHILS # (AUTO) 0.4 10^3/uL (0.0-0.3); EOSINOPHILS % (AUTO) 6 % (0-10); HEMATOCRIT 33 % (40-54); HEMOGLOBIN 11.3 G/DL (13.3-17.7); LYMPHOCYTES # (AUTO) 0.9 X 10^3 (1.0-4.0); LYMPHOCYTES % (AUTO) 14 % (12-44); MEAN CORPUSCULAR HEMOGLOBIN 30 PG (25-34); MEAN CORPUSCULAR HGB CONC 34 G/DL (32-36); MEAN CORPUSCULAR VOLUME 88 FL (80-99); MEAN PLATELET VOLUME 10.1 FL (7.4-10.4); MONOCYTES # (AUTO) 1.1 X 10^3 (0.0-1.0); MONOCYTES % (AUTO) 16 % (0-12); NEUTROPHILS # (AUTO) 4.2 X 10^3 (1.8-7.8); NEUTROPHILS % (AUTO) 64 % (42-75); PLATELET COUNT 350 10^3/uL (130-400); RED CELL DISTRIBUTION WIDTH 12.8 % (10.0-14.5); WHITE BLOOD COUNT 6.7 10^3/uL (4.3-11.0)
[2020-02-20 06:49] LABS: ALANINE AMINOTRANSFERASE 25 U/L (0-55); ALBUMIN 3.3 GM/DL (3.2-4.5); ALKALINE PHOSPHATASE 40 U/L (40-136); BILIRUBIN,TOTAL 0.5 MG/DL (0.1-1.0); BUN/CREATININE RATIO 10; CALCIUM 8.9 MG/DL (8.5-10.1); CARBON DIOXIDE 23 MMOL/L (21-32); CHLORIDE 103 MMOL/L (98-107); CREATININE SERUM 0.93 MG/DL (0.60-1.30); GFR ESTIMATED > 60; GLUCOSE 116 MG/DL (70-105); MAGNESIUM 2.1 MG/DL (1.6-2.4); POTASSIUM 3.5 MMOL/L (3.6-5.0); SODIUM 138 MMOL/L (135-145); TOTAL PROTEIN 7.7 GM/DL (6.4-8.2)
[2020-02-20 08:00] VITALS: BP 161/94
[2020-02-20] MEDS: PANTOPRAZOLE 40 MG (PROTONIX) TAB PO SCH (08:48)
[2020-02-20] MEDS: ENOXAPARIN 40 MG/0.4 ML (LOVENOX) SYR SC SCH ×2 (08:49→20:01)
[2020-02-20] MEDS: IBUPROFEN 600 MG (MOTRIN) TAB PO PRN (08:49)
[2020-02-20] MEDS: ONDANSETRON 4 MG (ZOFRAN) ORAL DISSOLVE TAB PO PRN (08:49)
[2020-02-20] MEDS: NICOTINE 14 MG (NICODERM) PATCH TD SCH (08:50)
[2020-02-20] MEDS: SENNOSIDES 8.6 MG (SENOKOT) TAB PO SCH ×2 (08:50→21:25)
[2020-02-20] MEDS: DOCUSATE SODIUM 100 MG (COLACE) CAP PO SCH ×2 (08:50→21:25)
[2020-02-20] MEDS: LACTATED RINGERS 1,000 ML IV SCH ×3 (08:59→22:05)
[2020-02-20 15:18] VITALS: BP 113/77
[2020-02-20] MEDS: NICOTINE PATCH REMOVAL TP SCH (15:28)
[2020-02-21] VITALS: BP 143/84
[2020-02-21] MEDS: fentaNYL INJECTION 100 MCG/2 ML AMP IV PRN ×8 (01:10→22:40)
[2020-02-21] MEDS: IBUPROFEN 600 MG (MOTRIN) TAB PO PRN ×2 (03:03→16:18)
[2020-02-21] MEDS: CATHETER FLUSH 10 ML SYR IV SCH ×3 (05:28→22:00)
[2020-02-21 06:11] LABS: BASOPHILS % (AUTO) 1 % (0-10); EOSINOPHILS # (AUTO) 0.4 10^3/uL (0.0-0.3); EOSINOPHILS % (AUTO) 7 % (0-10); HEMATOCRIT 32 % (40-54); HEMOGLOBIN 10.9 G/DL (13.3-17.7); LYMPHOCYTES % (AUTO) 16 % (12-44); MEAN CORPUSCULAR HEMOGLOBIN 30 PG (25-34); MEAN CORPUSCULAR HGB CONC 34 G/DL (32-36); MEAN CORPUSCULAR VOLUME 87 FL (80-99); MEAN PLATELET VOLUME 9.7 FL (7.4-10.4); MONOCYTES # (AUTO) 0.8 X 10^3 (0.0-1.0); MONOCYTES % (AUTO) 12 % (0-12); NEUTROPHILS # (AUTO) 4.2 X 10^3 (1.8-7.8); NEUTROPHILS % (AUTO) 66 % (42-75); PLATELET COUNT 356 10^3/uL (130-400); RED CELL DISTRIBUTION WIDTH 12.7 % (10.0-14.5); WHITE BLOOD COUNT 6.5 10^3/uL (4.3-11.0)
[2020-02-21 06:22] LABS: ALBUMIN 3.3 GM/DL (3.2-4.5); CHLORIDE 102 MMOL/L (98-107); POTASSIUM 3.7 MMOL/L (3.6-5.0); SODIUM 135 MMOL/L (135-145)
[2020-02-21 06:23] LABS: CALCIUM 8.9 MG/DL (8.5-10.1)
[2020-02-21] MEDS: inSUlin ASPART (NovoLOG) 1 UNIT/0.01 ML (CHARGE PER UNIT) SQ SCH ×4 (06:24→21:00)
[2020-02-21 06:25] LABS: GLUCOSE 153 MG/DL (70-105); TOTAL PROTEIN 7.5 GM/DL (6.4-8.2)
[2020-02-21 06:26] LABS: BILIRUBIN,TOTAL 0.5 MG/DL (0.1-1.0); CARBON DIOXIDE 24 MMOL/L (21-32)
[2020-02-21 06:28] LABS: ALKALINE PHOSPHATASE 41 U/L (40-136); CREATININE SERUM 0.97 MG/DL (0.60-1.30); GFR ESTIMATED > 60; PHOSPHORUS 4.1 MG/DL (2.3-4.7)
[2020-02-21 06:30] LABS: BUN/CREATININE RATIO 8
[2020-02-21 06:31] LABS: ALANINE AMINOTRANSFERASE 35 U/L (0-55); MAGNESIUM 2.1 MG/DL (1.6-2.4)
[2020-02-21] MEDS: VANCOMYCIN 1,750 MG/NS 500 ML IVPB IV SCH ×6 (06:32→21:36)
[2020-02-21 07:31] VITALS: BP 125/75
[2020-02-21] MEDS: PANTOPRAZOLE 40 MG (PROTONIX) TAB PO SCH (08:18)
[2020-02-21] MEDS: ENOXAPARIN 40 MG/0.4 ML (LOVENOX) SYR SC SCH ×2 (08:18→19:04)
[2020-02-21] MEDS: SENNOSIDES 8.6 MG (SENOKOT) TAB PO SCH ×2 (09:00→21:00)
[2020-02-21] MEDS: DOCUSATE SODIUM 100 MG (COLACE) CAP PO SCH ×2 (09:00→21:00)
[2020-02-21] MEDS: NICOTINE 14 MG (NICODERM) PATCH TD SCH (09:00)
[2020-02-21] MEDS: NICOTINE PATCH REMOVAL TP SCH (09:00)
--- NOTE | 2020-02-21 12:53 | Progress Note - Hospitalist ---
Subjective HPI/CC On Admission Date Seen by Provider: February 21, 2020 Time Seen by Provider: 12:42 Silvestre Crisostomo is a 35-year-old male with past medical history of obesity and tobacco abuse who presented with scrotal pain and swelling. He reports that a few days ago he noticed something that appeared to be an ingrown hair. He says that there was pus coming out of it. He considered lancing it himself but did not. He was urged to seek medical care by his friends. He denies any fevers or chills. He denies any nausea or vomiting. He denies any chest pain or shortness of breath. He denies any abdominal pain. He is a current every day tobacco user. He was found to have elevated blood sugars but had not been diagnosed with diabetes. Subjective/Events-last exam Pt laying in bed sleeping soundly when I entered room. When I awoke patient he said he was in a lot of pain. Only other complaint was about getting a sandwich he didn't order for lunch and would like me to remove his tray. Objective Exam Vital Signs Vital Signs Date Time Temp Pulse Resp B/P (MAP) Pulse Ox O2 Delivery O2 Flow Rate FiO2 02/21/20 08:00 Room Air 02/21/20 08:00 16 02/21/20 07:31 36.3 74 125/75 (92) 97 02/19/20 21:00 2.00 Capillary Refill : Less Than 3 SecondsLess Than 3 Seconds General Appearance: No Apparent Distress, Obese Respiratory: Lungs Clear, No Respiratory Distress Cardiovascular: Regular Rate, Rhythm, No Murmur Results/Procedures Lab Laboratory Tests 02/21/20 06:00 Patient resulted labs reviewed. Imaging: Reviewed Imaging Report Assessment/Plan Assessment and Plan Assess & Plan/Chief Complaint Assessment: Scrotal abscess s/p I&D 02/12/20 and in need of additional debridement per Dr Evans 02/16/20 DM s/p VDRF- now extubated Obesity Smoker Plan: IV abx- continue for MRSA in wound Monitor closely I&D x 2 Wound care consulted Urology consulted per Dr Evans's note Clinical Quality Measures DVT/VTE Risk/Contraindication: Risk Factor Score Per Nursin RFS Level Per Nursing on Admit: 3=High MUKESH HENDERSON MD February 21, 2020 12:53
[2020-02-21] MEDS: LACTATED RINGERS 1,000 ML IV SCH (14:30)
[2020-02-21 15:57] VITALS: BP 150/79
[2020-02-22] VITALS: BP 132/78
[2020-02-22] MEDS: LACTATED RINGERS 1,000 ML IV SCH (02:39)
[2020-02-22] MEDS: fentaNYL INJECTION 100 MCG/2 ML AMP IV PRN ×8 (02:40→22:06)
[2020-02-22 05:03] LABS: BASOPHILS % (AUTO) 0 % (0-10); EOSINOPHILS # (AUTO) 0.4 10^3/uL (0.0-0.3); EOSINOPHILS % (AUTO) 6 % (0-10); HEMATOCRIT 34 % (40-54); HEMOGLOBIN 11.5 G/DL (13.3-17.7); LYMPHOCYTES # (AUTO) 0.9 X 10^3 (1.0-4.0); LYMPHOCYTES % (AUTO) 14 % (12-44); MEAN CORPUSCULAR HEMOGLOBIN 30 PG (25-34); MEAN CORPUSCULAR HGB CONC 34 G/DL (32-36); MEAN CORPUSCULAR VOLUME 87 FL (80-99); MEAN PLATELET VOLUME 9.8 FL (7.4-10.4); MONOCYTES % (AUTO) 15 % (0-12); NEUTROPHILS # (AUTO) 4.3 X 10^3 (1.8-7.8); NEUTROPHILS % (AUTO) 66 % (42-75); PLATELET COUNT 366 10^3/uL (130-400); RED CELL DISTRIBUTION WIDTH 12.6 % (10.0-14.5); WHITE BLOOD COUNT 6.5 10^3/uL (4.3-11.0)
[2020-02-22 05:19] LABS: CHLORIDE 100 MMOL/L (98-107); POTASSIUM 4.4 MMOL/L (3.6-5.0); SODIUM 134 MMOL/L (135-145)
[2020-02-22 05:20] LABS: CALCIUM 8.9 MG/DL (8.5-10.1); GLUCOSE 124 MG/DL (70-105)
[2020-02-22 05:22] LABS: CARBON DIOXIDE 24 MMOL/L (21-32)
[2020-02-22 05:24] LABS: CREATININE SERUM 0.93 MG/DL (0.60-1.30); GFR ESTIMATED > 60; PHOSPHORUS 3.4 MG/DL (2.3-4.7)
[2020-02-22 05:25] LABS: BUN/CREATININE RATIO 11
[2020-02-22] MEDS: CATHETER FLUSH 10 ML SYR IV SCH ×3 (05:36→20:01)
[2020-02-22] MEDS: inSUlin ASPART (NovoLOG) 1 UNIT/0.01 ML (CHARGE PER UNIT) SQ SCH ×4 (05:37→19:59)
[2020-02-22] MEDS: VANCOMYCIN 1,750 MG/NS 500 ML IVPB IV SCH ×6 (05:54→22:04)
[2020-02-22] MEDS: ENOXAPARIN 40 MG/0.4 ML (LOVENOX) SYR SC SCH ×2 (05:59→19:53)
[2020-02-22 08:00] VITALS: BP 109/57
[2020-02-22] MEDS: PANTOPRAZOLE 40 MG (PROTONIX) TAB PO SCH (08:43)
[2020-02-22] MEDS: IBUPROFEN 600 MG (MOTRIN) TAB PO PRN ×2 (08:43→20:06)
[2020-02-22] MEDS: NICOTINE 14 MG (NICODERM) PATCH TD SCH (09:00)
[2020-02-22] MEDS: NICOTINE PATCH REMOVAL TP SCH (09:00)
[2020-02-22] MEDS: SENNOSIDES 8.6 MG (SENOKOT) TAB PO SCH ×2 (09:00→19:59)
[2020-02-22] MEDS: DOCUSATE SODIUM 100 MG (COLACE) CAP PO SCH ×2 (10:31→19:55)
--- NOTE | 2020-02-22 11:02 | Progress Note - Hospitalist ---
Subjective HPI/CC On Admission Date Seen by Provider: February 22, 2020 Time Seen by Provider: 09:50 Silvestre Crisostomo is a 35-year-old male with past medical history of obesity and tobacco abuse who presented with scrotal pain and swelling. He reports that a few days ago he noticed something that appeared to be an ingrown hair. He says that there was pus coming out of it. He considered lancing it himself but did not. He was urged to seek medical care by his friends. He denies any fevers or chills. He denies any nausea or vomiting. He denies any chest pain or shortness of breath. He denies any abdominal pain. He is a current every day tobacco user. He was found to have elevated blood sugars but had not been diagnosed with diabetes. Subjective/Events-last exam he denies any complaints concerns. He denies any fevers or chills. He denies any chest pain or shortness of breath. He denies any worsening pain or swelling in his scrotum. His been eating and drinking well. Objective Exam Vital Signs Vital Signs Date Time Temp Pulse Resp B/P (MAP) Pulse Ox O2 Delivery O2 Flow Rate FiO2 02/22/20 08:00 35.3 88 18 109/57 (74) 93 Room Air 02/21/20 20:59 2.00 Capillary Refill : Less Than 3 SecondsLess Than 3 Seconds General Appearance: No Apparent Distress, Obese Respiratory: Lungs Clear, Normal Breath Sounds, No Respiratory Distress Cardiovascular: Regular Rate, Rhythm, No Edema, No Murmur Gastrointestinal: Normal Bowel Sounds, Non Tender, Soft Genital/Rectal: Other (scrotal dressing in place, Cross catheter present) Extremity: Normal Inspection, Non Tender, No Pedal Edema Neurologic/Psychiatric: Alert, Oriented x3, No Motor/Sensory Deficits, Normal Mood/Affect Skin: Normal Color, Warm/Dry Results/Procedures Lab Laboratory Tests 02/22/20 04:22 Patient resulted labs reviewed. Imaging: Reviewed Imaging Report Assessment/Plan Assessment and Plan Assess & Plan/Chief Complaint Scrotal abscess Surgery following, appreciate assistance Underwent I&D 02/11 and repeat 02/15 Culture growing MRSA Continue vancomycin Type II diabetes mellitus with hyperglycemia Sliding scale insulin Hemoglobin A1c 7.7% Needs to be started on metformin on discharge Morbid obesity BMI 46, clinically significant, no acute management needs Tobacco abuse Nicotine patch ordered Acute hypoxic respiratory failure, resolved Required brief period of intubation following initial I&D DVT prophylaxis: Lovenox Diagnosis/Problems Diagnosis/Problems (1) Scrotal abscess Status: Acute (2) Type II diabetes mellitus Status: Acute Qualifiers: Diabetes mellitus nursing home insulin use: without rat exterminator use Diabetes mellitus complication status: with hyperglycemia Qualified Codes: E11.65 - Type 2 diabetes mellitus with hyperglycemia (3) Morbid obesity with BMI of 45.0-49.9, adult Status: Chronic (4) Tobacco abuse Status: Chronic Clinical Quality Measures DVT/VTE Risk/Contraindication: Risk Factor Score Per Nursin RFS Level Per Nursing on Admit: 3=High ROSCOE CONNER MD February 22, 2020 11:02
--- NOTE | 2020-02-22 14:19 | Progress Note - Surgery ---
Subjective Time Seen by a Provider: 13:51 Subjective/Events-last exam Pt seen and examined, states the pain is a little better and thinks maybe wound is slightly better; "but I can't see it". Review of Systems Pulmonary: No Dyspnea, No Cough Cardiovascular: No: Chest Pain, Palpitations Gastrointestinal: No: Nausea, Vomiting, Abdominal Pain Objective Exam Vital Signs Date Time Temp Pulse Resp B/P (MAP) Pulse Ox O2 Delivery O2 Flow Rate FiO2 02/22/20 08:00 35.3 88 18 109/57 (74) 93 Room Air 02/22/20 06:39 36.6 02/22/20 06:39 36.6 02/22/20 05:55 36.6 02/22/20 05:54 36.6 02/22/20 03:00 36.6 02/22/20 03:00 36.6 02/22/20 02:40 36.6 02/22/20 02:39 36.6 02/22/20 00:20 36.6 02/22/20 00:00 36.6 82 20 132/78 (96) 98 Room Air 02/21/20 22:40 36.7 02/21/20 21:00 36.7 02/21/20 20:59 99 Room Air 2.00 02/21/20 20:25 36.7 02/21/20 19:40 36.7 02/21/20 19:01 36.7 02/21/20 15:57 39.0 96 20 150/79 (102) 99 Room Air I & O 02/22/20 07:00 Intake Total 3400 ml Output Total 6150 ml Balance -2750 ml Capillary Refill : Less Than 3 SecondsLess Than 3 Seconds General Appearance: No Apparent Distress, Obese HEENT: PERRL/EOMI Respiratory: Lungs Clear, Normal Breath Sounds, No Respiratory Distress Cardiovascular: Regular Rate, Rhythm, No Murmur Gastrointestinal: normal bowel sounds, non tender, soft Extremity: No Pedal Edema Neurologic/Psychiatric: Alert, Oriented x3 Skin: Rash (in bilateral inguinal creases), Other (open wound no signs of drainage, still firm scrotal sack with mild erythema) Results Lab Laboratory Tests 02/21/20 16:00: Glucometer 108 02/21/20 20:30: Glucometer 119H 02/22/20 04:22: White Blood Count 6.5, Red Blood Count 3.88L, Hemoglobin 11.5L, Hematocrit 34L, Mean Corpuscular Volume 87, Mean Corpuscular Hemoglobin 30, Mean Corpuscular Hemoglobin Concent 34, Red Cell Distribution Width 12.6, Platelet Count 366, Mean Platelet Volume 9.8, Neutrophils (%) (Auto) 66, Lymphocytes (%) (Auto) 14, Monocytes (%) (Auto) 15H, Eosinophils (%) (Auto) 6, Basophils (%) (Auto) 0, Neutrophils # (Auto) 4.3, Lymphocytes # (Auto) 0.9L, Monocytes # (Auto) 1.0, Eosinophils # (Auto) 0.4H, Basophils # (Auto) 0.0, Sodium Level 134L, Potassium Level 4.4, Chloride Level 100, Carbon Dioxide Level 24, Anion Gap 10, Blood Urea Nitrogen 10, Creatinine 0.93, Estimat Glomerular Filtration Rate > 60, BUN/Creatinine Ratio 11, Glucose Level 124H, Calcium Level 8.9, Phosphorus Level 3.4, Magnesium Level 2.0 02/22/20 11:57: Glucometer 154H Microbiology 02/12/20 Gram Stain - Final, Complete 02/12/20 Anaerobic Culture - Final, Complete No anaerobes isolated 02/12/20 Surgical Culture - Final, Complete Staphylococcus aureus 02/12/20 MRSA Screen - Final, Complete MRSA not isolated 02/10/20 Blood Culture - Final, Complete No growth Assessment/Plan Assessment/Plan Assessment/Plan Left scrotal abscess/cellulitis MRSA Candidemia Plan to order Miconazole powder for yeast infection, nurse to change dressing. Will keep pt one more day so Dr. Evans can reasses (since he is the most familiar). Continue PO ABX, elevate scrotal sack; does not appear to need any more debridement at this time. Clinical Quality Measures DVT/VTE Risk/Contraindication: Risk Factor Score Per Nursin RFS Level Per Nursing on Admit: 3=High LIBBY MENDENHALL DO February 22, 2020 14:19
[2020-02-22 16:25] VITALS: BP 118/77
--- NOTE | 2020-02-22 16:50 | NUR ---
GROIN ELEVATED WITH ROLLED UP BLANKET. PT GIVEN PAIN MEDICATION AND TOLERATED WELL. ENCOURAGED PT TO CLEAN CATHETER OFTEN.
[2020-02-22] MEDS: MICONAZOLE 2% POWDER (DESENEX AF) 90 GM TOP SCH (21:39)
[2020-02-23] VITALS: BP 118/77
[2020-02-23] MEDS: fentaNYL INJECTION 100 MCG/2 ML AMP IV PRN ×4 (00:08→11:44)
[2020-02-23 04:56] LABS: BASOPHILS % (AUTO) 0 % (0-10); EOSINOPHILS # (AUTO) 0.4 10^3/uL (0.0-0.3); EOSINOPHILS % (AUTO) 8 % (0-10); HEMATOCRIT 34 % (40-54); HEMOGLOBIN 11.5 G/DL (13.3-17.7); LYMPHOCYTES # (AUTO) 0.9 X 10^3 (1.0-4.0); LYMPHOCYTES % (AUTO) 18 % (12-44); MEAN CORPUSCULAR HEMOGLOBIN 30 PG (25-34); MEAN CORPUSCULAR HGB CONC 34 G/DL (32-36); MEAN CORPUSCULAR VOLUME 88 FL (80-99); MEAN PLATELET VOLUME 9.9 FL (7.4-10.4); MONOCYTES # (AUTO) 0.7 X 10^3 (0.0-1.0); MONOCYTES % (AUTO) 15 % (0-12); NEUTROPHILS # (AUTO) 2.9 X 10^3 (1.8-7.8); NEUTROPHILS % (AUTO) 59 % (42-75); PLATELET COUNT 342 10^3/uL (130-400); WHITE BLOOD COUNT 4.9 10^3/uL (4.3-11.0)
[2020-02-23 05:12] LABS: CHLORIDE 103 MMOL/L (98-107); POTASSIUM 4.1 MMOL/L (3.6-5.0); SODIUM 137 MMOL/L (135-145)
[2020-02-23 05:13] LABS: CALCIUM 8.7 MG/DL (8.5-10.1)
[2020-02-23 05:14] LABS: GLUCOSE 105 MG/DL (70-105)
[2020-02-23 05:15] LABS: CARBON DIOXIDE 24 MMOL/L (21-32)
[2020-02-23 05:17] LABS: PHOSPHORUS 3.9 MG/DL (2.3-4.7)
[2020-02-23 05:18] LABS: BUN/CREATININE RATIO 11; CREATININE SERUM 1.03 MG/DL (0.60-1.30); GFR ESTIMATED > 60
[2020-02-23 05:20] LABS: MAGNESIUM 2.2 MG/DL (1.6-2.4)
[2020-02-23] MEDS: VANCOMYCIN 1,750 MG/NS 500 ML IVPB IV SCH ×2 (05:34)
[2020-02-23] MEDS: CATHETER FLUSH 10 ML SYR IV SCH ×2 (05:38→14:00)
[2020-02-23 05:51] VITALS: BP 112/78
[2020-02-23] MEDS: inSUlin ASPART (NovoLOG) 1 UNIT/0.01 ML (CHARGE PER UNIT) SQ SCH (05:56)
[2020-02-23] MEDS: ENOXAPARIN 40 MG/0.4 ML (LOVENOX) SYR SC SCH (05:57)
[2020-02-23 08:00] VITALS: BP 130/77
[2020-02-23] MEDS: PANTOPRAZOLE 40 MG (PROTONIX) TAB PO SCH (08:03)
[2020-02-23] MEDS: NICOTINE 14 MG (NICODERM) PATCH TD SCH ×2 (08:03→08:11)
[2020-02-23] MEDS: SENNOSIDES 8.6 MG (SENOKOT) TAB PO SCH (08:03)
[2020-02-23] MEDS: DOCUSATE SODIUM 100 MG (COLACE) CAP PO SCH (08:04)
[2020-02-23] MEDS: NICOTINE PATCH REMOVAL TP SCH ×2 (08:05→08:22)
[2020-02-23] MEDS ORDERED: metFORMIN 500 MG (GLUCOPHAGE) TAB PO NR (08:11)
[2020-02-23] MEDS ORDERED: inSUlin ASPART (NovoLOG) 1 UNIT/0.01 ML (CHARGE PER UNIT) SC SCH (08:15)
[2020-02-23] MEDS ORDERED: LINEZOLID (ZYVOX) 600 MG TAB PO SCH (09:00)
[2020-02-23] MEDS: MICONAZOLE 2% POWDER (DESENEX AF) 90 GM TOP SCH (10:43)
[2020-02-23] MEDS ORDERED: METF-397 PO ×2 (10:59)
[2020-02-23] MEDS ORDERED: OXYC5TAB96 PO ×2 (10:59)
[2020-02-23] MEDS ORDERED: LNZ600T PO ×2 (10:59)
[2020-02-23] MEDS ORDERED: HYDR-3875 PO ×2 (11:57)
[2020-02-23 13:19] VITALS: BP 130/77
--- NOTE | 2020-02-23 13:50 | Discharge Summary ---
Discharge Summary Hospital Course Was the Problem List Reviewed?: Yes Problems/Dx: (1) Scrotal abscess Status: Acute (2) Morbid obesity with BMI of 45.0-49.9, adult Status: Chronic (3) Type II diabetes mellitus Status: Acute Qualifiers: Qualified Codes: E11.65 - Type 2 diabetes mellitus with hyperglycemia (4) Tobacco abuse Status: Chronic (5) Uncontrolled type 2 diabetes mellitus with hyperglycemia Status: Acute Hospital Course Date of Admission: February 10, 2020 at 16:45 Admission Diagnosis : Cellulitis of scrotum Family Physician/Provider: Krissy,Local Physician Date of Discharge: 02/23/20 Discharge Diagnosis: Scrotal abscess Hospital Course: Silvestre Crisostomo is a 35 year old male with past medical history of tobacco abuse and morbid obesity who was admitted with cellulitis of the scrotum. He was started on IV antibiotics. Gen. surgery was consulted. His symptoms worsened and it appeared that there is a developing abscess, so the surgery performed an incision and drainage. His culture grew MRSA that is continued on IV vancomycin. He did not improve significantly and another incision and drainage was performed. He was continued on IV antibiotics throughout his hospitalization. He was discharged on oral linezolid. He was also found to have new onset diabetes. He was started on metformin on discharge. He needs to establish with a primary care physician. He will follow up in the wound care clinic. Labs and Pending Lab Test: Laboratory Tests 02/22/20 16:26: Glucometer 112H 02/22/20 19:53: Glucometer 104 02/23/20 04:10: White Blood Count 4.9, Red Blood Count 3.89L, Hemoglobin 11.5L, Hematocrit 34L, Mean Corpuscular Volume 88, Mean Corpuscular Hemoglobin 30, Mean Corpuscular Hemoglobin Concent 34, Red Cell Distribution Width 13.0, Platelet Count 342, Mean Platelet Volume 9.9, Neutrophils (%) (Auto) 59, Lymphocytes (%) (Auto) 18, Monocytes (%) (Auto) 15H, Eosinophils (%) (Auto) 8, Basophils (%) (Auto) 0, Neutrophils # (Auto) 2.9, Lymphocytes # (Auto) 0.9L, Monocytes # (Auto) 0.7, Eosinophils # (Auto) 0.4H, Basophils # (Auto) 0.0, Sodium Level 137, Potassium Level 4.1, Chloride Level 103, Carbon Dioxide Level 24, Anion Gap 10, Blood Urea Nitrogen 11, Creatinine 1.03, Estimat Glomerular Filtration Rate > 60, BUN/Creatinine Ratio 11, Glucose Level 105, Calcium Level 8.7, Phosphorus Level 3.9, Magnesium Level 2.2 02/23/20 10:54: Glucometer 110 Microbiology 02/12/20 Gram Stain - Final, Complete 02/12/20 Anaerobic Culture - Final, Complete No anaerobes isolated 02/12/20 Surgical Culture - Final, Complete Staphylococcus aureus 02/12/20 MRSA Screen - Final, Complete MRSA not isolated 02/10/20 Blood Culture - Final, Complete No growth Home Meds Active Lorcet Plus 7.5-325 mg Tablet (Hydrocodone/Acetaminophen) 1 Each Tablet 1 Each PO Q4H PRN 7 Days Metformin HCl 500 Mg Tablet 500 Mg PO BID 30 Days Linezolid 600 Mg Tablet 600 Mg PO BID 7 Days Assessment/Pt Instructions Take medications as prescribed. Complete your course of antibiotics even if you're feeling better. Establish care with a primary care physician. Begin taking metformin for diabetes. Follow-up in the wound clinic. Discharge Planning: <30 minutes discharge planning Discharge Instructions Discharge Diet: ADA Diet Activity as Tolerated: Yes Consultations General surgery Discharge Physical Examination Vital Signs Vital Signs Date Time Temp Pulse Resp B/P (MAP) Pulse Ox O2 Delivery O2 Flow Rate FiO2 02/23/20 13:19 39.4 89 20 130/77 100 Room Air 02/23/20 09:02 2.00 General Appearance: No Apparent Distress, Obese Respiratory: Lungs Clear, Normal Breath Sounds, No Respiratory Distress Cardiovascular: Regular Rate, Rhythm, No Edema, No Murmur Gastrointestinal: Normal Bowel Sounds, Non Tender, Soft Extremity: Normal Inspection, Non Tender, No Pedal Edema Skin: Other (Left scrotal wound with dressing in place) Neurologic/Psychiatric: Alert, Oriented x3, No Motor/Sensory Deficits, Normal Mood/Affect Allergies: Coded Allergies: No Known Drug Allergies (Unverified , 05/28/19) Copy Copies To 1: [facility] [place] Discharge Summary Date of Admission February 10, 2020 at 16:45 Date of Discharge Discharge Date: February 23, 2020 Discharge Time: 13:45 Admission Diagnosis Cellulitis of scrotum Consults/Procedures Consulations General surgery Procedures Incision and drainage Discharge Diagnosis Scrotal abscess (1) Scrotal abscess Status: Acute (2) Morbid obesity with BMI of 45.0-49.9, adult Status: Chronic (3) Type II diabetes mellitus Status: Acute Qualifiers: Qualified Codes: E11.65 - Type 2 diabetes mellitus with hyperglycemia (4) Tobacco abuse Status: Chronic (5) Uncontrolled type 2 diabetes mellitus with hyperglycemia Status: Acute Clinical Quality Measures DVT/VTE Risk/Contraindication: Risk Factor Score Per Nursin RFS Level Per Nursing on Admit: 3=High ROSCOE CONNER MD February 23, 2020 13:50
--- NOTE | 2020-02-23 14:05 | NUR ---
"RD ASSESSMENT PMHx: obesity; tobacco use PT INTERACTION: Pt was awake and pleasant during nutrition follow-up. Pt states he has been eating well since last assessment. Note avg PO intake >75% meals, per chart review. Pt states no issues with nausea, vomiting, constipation, or diarrhea since last assessment. Note last BM was 02/19, and pt currently on bowel regimen of colace BID; and senna BID, per chart review. Note pt has scrotal wound, per chart review. ABNORMAL NUTRITION-RELATED LAB VALUES Lab values WNL at this time Est. kcal needs: 2901-5188 kcal | 15-18 kcal/kg Est. Pro needs: 127-159 g Pro | 0.8-1.0 g Pro/kg PES STATEMENT: Inadequate protein intake (NI-2.1) related to increased protein needs as evidenced by presence of wound (scrotal wound) INTERVENTION: Continue with current diet order of CHO 60g/m 0snack diet. Discussed increased protein intake upon discharge. Pt verbalized understanding of information presented and appears confident to follow suggestions upon discharge. Will continue to follow and reassess as pt needs, intake, and status change. MONITOR/EVALUATE: PO Intake; Plan of Care; Hydration Status; Weight Status; Lab Values Chi Olivas, MS, RD, LD"
--- NOTE | 2020-02-23 16:30 | NUR ---
NOTE THAT PT VOICED HE WANTED HIS MEDS CALLED INTO [facility] -- THIS RN DID SO -- PER DR CONNER'S REQUEST THIS RN CHECKED PRICES -- AND WHEN THIS RN TRIED TO CALL PT AT NUMBER SHE HAD -- GOT MESSAGE THAT SAID THIS PHONE WAS NOT TAKING CALLS AT THIS TIME -- THIS RN ADVISED ANIMAL NURSE AND SHE VOICED TO NOTE THIS
[2020-02-24] MEDS ORDERED: metFORMIN 500 MG (GLUCOPHAGE) TAB PO SCH (07:00)
== END 2020-02-23 14:24 | disposition home or self-care (01) | DRG 717 ==
LOC: EDUNIT# 15:10 → ER 15:11 → 4TH 16:45 → ICU 02-12 14:43 → 4TH 02-13 13:07
PROVIDERS: ADMIT Internal Medicine; ATTEND Internal Medicine
PROC: 5A1935Z Respiratory Ventilation, Less than 24 Consecutive Hours (ICD-10-PCS; 2020-02-12)
PROC: 0JBB0ZZ Excision of Perineum Subcutaneous Tissue and Fascia, Open Approach (ICD-10-PCS; principal; 2020-02-12 11:44)
DX: N49.2 Inflammatory disorders of scrotum (principal); N50.89 Other specified disorders of the male genital organs; B95.62 Methicillin resistant Staphylococcus aureus infection as the cause of diseases classified elsewhere; E11.65 Type 2 diabetes mellitus with hyperglycemia; J96.01 Acute respiratory failure with hypoxia; Z68.42 Body mass index [BMI] 45.0-49.9, adult; E66.01 Morbid (severe) obesity due to excess calories; L73.9 Follicular disorder, unspecified; F90.9 Attention-deficit hyperactivity disorder, unspecified type; F17.220 Nicotine dependence, chewing tobacco, uncomplicated; F17.290 Nicotine dependence, other tobacco product, uncomplicated
CPT/HCPCS: 36415; 36600; 71045; 76870; 80048; 80053; 80202; 81000; 82805; 82962; 83036; 83605; 83735; 84100; 84478; 85007; 85025; 85027; 86141; 87040; 87070; 87075; 87077; 87081; 87186; 87205; 88304; 94002; 94003; 94799; 96365; 96375

== ENCOUNTER → 2020-02-24 | Outpatient (CLI) | payer SELFPAY ==
[~2020-02-24] MED LIST changes: +HYDR-3875 PO; +IBUP-2473 PO; +LNZ600T PO; +METF-397 PO; +OXYC5TAB96 PO
== END ==
LOC: WOUNDCARE 09:47
PROVIDERS: ATTEND Surgery
DX: E11.622 Type 2 diabetes mellitus with other skin ulcer (principal); L98.492 Non-pressure chronic ulcer of skin of other sites with fat layer exposed; L02.215 Cutaneous abscess of perineum; E66.01 Morbid (severe) obesity due to excess calories; T65.222A Toxic effect of tobacco cigarettes, intentional self-harm, initial encounter; F17.298 Nicotine dependence, other tobacco product, with other nicotine-induced disorders; J45.909 Unspecified asthma, uncomplicated; N49.2 Inflammatory disorders of scrotum; Z68.42 Body mass index [BMI] 45.0-49.9, adult
CPT/HCPCS: 99213

== ENCOUNTER → 2020-03-02 | Outpatient (CLI) | payer SELFPAY | LOC: WOUNDCARE 08:28 | PROVIDERS: ATTEND Surgery | DX: E11.622 Type 2 diabetes mellitus with other skin ulcer (principal); L02.215 Cutaneous abscess of perineum; L98.492 Non-pressure chronic ulcer of skin of other sites with fat layer exposed; E66.01 Morbid (severe) obesity due to excess calories; T65.222A Toxic effect of tobacco cigarettes, intentional self-harm, initial encounter; F17.218 Nicotine dependence, cigarettes, with other nicotine-induced disorders; Z68.42 Body mass index [BMI] 45.0-49.9, adult | CPT/HCPCS: 99213 ==

== ENCOUNTER → 2020-03-16 | Outpatient (CLI) | payer SELFPAY | LOC: WOUNDCARE 09:25 | PROVIDERS: ATTEND Surgery | DX: E11.622 Type 2 diabetes mellitus with other skin ulcer (principal); L98.492 Non-pressure chronic ulcer of skin of other sites with fat layer exposed; L02.215 Cutaneous abscess of perineum; E66.01 Morbid (severe) obesity due to excess calories; Z68.42 Body mass index [BMI] 45.0-49.9, adult; T65.222A Toxic effect of tobacco cigarettes, intentional self-harm, initial encounter; F17.298 Nicotine dependence, other tobacco product, with other nicotine-induced disorders; J45.909 Unspecified asthma, uncomplicated; N49.2 Inflammatory disorders of scrotum | CPT/HCPCS: A6196; G0463; 99212 ==

== ENCOUNTER → 2020-03-30 | Outpatient (CLI) | payer SELFPAY | LOC: WOUNDCARE 09:59 | PROVIDERS: ATTEND Surgery | DX: L98.492 Non-pressure chronic ulcer of skin of other sites with fat layer exposed (principal); L92.8 Other granulomatous disorders of the skin and subcutaneous tissue; L02.215 Cutaneous abscess of perineum; E11.622 Type 2 diabetes mellitus with other skin ulcer; E66.01 Morbid (severe) obesity due to excess calories; E11.52 Type 2 diabetes mellitus with diabetic peripheral angiopathy with gangrene; T65.222A Toxic effect of tobacco cigarettes, intentional self-harm, initial encounter; F17.218 Nicotine dependence, cigarettes, with other nicotine-induced disorders | CPT/HCPCS: 17250 ==